=== PATIENT | female | born 1950 | race Caucasian/White ===

== ENCOUNTER 2016-05-26 14:02 | Inpatient (IN) | payer MEDICARE, OTHER ==
[~2016-05-26] VITALS: Ht 170.2 cm; Wt 67.4 kg
[2016-05-26] VITALS (15 sets, daily range): BP systolic 92–166; BP diastolic 58–99; PULSE 44–63; RESP 14–16; TEMP 97.9; O2SAT 99–100
[~2016-05-26 14:02] MED LIST: CALCCHW25 CHEW; DIAZ2TAB PO; HYDR1SOL3 PO; LATA0.002 EACH EYE; PARO30TA2 PO; TIZA4CAP3 PO; TYLETAB34 PO; ZOLE5INJ IV; ZOLE5P IV; ZOLP10TA3 PO
[2016-05-26] MEDS ORDERED: SUCCINYLCHOLINE CHLORIDE 200 MG/10 ML VIAL ONE (14:06)
[2016-05-26] MEDS ORDERED: ETOMIDATE 40 MG/20 ML VIAL ONE (14:06)
[2016-05-26] MEDS ORDERED: PROPOFOL 1000 MG/100 ML INJ 100 ML ONE (14:07)
[2016-05-26] MEDS ORDERED: SODIUM CHLOR 0.9% 1000 ML INJ 1,000 ML IV SCH ×2 (14:14→21:48)
[2016-05-26] MEDS ORDERED: SODIUM CHLORIDE 0.9% FLUSH 5 ML FLUSH IVF PRN (14:15)
[2016-05-26] MEDS ORDERED: SUCCINYLCHOLINE CHLORIDE 200 MG/10 ML VIAL IVP ONE (14:15)
[2016-05-26] MEDS ORDERED: ETOMIDATE 20 MG/10 ML VIAL IVP ONE (14:15)
[2016-05-26] MEDS ORDERED: DEXTROSE 50% IN WATER 50 ML SYRINGE ONE (14:15)
--- NOTE | 2016-05-26 14:34 | RADRPT ---
EXAM DATE/TIME: 05/26/2016 14:22 [facility] COMPARISON: CT BRAIN W/O CONTRAST, June 09, 2012, 11:50. INDICATIONS : Altered mental status. RADIATION DOSE: 34.39 CTDIvol (mGy) MEDICAL HISTORY : Non-responsive. SURGICAL HISTORY : Non-responsive. ENCOUNTER: Initial ACUITY: 1 day PAIN SCALE: 5/10 LOCATION: cranial TECHNIQUE: Multiple contiguous axial images were obtained of the head. Using automated exposure control and adj ustment of the mA and/or kV according to patient size, radiation dose was kept as low as reasonably a chievable to obtain optimal diagnostic quality images. FINDINGS: CEREBRUM: The ventricles are normal for age. No evidence of midline shift, mass lesion, hemorrhage or acute in farction. No extra-axial fluid collections are seen. POSTERIOR FOSSA: The cerebellum and brainstem are intact. The 4th ventricle is midline. The cerebellopontine angle i s unremarkable. EXTRACRANIAL: The visualized portion of the orbits is intact. SKULL: The calvaria is intact. No evidence of skull fracture. CONCLUSION: No acute intracranial disease. Amanuel Hill MD on May 26, 2016 at 14:31 Board Certified Radiologist. This report was verified electronically.
[2016-05-26 15:24] LABS: BLOOD GAS BASE EXCESS -1.9 mmol/L (-2-2); BLOOD GAS HCO3 23 mmol/L (22-26); BLOOD GAS METHEMOGLOBIN 1.8 % (0-2); BLOOD GAS O2 HGB SATURATION 91 % (90-100); BLOOD GAS OXYGEN CONTENT 15.1 Vol % (12.0-20.0); BLOOD GAS PCO2 47 mmHg (38-42); BLOOD GAS PO2 73 mmHG (61-120); BLOOD GAS TOTAL HGB 11.7 G/DL (12.0-16.0); CRITICAL VALUE NO; FIO2 100 %; OXYGEN DEVICE VENTILATOR; TEMP CORR TO 98.6; VENT SETTINGS PRVC/14/500/+5/IT1.0
[2016-05-26 15:25] LABS: DRAW SITE RT RADIAL; NUMBER OF ARTERIAL PUNCTURES 1; STAT YES; ULNAR PULSE PRESENT
--- NOTE | 2016-05-26 15:25 | RADRPT ---
EXAM DATE/TIME: 05/26/2016 15:07 [facility] COMPARISON: No previous studies available for comparison. INDICATIONS : Post intubation. MEDICAL HISTORY : None. SURGICAL HISTORY : None. ENCOUNTER: Initial ACUITY: 1 day PAIN SCORE: Non-responsive. LOCATION: Bilateral chest FINDINGS: A single view of the chest demonstrates endotracheal tube tip in satisfactory position at the level o f the aortic arch. There is patchy left basilar airspace disease. No pneumothorax. No significant eff usion. CONCLUSION: 1. Endotracheal tube in satisfactory position. Patchy left basilar airspace disease. Tomer Tan MD on May 26, 2016 at 15:22 Board Certified Radiologist. This report was verified electronically.
[2016-05-26] MEDS ORDERED: IOHEXOL 350 MG/ML 10 ML VIAL (for RAD DIAG) IV ONE (15:29)
[2016-05-26 15:34] LABS: AUTOMATED NEUTROPHIL # 2.5 TH/MM3 (1.8-7.7); BASOPHIL % 0.9 % (0.0-2.0); EOSINOPHIL # 0.1 TH/MM3 (0-0.4); EOSINOPHIL % 2.6 % (0.0-4.0); HEMATOCRIT 33.3 % (35.0-46.0); HEMO FLAGS DIFF FINAL; MEAN CORPUSCULAR HEMOGLOBIN 28.9 PG (27.0-34.0); MONO % 8.8 % (0.0-8.0); NEUT % 61.7 % (16.0-70.0); PLATELET COUNT 161 TH/MM3 (150-450); RED BLOOD COUNT 3.92 MIL/MM3 (4.00-5.30); RED CELL DISTRIBUTION WIDTH 13.4 % (11.6-17.2)
--- NOTE | 2016-05-26 15:35 | PD ---
HPI Chief Complaint: Altered Mental Status Time Seen by Provider: 14:14 Travel History International Travel<30 days: No Contact w/Intl Traveler<30days: No Traveled to known affect area: No History of Present Illness HPI Is a 65-year-old woman who presents to the emergency department brought in by EMS after she was found down. Her friend and neighbor went to check on her after she didn't show this morning to walk her friend's dog. She was found obtunded. She is not really responding at all. From review of records she has a history of chronic neck and back pain, as well as anxiety and esophageal strictures. No other recent illness or injury. History Past Medical History Narrative Medical History of esophageal stricture status post dilatation Chronic neck pain Chronic back pain Anxiety PNEUMOCCOCAL Vaccine (Year): 2 Menopausal: Yes Social History Alcohol Use: No Tobacco Use: No Allergies-Medications (Allergen,Severity, Reaction): Coded Allergies: Corticosteroids (Verified Allergy, Severe, Anaphylaxis, 05/26/16) Reported Meds & Prescriptions Reported Meds & Active Scripts Active Reclast Inj (Zoledronic Acid) 5 Mg/100 Ml Inj 5 Mg IV Q365D Paroxetine (Paroxetine HCl) 30 Mg Tab 30 Mg PO DAILY Take one in AM daily. Reported Omeprazole 20 Mg Tab 20 Mg PO DAILY Trazodone (Trazodone HCl) 100 Mg Tab 100 Mg PO HS PRN Sertraline (Sertraline HCl) 50 Mg Tab 50 Mg PO DAILY K2 Plus D3 100-1000 Mcg-Unit (Vitamin D & K) 1 Tab Tab 1 Tab PO HS [place] (Hydrocodone-Acetaminophen) 7.5-325 mg Tab 1 Tab PO Q6H PRN Calcium 500 Mg Tab 500 Mg PO DAILY Zolpidem (Zolpidem Tartrate) 10 Mg Tab 10 Mg PO HS PRN Tizanidine (Tizanidine HCl) 4 Mg Cap 2 Mg PO Q6HR Latanoprost Opth Drops (Latanoprost) 0.005% Drops 1 Drop EACH EYE HS Refrigerate until opened. Diazepam 2 Mg Tab 2 Mg PO HS PRN Tylenol-Codeine #3 (Acetaminophen-Codeine) 300-30 mg Tab 1 Tab PO Q4-6H PRN Review of Systems Except as stated in HPI: all other systems reviewed are Neg Physical Exam Narrative GENERAL: 65-year-old woman, obtunded, unresponsive SKIN: Warm and dry. HEAD: Atraumatic. Normocephalic. EYES: Pupils equal and round about 34 mm. Possibly some disconjugate gaze. Doll's eye appears intact. ENT: No nasal bleeding or discharge. Mucous membranes pink and moist. NECK: Trachea midline. No JVD. CARDIOVASCULAR: Regular rate and rhythm. No murmur appreciated. RESPIRATORY: No accessory muscle use. Clear to auscultation. Breath sounds equal bilaterally. GASTROINTESTINAL: Abdomen soft, non-tender, nondistended. Hepatic and splenic margins not palpable. MUSCULOSKELETAL: No obvious deformities. No edema. NEUROLOGICAL: Patient with no response to any stimuli. She will occasionally flicker the left hand. Movement of the lower extremities. Data Data Last Documented VS Vital Signs Date Time Temp Pulse Resp B/P Pulse Ox O2 Delivery O2 Flow Rate FiO2 05/26/16 16:34 100 05/26/16 16:00 45 15 131/73 100 Ventilator 05/26/16 14:15 97.9 Orders Etomidate Inj (Amidate Inj) (05/26/16 14:06) Succinylcholine Inj (Quelicin Inj) (05/26/16 14:06) Propofol 1000 Mg/100 Ml Inj (Diprivan 10 (05/26/16 14:07) Dextrose 50% In Tl (Syr) Inj (D50w (Syr (05/26/16 14:15) Electrocardiogram (05/26/16 14:14) Alcohol (Ethanol) (05/26/16 14:14) Complete Blood Count With Diff (05/26/16 14:14) Comprehensive Metabolic Panel (05/26/16 14:14) Drug Screen, Random Urine (05/26/16 14:14) Prothrombin Time / Inr (Pt) (05/26/16 14:14) Act Partial Throm Time (Ptt) (05/26/16 14:14) Salicylates (Aspirin) (05/26/16 14:14) Troponin I (05/26/16 14:14) Tylenol (Acetaminophen) (05/26/16 14:14) Lactic Acid Sepsis Protocol (05/26/16 14:14) Urinalysis - C+S If Indicated (05/26/16 14:14) Arterial Blood Gas (Abg) (05/26/16 14:14) Blood Culture (05/26/16 14:14) Chest, Single Ap (05/26/16 14:14) Ct Brain W/O Iv Contrast(Rout) (05/26/16 14:14) Blood Glucose (05/26/16 14:14) Ecg Monitoring (05/26/16 14:14) Iv Access Insert/Monitor (05/26/16 14:14) Oximetry (05/26/16 14:14) Urinary Catheter Insert/Apply (05/26/16 14:14) Sodium Chloride 0.9% Flush (Ns Flush) (05/26/16 14:15) Sodium Chlor 0.9% 1000 Ml Inj (Ns 1000 M (05/26/16 14:14) Ng Gastric Tube Insert/Monitor (05/26/16 14:14) Etomidate Inj (Amidate Inj) (05/26/16 14:15) Succinylcholine Inj (Quelicin Inj) (05/26/16 14:15) Restraints Non-Violent ANDRESSA.Q3H (05/26/16 14:14) Cta Neck W Iv Contrast W 3d (05/26/16 ) Cta Brain W Iv Contrast W 3d (05/26/16 ) Ct Cerebral Perf W Iv Cont W3d (05/26/16 ) Iohexol 350 Inj (Omnipaque 350 Inj) (05/26/16 15:29) Creatine Kinase (Cpk) (05/26/16 15:41) Eeg Study (05/26/16 ) Thyroid Stimulating Hormone (05/26/16 17:14) Piperacil-Tazo 4.5 Gm Premix (Zosyn 4.5 (05/26/16 17:15) Consult Neurology (05/26/16 ) Admit Order (Ed Use Only) (05/26/16 ) Labs Laboratory Tests Test 05/26/16 05/26/16 05/26/16 15:05 15:14 15:20 White Blood Count 4.0 TH/MM3 Red Blood Count 3.92 MIL/MM3 Hemoglobin 11.3 GM/DL Hematocrit 33.3 % Mean Corpuscular Volume 85.0 FL Mean Corpuscular Hemoglobin 28.9 PG Mean Corpuscular Hemoglobin 34.0 % Concent Red Cell Distribution Width 13.4 % Platelet Count 161 TH/MM3 Mean Platelet Volume 9.5 FL Neutrophils (%) (Auto) 61.7 % Lymphocytes (%) (Auto) 26.0 % Monocytes (%) (Auto) 8.8 % Eosinophils (%) (Auto) 2.6 % Basophils (%) (Auto) 0.9 % Neutrophils # (Auto) 2.5 TH/MM3 Lymphocytes # (Auto) 1.0 TH/MM3 Monocytes # (Auto) 0.3 TH/MM3 Eosinophils # (Auto) 0.1 TH/MM3 Basophils # (Auto) 0.0 TH/MM3 CBC Comment DIFF FINAL Differential Comment Prothrombin Time 10.8 SEC Prothromb Time International 1.0 RATIO Ratio Activated Partial 20.2 SEC Thromboplast Time Sodium Level 138 MEQ/L Potassium Level 3.4 MEQ/L Chloride Level 105 MEQ/L Carbon Dioxide Level 23.7 MEQ/L Anion Gap 9 MEQ/L Blood Urea Nitrogen 14 MG/DL Creatinine 0.80 MG/DL Estimat Glomerular Filtration 72 ML/MIN Rate Random Glucose 218 MG/DL Lactic Acid Level 2.8 mmol/L Calcium Level 7.8 MG/DL Total Bilirubin 0.4 MG/DL Aspartate Amino Transf 11 U/L (AST/SGOT) Alanine Aminotransferase 19 U/L (ALT/SGPT) Alkaline Phosphatase 56 U/L Troponin I LESS THAN 0.02 NG/ML Total Protein 5.6 GM/DL Albumin 2.8 GM/DL Salicylates Level LESS THAN 1.7 MG/DL Acetaminophen Level 14.9 MCG/ML Ethyl Alcohol Level LESS THAN 3 MG/DL Blood Gas Puncture Site RT RADIAL Blood Gas Patient Temperature 98.6 Blood Gas HCO3 23 mmol/L Blood Gas Base Excess -1.9 mmol/L Blood Gas Oxygen Saturation 91 % Arterial Blood pH 7.31 Arterial Blood Partial 47 mmHg Pressure CO2 Arterial Blood Partial 73 mmHG Pressure O2 Arterial Blood Oxygen Content 15.1 Vol % Arterial Blood 2.0 % Carboxyhemoglobin Arterial Blood Methemoglobin 1.8 % Blood Gas Hemoglobin 11.7 G/DL Oxygen Delivery Device VENTILATOR Blood Gas Ventilator Setting PRVC/14/500/+5/IT1.0 Blood Gas Inspired Oxygen 100 % Urine Color YELLOW Urine Turbidity CLEAR Urine pH 5.5 Urine Specific [place] GREATER THAN 1.050 Urine Protein TRACE mg/dL Urine Glucose (UA) 1000 mg/dL Urine Ketones NEG mg/dL Urine Occult Blood NEG Urine Nitrite NEG Urine Bilirubin NEG Urine Urobilinogen LESS THAN 2.0 MG/DL Urine Leukocyte Esterase NEG Urine RBC 1 /hpf Urine WBC 2 /hpf Urine Squamous Epithelial <1 /hpf Cells Urine Mucus FEW /lpf Microscopic Urinalysis Comment CATH-CULT NOT IND Urine Opiates Screen POS Urine Barbiturates Screen NEG Urine Amphetamines Screen NEG Urine Benzodiazepines Screen POS Urine Cocaine Screen NEG Urine Cannabinoids Screen NEG MDM Medical Decision Making Medical Screen Exam Complete: Yes Emergency Medical Condition: Yes Interpretation(s) My review of EKG: Sinus bradycardia rate of 44, normal axis, normal intervals, no acute ischemia. LABS: CBC unremarkable. CMP unremarkable, hypoproteinemia, glucose 218 Troponin negative Lactate 2.8 ABG 7.31/47/73/23 UA concentrated Urine drug screen positive for opiates and benzos Acetaminophen 14.9 Alcohol negative Salicylates negative Head CT, CTA, neck CTA, brain perfusion all negative Differential Diagnosis Massive CVA, basilar CVA, sepsis, AZ, arrhythmia, other Narrative Course INITIAL: 65-year-old woman presents to the emergency department obtunded. Etiology is unclear but suspect massive CVA. Other etiologies could include hypoxic encephalopathy from ischemia, AZ, arrhythmia, sepsis. Infection or drug toxicity possible as well electrolyte possible. Patient was intubated on arrival to the emergency department. Patient was initially taken for CT which was negative. Given concern for basilar artery stroke, CTA with perfusion was ordered. Labs are pending. Cultures were sent. Reassess. FINAL: Etiology of patient's symptoms is unclear. We'll add TSH. Possible benzodiazepines or opiates poisoning. Admission to ICU. Diagnosis Primary Impression: Altered mental status Qualified Code: R40.2432 - Corine coma scale total score 3-8, at arrival to emergency department Admitting Information Admitting Physician Requests: Admit Solitario Davidson MD May 26, 2016 15:35
[2016-05-26 15:40] LABS: ANION GAP 9 MEQ/L (5-15); AST (GOT) 11 U/L (15-37); BICARBONATE 23.7 MEQ/L (21.0-32.0); BLOOD UREA NITROGEN 14 MG/DL (7-18); CHLORIDE 105 MEQ/L (98-107); GLOMERULAR FILTRATION RATE 72 ML/MIN (>89); POTASSIUM 3.4 MEQ/L (3.5-5.1); SODIUM (NA) 138 MEQ/L (136-145)
[2016-05-26 15:45] LABS: ACETAMINOPHEN 14.9 MCG/ML (10.0-30.0); ALKALINE PHOSPHATASE 56 U/L (45-117); ALT (GPT) 19 U/L (10-53); TOTAL BILIRUBIN ADULT 0.4 MG/DL (0.2-1.0)
[2016-05-26 15:46] LABS: BLOOD, URINE NEG (NEG); GLUCOSE,URINE 1000 mg/dL (NEG); KETONE, URINE NEG (NEG); MUCUS URINE FEW /lpf (OCC); NITRITE,URINE NEG (NEG); PH, URINE 5.5 (5.0-8.5); SQUAMOUS EPITHELIAL CELL URINE <1 /hpf (0-5); URINE COLOR YELLOW (YELLW/STRAW)
[2016-05-26 15:47] LABS: APTT (PATIENT) 20.2 SEC (24.3-30.1); PROTHROMBIN TIME - PATIENT 10.8 SEC (9.8-11.6)
[2016-05-26 15:49] LABS: AMPHETAMINE, URINE NEG (NEG); BARBITURATES, URINE NEG (NEG); COCAINE, URINE NEG (NEG)
[2016-05-26] MEDS ORDERED: CALC500T42 PO (15:51)
[2016-05-26] MEDS ORDERED: SERT-132 PO (15:51)
[2016-05-26] MEDS ORDERED: HYDR-3288 PO (15:51)
[2016-05-26] MEDS ORDERED: OMEP20TA PO (15:51)
[2016-05-26] MEDS ORDERED: TRAZ100T4 PO (15:51)
[2016-05-26] MEDS ORDERED: VITA1TAB6 PO (15:51)
--- NOTE | 2016-05-26 16:04 | RADRPT ---
EXAM DATE/TIME: 05/26/2016 14:43 [facility] COMPARISON: CT THORAX W/O CONTRAST, March 17, 2012, 16:41. INDICATIONS : Altered mental status. IV CONTRAST: 120 cc Omnipaque 350 (iohexol) IV RADIATION DOSE: 20.36 CTDIvol (mGy) MEDICAL HISTORY : Non-responsive. SURGICAL HISTORY : Non-responsive. ENCOUNTER: Initial ACUITY: 1 day PAIN SCALE: 5/10 LOCATION: neck TECHNIQUE: Volumetric scanning was performed using a multirow detector CT scanner. The data was post processed with a variety of visualization algorithms including full-volume maximum intensity projection, multip lanar sliding thin-slab reformation, curved-planar reformation, and surface-rendering techniques. Us ing automated exposure control and adjustment of the mA and/or kV according to patient size, radiatio n dose was kept as low as reasonably achievable to obtain optimal diagnostic quality images. FINDINGS: AORTIC ARCH: There is a three-vessel origin of the great vessels from the aorta. No evidence of ostial narrowing. RIGHT CAROTID: The common carotid artery is intact. The carotid bulb has a normal configuration without ulceration o r narrowing. The internal carotid artery lumen is smooth without stenosis. The external carotid erica ry is intact. LEFT CAROTID: The common carotid artery is intact. The carotid bulb has a normal configuration without ulceration or narrowing. The internal carotid artery lumen is smooth without stenosis. The external carotid ar armando is intact. VERTEBRALS: Left vertebral artery is dominant. No stenotic lesions are seen. CONCLUSION: 1. CTA carotids within normal limits for age. Patient intubated. Multiple small thyroid nodules simil ar to prior chest CT from 2011. Tomer Tan MD on May 26, 2016 at 15:59 Board Certified Radiologist. This report was verified electronically.
--- NOTE | 2016-05-26 16:08 | RADRPT ---
EXAM DATE/TIME: 05/26/2016 14:43 [facility] COMPARISON: No previous studies available for comparison. INDICATIONS : Altered mental status, vented. IV CONTRAST: 120 cc Omnipaque 350 (iohexol) IV RADIATION DOSE: 20.36 CTDIvol (mGy) MEDICAL HISTORY : Non-responsive. SURGICAL HISTORY : Non-responsive. ENCOUNTER: Initial ACUITY: 1 day PAIN SCALE: 5/10 LOCATION: cranial TECHNIQUE: Volumetric scanning was performed using a multi-row detector CT scanner. The data was post processed with a variety of visualization algorithms including full volume maximum intensity projection, multi -planar sliding thin slab reformation, curved planar reformation, and surface rendering techniques. Using automated exposure control and adjustment of the mA and/or kV according to patient size, radiat ion dose was kept as low as reasonably achievable to obtain optimal diagnostic quality images. FINDINGS: There is excellent visualization of the major intracranial arteries out to the second-order branch ve ssels. There is no evidence for aneurysm, vessel truncation or stenosis, and no evidence for vascula r malformation. CONCLUSION: Normal examination for a patient of this age. Tomer Tan MD on May 26, 2016 at 16:02 Board Certified Radiologist. This report was verified electronically.
--- NOTE | 2016-05-26 16:08 | RADRPT ---
EXAM DATE/TIME: 05/26/2016 14:43 [facility] COMPARISON: No previous studies available for comparison. INDICATIONS : Altered mental status. IV CONTRAST: 120 cc Omnipaque 350 (iohexol) IV RADIATION DOSE: 40.36 CTDIvol (mGy) MEDICAL HISTORY : Non-responsive. SURGICAL HISTORY : Non-responsive. ENCOUNTER: Initial ACUITY: 1 day PAIN SCALE: 5/10 LOCATION: cranial TECHNIQUE: CT perfusion of the brain was performed with calculation of input and output functions and generation of color coded blood flow, blood volume and mean transit time maps. Using automated exposure control and adjustment of the mA and/or kV according to patient size, radiation dose was kept as low as reas onably achievable to obtain optimal diagnostic quality images. FINDINGS: There is symmetric perfusion to both cerebral hemispheres, cerebellar hemispheres and normal flow is identified to the brainstem. There are no findings of infarction or ischemic penumbra. CONCLUSION: Normal examination. Tomer Tan MD on May 26, 2016 at 16:07 Board Certified Radiologist. This report was verified electronically.
[2016-05-26 16:17] LABS: COMMENT (UR) CATH-CULT NOT IND; CULTURE IF INDICATED CATH CULTURE NOT IND
[2016-05-26] MEDS ORDERED: PIPERACIL-TAZO 4.5 GM PREMIX 100 ML IV ONE (17:15)
[2016-05-26 17:20] LABS: LACTIC ACID GHOST NOT REPORTABLE
--- NOTE | 2016-05-26 18:26 | MB ---
cc: ADRIANA VOGEL MD DATE OF CONSULTATION 05/26/2016 REASON FOR CONSULTATION Altered mental status. HISTORY OF PRESENT ILLNESS The patient is vented and sedated in the emergency room. I was called in to see a 65-year-old female Ms. Cortes, who presented to the emergency department by EMS after she was found down. According to her friend and neighbor, she said they call each other sisters. She went to check on her when she did not show up this morning and she found her obtunded, not responding at all. She called EMS. The friend states that she always had "weak neck and stiff neck" that is why she retired early. She has also esophageal strictures and has undergone dilatation. She denies any recent change of her medication or lifestyle. PAST MEDICAL HISTORY 1. History of esophageal stricture status post dilatation. 2. Chronic neck pain. 3. Chronic back pain. 4. Anxiety as per the friend. SOCIAL HISTORY Denies alcohol, tobacco and recreational drug use as per her friend. FAMILY HISTORY Noncontributory. ALLERGIES STEROIDS. REVIEW OF SYSTEMS Unable to obtain. PHYSICAL EXAMINATION GENERAL: Vented sedated. HEENT: Pupils are equal, reacting to light, 2-3 mm. Head atraumatic, normocephalic. Eyes no gazing. NECK: Trachea in the midline. CARDIOVASCULAR: Regular rate and rhythm. Bradycardia, 40s. LUNGS: Clear to auscultation. No wheezes. NEUROLOGICAL: Vented, sedated. Pupils 2-3 mm equally reacting to light. No gazing. Plantars bilateral upgoing. There is some fullness of the right side of the neck. LABORATORY DATA White blood cells 4, hemoglobin 11.3, platelet count was 161. MCV 85. IMAGING Diagnostic imaging: - Head CT scan without contrast with no acute intracranial disease. DIAGNOSTIC IMPRESSION 1. Encephalopathy? metabolic/infectious 2. Unresponsive patient. No history of seizures. Possible posterior circulation stroke, vertebrobasilar ischemic stroke. PLAN 1. Neurological checks q. one hourly. 2. CTA head and neck. 3. Metabolic workup. 4. EEG. 5. DVT prophylaxis SCDs. 6. GI prophylaxis. Thank you for the opportunity to participate in the care of your patient. MD GILLIAN Aviles/MICHAELA /4:08 PM /6:10 PM SHANNON
[2016-05-26] MEDS ORDERED: POTASSIUM CHLOR 40 MEQ PREMIX 100 ML IV PRN ×2 (18:45)
[2016-05-26] MEDS ORDERED: POTASSIUM PHOSPHATE MONOBASIC 500 MG TAB PO PRN (18:45)
[2016-05-26] MEDS ORDERED: MAGNESIUM SULFATE INJ 2 GM in SODIUM CHLORIDE 0.9% INJ 96 ML IV PRN (18:45)
[2016-05-26] MEDS ORDERED: DEXTROSE 50% IN WATER 50 ML VIAL(D50) IV PUSH PRN (18:45)
[2016-05-26] MEDS ORDERED: GLUCAGON 1 MG/ML VIAL OTHER PRN (18:45)
[2016-05-26] MEDS ORDERED: POTASSIUM CL 40 MEQ/30 ML LIQ UDC PO/TUBE PRN ×2 (18:45)
[2016-05-26] MEDS ORDERED: POTASSIUM PHOSPHATE MONOBASIC 500 MG TAB PO/TUBE PRN (18:45)
[2016-05-26] MEDS ORDERED: MAGNESIUM SULFATE INJ 4 GM in SODIUM CHLORIDE 0.9% INJ 92 ML IV PRN (18:45)
[2016-05-26] MEDS ORDERED: MAGNESIUM OXIDE 400 MG TAB PO PRN (18:45)
[2016-05-26] MEDS ORDERED: POTASSIUM CHLOR 20 MEQ PREMIX 100 ML IV PRN ×2 (18:45)
[2016-05-26] MEDS ORDERED: PROPOFOL 1000 MG/100 ML INJ 100 ML IV SCH (19:45)
--- NOTE | 2016-05-26 21:04 | HHI.HP ---
HPI Service Critical Care Medicine Primary Care Physician Velma Morales MD Admission Diagnosis ams, COMA Diagnosis: Travel History International Travel<30 Days: No Contact w/Intl Traveler <30 Da: No Traveled to Known Affected Are: No History of Present Illness 65-year-old female with past medical history of chronic neck pain secondary to cervical radiculopathy, GERD, esophageal stricture s/p dilations. Her friend states she was in her usual state of health yesterday and had been out shopping with another neighbor. Today, she was not answering her phone and her neighbor saw her laying on the floor, not responsive to knocks on the door. She called 911 and patient was obtunded upon EVAC arrival. Upon arrival to the ED she was noted to be unresponsive to noxious stimuli, occasional flicker of left hand, disconjugate gaze. She was intubated for airway protection. Glucose 53. CT brain was negative. Alcohol, Tylenol, salicylate levels are negative. Urine drug screen is positive for benzodiazepines and opiates. She is on multimodal pain therapy including benzos and opiates for her neck pain. There was no obvious witnessed seizure activity. She is afebrile with no leukocytosis. She has been seen by Dr. Perez with neurology. CTA brain and neck was obtained due to concern for posterior circulation stroke. These were negative. EEG is pending. Review of Systems ROS Limitations: Clinical Condition, Intubated Past Family Social History Allergies: Coded Allergies: Corticosteroids (Verified Allergy, Severe, Anaphylaxis, 05/26/16) Past Medical History Glaucoma Cataracts Retinal detachment Cervical radiculopathy Chronic pain GERD Esophageal stricture s/p dilitation. Diverticulosis Osteopenia Past Surgical History Left ankle tendon surgery Right knee surgery Esophageal stricture dilation Jaw surgery Cataract removal Reported Medications Paroxetine 30 monos by mouth daily Sertraline 50 mg by mouth daily Trazodone 100 mg by mouth daily at bedtime when necessary sleep Ambien 10 mg by mouth daily at bedtime Diazepam to mill grams by mouth daily at bedtime Reclast 5 mill grams IV annually Tizanidine 2 mg by mouth every 6 hours when necessary muscle spasm Tylenol with Codeine 1 tab by mouth every 4 hours when necessary pain [place] 7.5 mg 1 tab by mouth every 6 hours when necessary pain Latanoprost one drop each eye daily at bedtime Omeprazole 20 mg by mouth daily Calcium 500 mg by mouth daily Vitamin D and vitamin K 1 tab by mouth daily at bedtime Family History Her father has a history of coronary artery disease; Unknown at what age of onset. Mother with diabetes mellitus Social History No history of tobacco alcohol or illicit drug use. Not . No children. Her friend and neighbor, Jeimy Diaz, states she is her healthcare surrogate. Physical Exam Vital Signs Vital Signs Date Time Temp Pulse Resp B/P Pulse Ox O2 Delivery O2 Flow Rate FiO2 05/26/16 20:30 61 14 150/82 100 Ventilator 05/26/16 20:22 62 14 166/99 100 Ventilator 05/26/16 20:05 100 40 05/26/16 17:57 100 50 05/26/16 17:43 45 14 92/58 100 Ventilator 100 05/26/16 16:34 100 05/26/16 16:00 45 15 131/73 100 Ventilator 100 05/26/16 15:00 100 100 05/26/16 15:00 44 15 153/76 100 Ventilator 100 05/26/16 14:30 44 14 142/78 100 Ventilator 100 05/26/16 14:15 97.9 45 16 128/71 100 Ventilator 100 05/26/16 14:15 45 16 100 Ventilator 100 05/26/16 14:15 45 14 128/71 100 Ventilator 100 05/26/16 14:15 100 100 05/26/16 14:04 48 124/69 99 Physical Exam Temp 97.9 blood pressure 144 of 81 pulse 60 respirations 14 on mechanical ventilation with PEEP of 5 and FiO2 40% with sats 100% GENERAL: Very thin female with temporal wasting, orotracheally intubated on sedation. SKIN: Warm and dry. There is an ecchymosis overlying her left upper arm without deformity. HEAD: Normocephalic. Atraumatic EYES: Pupils equal and round, 6 mm reactive to 4 mm bilaterally, sluggish. No scleral icterus. No injection or drainage. ENT: No nasal bleeding or discharge. Mucous membranes pink and moist. NECK: Trachea midline. No JVD. No meningismus CARDIOVASCULAR: Regular rate and rhythm, sinus rhythm on the monitor.. No murmurs rubs or gallops. RESPIRATORY: On mechanical ventilation, breathing comfortably without accessory muscle use. Lungs clear to auscultation bilaterally GASTROINTESTINAL: Abdomen soft, non-tender, nondistended. Bowel sounds active. MUSCULOSKELETAL: Extremities without clubbing, cyanosis, or edema. No obvious deformities. NEUROLOGICAL: Sedation held. Resists attempts at eye opening initially, later opened eyes spontaneously, made eye contact and tracked bilaterally. Follows commands by squeezing hands bilaterally and moving feet bilaterally. No response to Babinski. Laboratory Laboratory Tests Test 05/26/16 05/26/16 05/26/16 05/26/16 15:05 15:14 15:20 20:15 White Blood Count 4.0 Red Blood Count 3.92 Hemoglobin 11.3 Hematocrit 33.3 Mean Corpuscular Volume 85.0 Mean Corpuscular Hemoglobin 28.9 Mean Corpuscular Hemoglobin 34.0 Concent Red Cell Distribution Width 13.4 Platelet Count 161 Mean Platelet Volume 9.5 Neutrophils (%) (Auto) 61.7 Lymphocytes (%) (Auto) 26.0 Monocytes (%) (Auto) 8.8 Eosinophils (%) (Auto) 2.6 Basophils (%) (Auto) 0.9 Neutrophils # (Auto) 2.5 Lymphocytes # (Auto) 1.0 Monocytes # (Auto) 0.3 Eosinophils # (Auto) 0.1 Basophils # (Auto) 0.0 CBC Comment DIFF FINAL Differential Comment Prothrombin Time 10.8 Prothromb Time International 1.0 Ratio Activated Partial 20.2 Thromboplast Time Sodium Level 138 Potassium Level 3.4 Chloride Level 105 Carbon Dioxide Level 23.7 Anion Gap 9 Blood Urea Nitrogen 14 Creatinine 0.80 Estimat Glomerular Filtration 72 Rate Random Glucose 218 Lactic Acid Level 2.8 Calcium Level 7.8 Total Bilirubin 0.4 Aspartate Amino Transf 11 (AST/SGOT) Alanine Aminotransferase 19 (ALT/SGPT) Alkaline Phosphatase 56 Troponin I LESS THAN 0.02 Total Protein 5.6 Albumin 2.8 Salicylates Level LESS THAN 1.7 Acetaminophen Level 14.9 Ethyl Alcohol Level LESS THAN 3 Blood Gas Puncture Site RT RADIAL Blood Gas Patient Temperature 98.6 Blood Gas HCO3 23 Blood Gas Base Excess -1.9 Blood Gas Oxygen Saturation 91 Arterial Blood pH 7.31 Arterial Blood Partial 47 Pressure CO2 Arterial Blood Partial 73 Pressure O2 Arterial Blood Oxygen Content 15.1 Arterial Blood 2.0 Carboxyhemoglobin Arterial Blood Methemoglobin 1.8 Blood Gas Hemoglobin 11.7 Oxygen Delivery Device VENTILATOR Blood Gas Ventilator Setting PRVC/14/500/+5/IT1.0 Blood Gas Inspired Oxygen 100 Urine Color YELLOW Urine Turbidity CLEAR Urine pH 5.5 Urine Specific [place] GREATER THAN 1.050 Urine Protein TRACE Urine Glucose (UA) 1000 Urine Ketones NEG Urine Occult Blood NEG Urine Nitrite NEG Urine Bilirubin NEG Urine Urobilinogen LESS THAN 2.0 Urine Leukocyte Esterase NEG Urine RBC 1 Urine WBC 2 Urine Squamous Epithelial <1 Cells Urine Mucus FEW Microscopic Urinalysis Comment CATH-CULT NOT IND Urine Opiates Screen POS Urine Barbiturates Screen NEG Urine Amphetamines Screen NEG Urine Benzodiazepines Screen POS Urine Cocaine Screen NEG Urine Cannabinoids Screen NEG Ammonia 17 Date/Time Procedure Status Source Growth 05/26/16 15:05 Aerobic Blood Culture Received Blood Peripheral Pending 05/26/16 15:05 Anaerobic Blood Culture Received Blood Peripheral Pending Result Diagram: 05/26/16 1505 05/26/16 1505 Assessment and Plan Problem List: (1) GERD (gastroesophageal reflux disease) ICD Code: K21.9 Status: Chronic (2) Esophagitis ICD Code: K20.9 Status: Chronic (3) Esophageal stricture ICD Code: K22.2 Status: Chronic (4) Lactic acidemia ICD Code: E87.2 Status: Acute (5) Acute encephalopathy ICD Code: G93.40 Status: Acute (6) Chronic pain ICD Code: G89.29 Status: Chronic (7) Glaucoma ICD Code: H40.9 Status: Chronic (8) Hypokalemia ICD Code: E87.6 Status: Acute (9) Acute respiratory failure ICD Code: J96.00 Status: Acute (10) Altered mental status ICD Code: R41.82 Status: Acute (11) Hypoglycemia ICD Code: E16.2 Status: Acute Assessment and Plan NEURO: Acute encephalopathy ? Seizure CT brain 05/26/16no acute abnormality CTA brain and neck with perfusion 05/26/16normal Follow-up MRI Follow-up EEG Suspicious for seizure - Lactic acid is elevated but otherwise does not have signs of sepsis or poor perfusion. Patient with hypoglycemia. Other possibility is due sedative effect of medications, possible overdose. Mild hypercapnea on post intubation ABG. No e/o COPD Follow-up ammonia level, B-12, TSH Platelets normal Propofol for sedation. Target RASS -2. Seen by Dr. Perez with neurology RESP: Acute respiratory failure Nonsmoker PRVC tidal volume 500/rate 14/P5/inspiratory time 1/FiO2 40% Ventilator bundle. Albuterol every 2 hours when necessary Spontaneous breathing trial soon, as she is following commands now. CV: Monitor hemodynamics Troponin negative EKG NSR rate 61, normal intervals, no st/twave changes. She had a negative cardiac stress test in 2007 GI: GERD History of esophageal stricture status post dilatation Diverticulosis Nothing by mouth. OGT tube to low intermittent wall suction. We'll not initiate enteral tube feeds because anticipate extubation soon. Colace 100 bid for bowel regimen. FEN/RENAL: Lactic acidemia Hypokalemia Hypophosphatemia Torres in place. Monitor intake and output. Received 1 L NS bolus in ED. Give additional 1 L NS bolus. D5 1/2 NACl with 20 MEQ KCL/L @ 125/hr. Replace electrolytes per ICU electrolyte replacement per protocol CPK is normal Monitor creatinine ID: Acute aspiration. No leukocytosis. Chest x-ray with left lower lobe opacity. UA without evidence for infection. Received zosyn in the ED. Continue Zosyn 3.375 IV every 6 hours (probable aspiration pneumonia, community acquired) Follow-up blood cultures which are pending, HEME: Monitor CBC. Coags normal. ENDO: Hypoglycemia Glucose 53 and then given amp D50 PROPH: SCDs, Lovenox 40 mg subcutaneous daily for DVT prophylaxis. Protonix 40 mg IV daily for stress ulcer prophylaxis and history of GERD ACCESS: Peripheral IV providing adequate access at this time I updated patient's friend and reported healthcare surrogate, Jeimy Diaz, by telephone. Discussed with ED care worker time 60 minutes exclusive separately billable procedures. Problem Qualifiers (1) Altered mental status: Qualified Code: R40.2432 - [place] coma scale total score 3-8, at arrival to emergency department Leanna Amezquita MD May 26, 2016 21:04 Leanna Amezquita MD May 26, 2016 21:04
[2016-05-26] MEDS ORDERED: RESP: ALBUTEROL 2.5 MG/3 ML NEB (PRN) INH (22:00)
[2016-05-26] MEDS ORDERED: CHLORHEXIDINE GLUCONATE 2 % 1 PACK (2 CLOTHS) TOP PRN (22:00)
[2016-05-26] MEDS ORDERED: MISCELLANEOUS NURSING INFORMATION XX SCH (22:00)
[2016-05-26] MEDS ORDERED: SODIUM CHLORIDE 0.9% FLUSH 5 ML FLUSH IV FLUSH PRN (22:00)
[2016-05-26] MEDS: ENOXAPARIN SODIUM 40 MG/0.4 ML SYRINGE SQ SCH (23:32)
[2016-05-26] MEDS: PIPERACIL-TAZO 3.375 GM PREMIX 50 ML IV SCH (23:51)
[2016-05-27] VITALS (24 sets, daily range): BP systolic 124–151; BP diastolic 56–67; PULSE 70–86; RESP 14–20; TEMP 98.5–100.2; O2SAT 91–100
[2016-05-27] MEDS ORDERED: POTASSIUM PHOSPHATE INJ 30 MMOL in SODIUM CHLOR 0.9% 250 ML INJ 250 ML IV ONE (01:15)
[2016-05-27] MEDS ORDERED: SODIUM CHLOR 0.9% 1000 ML INJ 1,000 ML IV ONE (01:15)
[2016-05-27] MEDS ORDERED: PANTOPRAZOLE SODIUM 40 MG VIAL IV SCH ×2 (01:30→09:00)
[2016-05-27] MEDS: D5-1/2 NS + KCL 20 MEQ INJ 1,000 ML IV SCH ×2 (02:16→08:25)
[2016-05-27 02:44] LABS: HEMATOCRIT 39.2 % (35.0-46.0); MEAN CELL VOLUME 86.5 FL (80.0-100.0); MEAN CORPUSCULAR HEMOGLOBIN 29.1 PG (27.0-34.0); MEAN CORPUSCULAR HGB CONC 33.6 % (32.0-36.0); PLATELET COUNT 169 TH/MM3 (150-450); RED BLOOD COUNT 4.54 MIL/MM3 (4.00-5.30); RED CELL DISTRIBUTION WIDTH 13.5 % (11.6-17.2); REVIEW FLAG FINAL; WHITE BLOOD COUNT 9.4 TH/MM3 (4.0-11.0)
[2016-05-27] MEDS: CHLORHEXIDINE GLUCONATE 2 % 1 PACK (2 CLOTHS) TOP SCH (04:00)
[2016-05-27] MEDS ORDERED: INSULIN ASPART SUPPLEMENTAL SCALE SQ SCH ×2 (04:00)
[2016-05-27] MEDS: PIPERACIL-TAZO 3.375 GM PREMIX 50 ML IV SCH ×3 (05:58→17:16)
[2016-05-27] MEDS: PROPOFOL 1000 MG/100 ML INJ 100 ML IV SCH ×4 (05:59→20:51)
[2016-05-27 06:13] LABS: AUTOMATED NEUTROPHIL # 7.1 TH/MM3 (1.8-7.7); BASOPHIL % 0.4 % (0.0-2.0); EOSINOPHIL # 0.1 TH/MM3 (0-0.4); EOSINOPHIL % 1.4 % (0.0-4.0); HEMATOCRIT 38.9 % (35.0-46.0); HEMO FLAGS DIFF FINAL; LYMPH % 10.5 % (9.0-44.0); MEAN CELL VOLUME 86.9 FL (80.0-100.0); MEAN CORPUSCULAR HEMOGLOBIN 28.5 PG (27.0-34.0); MEAN CORPUSCULAR HGB CONC 32.9 % (32.0-36.0); MONO % 11.8 % (0.0-8.0); NEUT % 75.9 % (16.0-70.0); PLATELET COUNT 151 TH/MM3 (150-450); RED BLOOD COUNT 4.48 MIL/MM3 (4.00-5.30); RED CELL DISTRIBUTION WIDTH 13.4 % (11.6-17.2); WHITE BLOOD COUNT 9.4 TH/MM3 (4.0-11.0)
[2016-05-27 06:35] LABS: ANION GAP 10 MEQ/L (5-15); BICARBONATE 28.2 MEQ/L (21.0-32.0); CHLORIDE 107 MEQ/L (98-107); GLOMERULAR FILTRATION RATE 91 ML/MIN (>89); POTASSIUM 3.5 MEQ/L (3.5-5.1); SODIUM (NA) 145 MEQ/L (136-145)
[2016-05-27 06:39] LABS: BLOOD UREA NITROGEN 10 MG/DL (7-18)
[2016-05-27] MEDS ORDERED: PANTOPRAZOLE INJ 80 MG in SODIUM CHLORIDE 0.9% INJ 35 ML IV ONE (07:15)
[2016-05-27] MEDS ORDERED: PANTOPRAZOLE INJ 80 MG in SODIUM CHLORIDE 0.9% INJ 100 ML IV SCH (07:15)
[2016-05-27] MEDS: SODIUM CHLORIDE 0.9% FLUSH 5 ML FLUSH IV FLUSH SCH ×2 (08:22→23:02)
[2016-05-27] MEDS: CHLORHEXIDINE 0.12% (ORAL KIT) 15 ML CUP MT SCH ×2 (08:24→20:00)
[2016-05-27] MEDS ORDERED: DEXTROSE 50% IN WATER 50 ML VIAL(D50) IV PUSH PRN (08:45)
[2016-05-27] MEDS ORDERED: GLUCAGON 1 MG/ML VIAL OTHER PRN (08:45)
--- NOTE | 2016-05-27 08:46 | HHI.CCPN ---
Subjective Remarks/Hospital Course 65-year-old female with past medical history of chronic neck pain secondary to cervical radiculopathy, GERD, esophageal stricture s/p dilations. Her friend states she was in her usual state of health yesterday and had been out shopping with another neighbor. Today, she was not answering her phone and her neighbor saw her laying on the floor, not responsive to knocks on the door. She called 911 and patient was obtunded upon EVAC arrival. Upon arrival to the ED she was noted to be unresponsive to noxious stimuli, occasional flicker of left hand, disconjugate gaze. She was intubated for airway protection. Glucose 53. CT brain was negative. Alcohol, Tylenol, salicylate levels are negative. Urine drug screen is positive for benzodiazepines and opiates. She is on multimodal pain therapy including benzos and opiates for her neck pain. There was no obvious witnessed seizure activity. She is afebrile with no leukocytosis. She has been seen by Dr. Perez with neurology. CTA brain and neck was obtained due to concern for posterior circulation stroke. These were negative. EEG is pending. 05/27 Patient is sedated with Diprivan and intubated. For MRI brain today. Patient had approx 300ml coffee ground/bloody fluid from OGT overnight placed on Protonix drip. H/H stable. Objective Vital Signs Date Time Temp Pulse Resp B/P Pulse Ox O2 Delivery O2 Flow Rate FiO2 05/27/16 07:41 100 35 05/27/16 06:00 82 05/27/16 04:00 98.5 15 131/63 05/26/16 23:31 Ventilator Result Diagram: 05/27/16 0540 05/27/16 0540 Other Results Laboratory Tests Test 05/26/16 05/26/16 05/26/16 05/26/16 15:05 15:14 15:20 20:15 White Blood Count 4.0 TH/MM3 Red Blood Count 3.92 MIL/MM3 Hemoglobin 11.3 GM/DL Hematocrit 33.3 % Mean Corpuscular Volume 85.0 FL Mean Corpuscular Hemoglobin 28.9 PG Mean Corpuscular Hemoglobin 34.0 % Concent Red Cell Distribution Width 13.4 % Platelet Count 161 TH/MM3 Mean Platelet Volume 9.5 FL Neutrophils (%) (Auto) 61.7 % Lymphocytes (%) (Auto) 26.0 % Monocytes (%) (Auto) 8.8 % Eosinophils (%) (Auto) 2.6 % Basophils (%) (Auto) 0.9 % Neutrophils # (Auto) 2.5 TH/MM3 Lymphocytes # (Auto) 1.0 TH/MM3 Monocytes # (Auto) 0.3 TH/MM3 Eosinophils # (Auto) 0.1 TH/MM3 Basophils # (Auto) 0.0 TH/MM3 CBC Comment DIFF FINAL Differential Comment Prothrombin Time 10.8 SEC Prothromb Time International 1.0 RATIO Ratio Activated Partial 20.2 SEC Thromboplast Time Sodium Level 138 MEQ/L Potassium Level 3.4 MEQ/L Chloride Level 105 MEQ/L Carbon Dioxide Level 23.7 MEQ/L Anion Gap 9 MEQ/L Blood Urea Nitrogen 14 MG/DL Creatinine 0.80 MG/DL Estimat Glomerular Filtration 72 ML/MIN Rate Random Glucose 218 MG/DL Lactic Acid Level 2.8 mmol/L Calcium Level 7.8 MG/DL Total Bilirubin 0.4 MG/DL Aspartate Amino Transf 11 U/L (AST/SGOT) Alanine Aminotransferase 19 U/L (ALT/SGPT) Alkaline Phosphatase 56 U/L Troponin I LESS THAN 0.02 NG/ML Total Protein 5.6 GM/DL Albumin 2.8 GM/DL Salicylates Level LESS THAN 1.7 MG/DL Acetaminophen Level 14.9 MCG/ML Ethyl Alcohol Level LESS THAN 3 MG/DL Blood Gas Puncture Site RT RADIAL Blood Gas Patient Temperature 98.6 Blood Gas HCO3 23 mmol/L Blood Gas Base Excess -1.9 mmol/L Blood Gas Oxygen Saturation 91 % Arterial Blood pH 7.31 Arterial Blood Partial 47 mmHg Pressure CO2 Arterial Blood Partial 73 mmHG Pressure O2 Arterial Blood Oxygen Content 15.1 Vol % Arterial Blood 2.0 % Carboxyhemoglobin Arterial Blood Methemoglobin 1.8 % Blood Gas Hemoglobin 11.7 G/DL Oxygen Delivery Device VENTILATOR Blood Gas Ventilator Setting [facility]/14/500/+5/IT1.0 Blood Gas Inspired Oxygen 100 % Urine Color YELLOW Urine Turbidity CLEAR Urine pH 5.5 Urine Specific [place] GREATER THAN 1.050 Urine Protein TRACE mg/dL Urine Glucose (UA) 1000 mg/dL Urine Ketones NEG mg/dL Urine Occult Blood NEG Urine Nitrite NEG Urine Bilirubin NEG Urine Urobilinogen LESS THAN 2.0 MG/DL Urine Leukocyte Esterase NEG Urine RBC 1 /hpf Urine WBC 2 /hpf Urine Squamous Epithelial <1 /hpf Cells Urine Mucus FEW /lpf Microscopic Urinalysis Comment CATH-CULT NOT IND Urine Opiates Screen POS Urine Barbiturates Screen NEG Urine Amphetamines Screen NEG Urine Benzodiazepines Screen POS Urine Cocaine Screen NEG Urine Cannabinoids Screen NEG Phosphorus Level 1.8 MG/DL Ammonia 17 MCMOL/L Total Creatine Kinase 113 U/L Vitamin B12 Level 561 PG/ML Thyroid Stimulating Hormone 1.290 uIU/ML 3rd Gen Test 05/26/16 05/26/16 05/27/16 05/27/16 20:30 21:34 01:00 02:15 Lactic Acid Level 3.5 mmol/L 4.1 mmol/L Troponin I LESS THAN 0.02 NG/ML Nasal Screen MRSA (PCR) NEGATIVE White Blood Count 9.4 TH/MM3 Red Blood Count 4.54 MIL/MM3 Hemoglobin 13.2 GM/DL Hematocrit 39.2 % Mean Corpuscular Volume 86.5 FL Mean Corpuscular Hemoglobin 29.1 PG Mean Corpuscular Hemoglobin 33.6 % Concent Red Cell Distribution Width 13.5 % Platelet Count 169 TH/MM3 Mean Platelet Volume 9.2 FL Test 05/27/16 05:40 White Blood Count 9.4 TH/MM3 Red Blood Count 4.48 MIL/MM3 Hemoglobin 12.8 GM/DL Hematocrit 38.9 % Mean Corpuscular Volume 86.9 FL Mean Corpuscular Hemoglobin 28.5 PG Mean Corpuscular Hemoglobin 32.9 % Concent Red Cell Distribution Width 13.4 % Platelet Count 151 TH/MM3 Mean Platelet Volume 9.5 FL Neutrophils (%) (Auto) 75.9 % Lymphocytes (%) (Auto) 10.5 % Monocytes (%) (Auto) 11.8 % Eosinophils (%) (Auto) 1.4 % Basophils (%) (Auto) 0.4 % Neutrophils # (Auto) 7.1 TH/MM3 Lymphocytes # (Auto) 1.0 TH/MM3 Monocytes # (Auto) 1.1 TH/MM3 Eosinophils # (Auto) 0.1 TH/MM3 Basophils # (Auto) 0.0 TH/MM3 CBC Comment DIFF FINAL Differential Comment Sodium Level 145 MEQ/L Potassium Level 3.5 MEQ/L Chloride Level 107 MEQ/L Carbon Dioxide Level 28.2 MEQ/L Anion Gap 10 MEQ/L Blood Urea Nitrogen 10 MG/DL Creatinine 0.65 MG/DL Estimat Glomerular Filtration 91 ML/MIN Rate Random Glucose 91 MG/DL Calcium Level 8.1 MG/DL Phosphorus Level 3.2 MG/DL Troponin I LESS THAN 0.02 NG/ML Imaging Last Impressions Head CT 05/26/161413 Signed Impressions: Service Date/Time: Thursday, May 26, 2016 14:22 - CONCLUSION: No acute intracranial disease. Amanuel Hill MD Chest X-Ray 05/26/16 1414 Signed Impressions: Service Date/Time: Thursday, May 26, 2016 15:07 - CONCLUSION: 1. Endotracheal tube in satisfactory position. Patchy left basilar airspace disease. Tomer Tan MD Neck CTA 05/26/16 0000 Signed Impressions: Service Date/Time: Thursday, May 26, 2016 14:43 - CONCLUSION: 1. CTA carotids within normal limits for age. Patient intubated. Multiple small thyroid nodules similar to prior chest CT from 2011. Tomer Tan MD Head/Neck CTA with Brain Perfusion 05/26/16 0000 Signed Impressions: Service Date/Time: Thursday, May 26, 2016 14:43 - CONCLUSION: Normal examination. Tomer Tan MD Head CTA 05/26/16 0000 Signed Impressions: Service Date/Time: Thursday, May 26, 2016 14:43 - CONCLUSION: Normal examination for a patient of this age. Tomer Tan MD Objective Remarks GENERAL: Very thin female with temporal wasting, orotracheally intubated on sedation. SKIN: Warm and dry. There is an ecchymosis overlying her left upper arm without deformity. HEAD: Normocephalic. Atraumatic EYES: Pupils equal and round, 6 mm reactive to 4 mm bilaterally, sluggish. No scleral icterus. No injection or drainage. ENT: No nasal bleeding or discharge. Mucous membranes pink and moist. NECK: Trachea midline. No JVD. No meningismus CARDIOVASCULAR: Regular rate and rhythm, sinus rhythm on the monitor.. No murmurs rubs or gallops. RESPIRATORY: On mechanical ventilation, breathing comfortably without accessory muscle use. Lungs clear to auscultation bilaterally GASTROINTESTINAL: Abdomen soft, non-tender, nondistended. Bowel sounds active. MUSCULOSKELETAL: Extremities without clubbing, cyanosis, . RUE edematous and warm to touch. NEUROLOGICAL: Sedation held. Resists attempts at eye opening initially, later opened eyes spontaneously, made eye contact and tracked bilaterally. Follows commands by squeezing hands bilaterally and moving feet bilaterally. No response to Babinski. A/P Problem List: (1) GERD (gastroesophageal reflux disease) ICD Code: K21.9 Status: Chronic (2) Esophagitis ICD Code: K20.9 Status: Chronic (3) Esophageal stricture ICD Code: K22.2 Status: Chronic (4) Lactic acidemia ICD Code: E87.2 Status: Acute (5) Acute encephalopathy ICD Code: G93.40 Status: Acute (6) Chronic pain ICD Code: G89.29 Status: Chronic (7) Glaucoma ICD Code: H40.9 Status: Chronic (8) Hypokalemia ICD Code: E87.6 Status: Acute (9) Acute respiratory failure ICD Code: J96.00 Status: Acute (10) Altered mental status ICD Code: R41.82 Status: Acute (11) Hypoglycemia ICD Code: E16.2 Status: Acute Assessment and Plan NEURO: Acute encephalopathy ? Seizure CT brain 05/26/16no acute abnormality CTA brain and neck with perfusion 05/26/16normal For MRI brain today Follow-up EEG results Ammonia level: 17 On Propofol for sedation. Target RASS -2. Daily sedation vacation Neuro: Dr. Perez RESP: Acute respiratory failure Nonsmoker PRVC tidal volume 500/rate 14/P5/inspiratory time 1/FiO2 40% Continue with vent support keep sat >92% Ventilator bundle. Bronchodilators. Start SBT daily as kacie. CV: Monitor HR and BP keep MAP>65mmHg. Serial Lactic acid monitoring She had a negative cardiac stress test in 2007 GI: GERD ? GI beled History of esophageal stricture status post dilatation Diverticulosis Nothing by mouth. OGT tube to low intermittent wall suction. GI eval. Monitor H/H, continue with Protonix drip for now. Colace 100 bid for bowel regimen. FEN/RENAL: Lactic acidemia Monitor renal function, I/O's, electrolytes replacement per protocol D5 1/2 NACl with 20 MEQ KCL/L @ 125/hr. CPK is normal ID: Acute aspiration. No leukocytosis. Chest x-ray with left lower lobe opacity. UA without evidence for infection. Received Zosyn in the ED. Continue Zosyn 3.375 IV every 6 hours (probable aspiration pneumonia, community acquired) Follow-up blood cultures HEME: Monitor CBC. Coags normal. ENDO: SSI with accuchecks PROPH: SCDs, Lovenox 40 mg subcutaneous daily for DVT prophylaxis. GI prophylaxis- on Protonix drip Check Doppler US RUE ACCESS: Peripheral IV providing adequate access at this time CCT 30 mins Problem Qualifiers (1) Altered mental status: Qualified Code: R40.2432 - [place] coma scale total score 3-8, at arrival to emergency department Ivan Marti MD May 27, 2016 08:46
[2016-05-27] MEDS ORDERED: DOCUSATE SODIUM 100 MG CAP TUBE SCH (09:00)
[2016-05-27] MEDS ORDERED: GADODIAMIDE PF 287 MG/ML 5 ML VIAL (for RAD MRI) IV ONE (10:37)
--- NOTE | 2016-05-27 11:30 | RADRPT ---
EXAM DATE/TIME: 05/27/2016 10:18 [facility] COMPARISON: No previous studies available for comparison. INDICATIONS: Altered mental status. Found down. CONTRAST: 14 cc Omniscan (gadodiamide) IV MEDICAL HISTORY: None. SURGICAL HISTORY: Knee surgery, cataract, esophageal dilatation ENCOUNTER: Subsequent ACUITY: 2 day PAIN SCORE: Nonresponsive. LOCATION: Cranial TECHNIQUE: Multiplanar, multisequence MRI of the brain was performed both prior to and following the administrat ion of paramagnetic contrast. FINDINGS: There is no restricted diffusion evident. There is scattered areas of high signal intensity in the p eriventricular white matter in a nonspecific fashion. There is no parenchymal hemorrhage, acute infa rction or mass lesion. Lacunar infarct is seen in basal ganglia on the left. There is no abnormal contrast enhancement. Portion of orbits and paranasal sinuses visualized unremarkable. CONCLUSION: 1. There is no evidence for acute infarction or ischemic changes. 2. Lacunar infarct on the right with some periventricular white matter changes. 3. There is no parenchymal hemorrhage. Julio Calvo MD FACR on May 27, 2016 at 11:07 Board Certified Radiologist. This report was verified electronically.
--- NOTE | 2016-05-27 11:38 | EKG ---
Date Performed: 05/27/2016 Time Performed: 05:53:38 PTAGE: 65 years EKG: Sinus rhythm . Normal ECG PREVIOUS TRACING : 05/26/2016 22.19 DOCTOR: John Dias Interpretating Date/Time 05/27/2016 11:36:13
--- NOTE | 2016-05-27 11:44 | EKG ---
Date Performed: 05/26/2016 Time Performed: 22:19:22 PTAGE: 65 years EKG: Sinus rhythm NORMAL ECG PREVIOUS TRACING : 05/26/2016 15.27 DOCTOR: John Dias Interpretating Date/Time 05/27/2016 11:42:28
--- NOTE | 2016-05-27 11:50 | EKG ---
Date Performed: 05/26/2016 Time Performed: 15:27:56 PTAGE: 65 years EKG: SINUS BRADYCARDIA BORDERLINE ECG NO PREVIOUS TRACING DOCTOR: John Dias Interpretating Date/Time 05/27/2016 11:46:14
[2016-05-27 12:46] LABS: HEMATOCRIT 37.4 % (35.0-46.0); REVIEW FLAG FINAL
[2016-05-27] MEDS: INSULIN NovoLIN REGULAR SUPPLEMENTAL SCALE SQ SCH ×3 (12:56→21:00)
--- NOTE | 2016-05-27 15:11 | RADRPT ---
EXAM DATE/TIME: 05/27/2016 14:26 [facility] COMPARISON: No previous studies available for comparison. INDICATIONS : Edema. MEDICAL HISTORY : Diverticulitis. Gastroesophageal reflux disease. Arthritis. Seizures. Migraines. Asthma. Hx of pleuri sy. Esophageal strictures. Right knee arthoscopy. Left shoulder surgery. Left foot surgery. SURGICAL HISTORY : Bilateral lens implants. Laser repair of right retina. Lower jaw osteotomy. ENCOUNTER: Initial ACUITY: 1 day PAIN SCORE: Non-responsive LOCATION: Right arm. FINDINGS: There is spontaneous flow documented in the brachial, basilic, cephalic, axillary, and subclavian vei ns. The vessels are compressible and augmentation response is documented. No filling defects are se en. The flow is phasic with respiration. Direction of flow in the jugular vein is caudal. CONCLUSION: Negative for deep venous thrombosis. Julio Calvo MD FACR on May 27, 2016 at 15:09 Board Certified Radiologist. This report was verified electronically.
[2016-05-27] MEDS: RESP: ALBUTEROL 2.5 MG/IPRATROPIUM 0.5 MG NEB (SCH) NEB ×2 (15:26→20:00)
[2016-05-27] MEDS: PANTOPRAZOLE SODIUM 40 MG VIAL IV PUSH SCH (17:13)
[2016-05-27 18:53] LABS: REVIEW FLAG FINAL
--- NOTE | 2016-05-27 20:16 | MB ---
cc: ELI JACKSON DATE OF CONSULTATION 05/27/2016 DATE OF 1950 REASON FOR CONSULTATION Possible GI bleed. HISTORY OF PRESENT ILLNESS Ms. Cortes is a 65-year-old lady with a past medical history significant for gastroesophageal reflux disease, benign esophageal stricture status post multiple dilations the last one being on December [address] Oconnor, cataracts, diverticulosis, osteopenia who was brought in to the hospital after she was found down at her house, unresponsive, by a friend. She reports the last time she saw her before this was on FridayMay 25 and she was in her usual state of health. On arrival she was found to be unresponsive to noxious stimuli and was intubated for airway protection. CT brain done on arrival was negative as well as MRI repeated today. Drug screen was negative as well only positive for benzodiazepines and opiates. She is pending neurological workup and EEG. It was noted some dark colored material, from the NG tube on suction concerning for possible GI bleed. There is no report about any melena or lower GI bleed noted. Her hemoglobin has remained stable throughout her short hospitalization and she is currently hemodynamically stable. GI was consulted for possible GI bleed. PAST MEDICAL HISTORY Significant for: 1. Gastroesophageal reflux disease. 2. Esophageal stricture. 3. Cervical radiculopathy. 4. Diverticulosis. 5. Osteopenia. PAST SURGICAL HISTORY 1. Left ankle tendon surgery. 2. Right knee surgery. 3. Multiple esophageal stricture dilations. 4. Jaw surgery. 5. Cataract removal. MEDICATIONS At home she takes: 1. Paroxetine 30 milligrams daily. 2. Sertraline 05 milligrams p.o. daily. 3. Trazodone 100 milligrams p.o. at bedtime. 4. Ambien 10 milligrams p.o. bedtime. 5. Diazepam 10 milligrams p.o. daily. 6. Tizanidine 2 milligrams p.o. q.6h. 7. Tylenol with codeine q.4h as needed. 8. [place] 7.5 milligrams q.6h as needed. 9. Calcium 500 milligrams daily. 10. Omeprazole 20 milligrams p.o. daily. 11. Vitamin D and vitamin K one tablet p.o. at bedtime. FAMILY HISTORY Father has history of coronary artery disease. Mother has diabetes. SOCIAL HISTORY Denies any history of tobacco, alcohol or illicit drug use. REVIEW OF SYSTEMS Unable to perform due to clinical condition. PHYSICAL EXAMINATION VITAL SIGNS: Temperature is 99.7, heart rate is 83. Blood pressure 126/65. GENERAL: She is currently intubated, she has some spontaneous movement and looks comfortable. HEENT: Normocephalic, atraumatic. Extraocular muscles intact. Pupils equal, round, reactive to light and accommodation. Nonicteric sclerae. Nasogastric tube with some dark yellow / brown material, no gross bleeding detected. NECK: Supple. No JVD. No lymphadenopathy. CARDIOVASCULAR: Regular rhythm and rate. S1-S2. No murmurs, rubs, or gallops. LUNGS: Clear to auscultation bilaterally. No wheezes or rhonchi. ABDOMEN: Soft and nontender. Nondistended. No hepatosplenomegaly appreciated. EXTREMITIES: No cyanosis or edema. Pulses 2+ bilaterally. NEUROLOGICAL: She is currently intubated, having some spontaneous movement, does not follow commands. LABORATORY DATA White blood cell count is 9.4, hemoglobin is 13, hematocrit 37.4, platelet count 151. INR is 1.0. Sodium was 145, potassium 3.5, chloride 107, bicarbonate 28.2, creatinine 0.65, BUN of 10. IMAGING Brain MRI done on May 27, 2016 showed no areas for acute infarct or ischemic changes. A lacunar infarct on the right with some periventricular white matter changes. No parenchymal hemorrhage. Head CTA showed normal examination. ASSESSMENT/PLAN Ms. Cortes is a 65-year-old lady with a history of gastroesophageal reflux, benign esophageal stricture requiring multiple esophageal dilations, cataracts, osteoporosis, diverticulosis brought into the hospital after found unresponsive by a friend at home. Concerns for possible stroke, however, CT and MRI have been negative for any acute cerebrovascular accident. Pending neurological workup and EEG. Noted some dark colored aspirate from the NG tube concerning for possible GI bleed. Hemodynamically stable, hemoglobin has remained stable in the past 24 hours. There has been no melena or lower GI bleed reported. PLAN 1. Possible GI bleed. Concerns due to dark color aspirate from nasogastric tube. At time of examination there was some dark brown / yellow material possible bilious. There might be some oozing from the nasogastric coming out? We will continue to monitor, continue trending H&H daily. We can switch PPI drip to Protonix 40 mg IV q.12h. Keep n.p.o. for now. Please let us know if the patient's status changes and she becomes hemodynamically stable or there is gross bleeding reported. We will continue to follow along with you. At this point we do not recommend any endoscopic intervention to be done unless the patient becomes hemodynamically unstable. In that case, it will need to be done emergently. 2. All other medical problems to be addressed by primary team. We would like to thank Dr. Marti for this consultation and letting us participate in the care of Ms. Cortes. We will follow along with you. Please call us with any concerns or questions. MD JOHN Alba/KK /4:20 PM /7:35 PM
--- NOTE | 2016-05-27 20:26 | MG ---
cc: ARNEL ABEL Lab No: [id number] Date: 05/27/16 Age: 65 Sex: F Race: A 65-year-old woman, hyperventilation not performed. On Diprivan. Headaches, migraines, anxiety. Insulin, Lovenox. 9 Hz 60 microvolt symmetric posterior rhythm is seen. Diffuse beta rhythms are also noted. Photic stimulation was performed without significant posterior driving. No hemisphere asymmetries are noted. No epileptiform or seizure activity is seen. IMPRESSION A normal awake EEG. No evidence for a focal or diffuse abnormality. MD MAXIMILIANO Ferguson/NOEL /6:54 PM /8:21 PM
--- NOTE | 2016-05-27 22:43 | HHI.PR ---
Review/Management Diagnosis Encephalopathy No clear etiology ? metabolic/infectious No history of seizures. Possible posterior circulation stroke? vertebrobasilar ischemia Plan - Neurological checks q. one hourly. -DVT prophylaxis SCDs. - GI prophylaxis. - Supportive treatment Diagnosis/Plan: Subjective Subjective Comments Patient still intubated, as per nurse, a trial of CPAP and extubation, she was non purposefully moving but with " head nodding" to certain verbal commands, but had to be reintubated since she could not tolerate extubation Imaging of the brain and neck was reported as unremarkable EEG with no evidence of an ictal activity MRI brain revealed a remote right lacune with periventricular white matter changes Reported coffee ground fluid through NGT Active Medications Current Medications Medications (Trade) Dose Ordered Sig/Fran Route Start Time Stop Time Status Last Admin Potassium Chloride 100 ml @ 50 mls/hr Q2H PRN IV 05/26/16 18:45 (KCl 20 Meq Premix Inj) 100 ml @ 50 mls/hr Q2H PRN IV 05/26/16 18:45 Potassium Chloride 40 meq 40 meq UNSCH PRN PO/TUBE 05/26/16 18:45 Potassium Chloride 100 ml @ 25 mls/hr UNSCH PRN IV 05/26/16 18:45 Potassium Chloride 100 ml @ 50 mls/hr Q2H PRN IV 05/26/16 18:45 (Magnesium Sulfate Inj/NS Inj) 100 ml @ 50 mls/hr UNSCH PRN IV 05/26/16 18:45 Magnesium Oxide 800 mg 800 mg UNSCH PRN PO 05/26/16 18:45 (Magnesium Sulfate Inj/NS Inj) 100 ml @ 50 mls/hr UNSCH PRN IV 05/26/16 18:45 Potassium Phosphate 2000 mg 2,000 mg Q4H PRN PO 05/26/16 18:45 (Sodium Phosphate Inj/NS 250 ml Inj) 250 ml @ 42 mls/hr UNSCH PRN IV 05/26/16 18:45 (KCl 40 Meq/30 ml Liq) 40 meq UNSCH PRN PO/TUBE 05/26/16 18:45 Potassium Phosphate 2000 mg 2,000 mg UNSCH PRN PO/TUBE 05/26/16 18:45 (Potassium Phosphate Inj/NS 250 ml Inj) 260 ml @ 42 mls/hr UNSCH PRN IV 05/26/16 18:45 (Ativan Inj) 1 mg Q5M PRN IV PUSH 05/26/16 21:30 (NS Flush) 2 ml UNSCH PRN IV FLUSH 05/26/16 22:00 (NS Flush) 2 ml BID IV FLUSH 05/27/16 09:00 05/27/16 08:22 (Tylenol) 650 mg Q6H PRN PO 05/26/16 22:00 (Zofran Inj) 4 mg Q6H PRN IV 05/26/16 22:00 (Lovenox Inj) 40 mg Q24H SQ 05/26/16 22:00 Hold 05/26/16 23:32 Miscellaneous Information 1 Q361D XX 05/26/16 22:00 (Chlorhexidine 2% Cloth) 3 pack Taper DAILY@04 TOP 05/27/16 04:00 05/23/17 03:59 05/27/16 04:00 Chlorhexidine Gluconate 3 pack 3 pack UNSCH PRN TOP 05/26/16 22:00 (Diprivan 1000 Mg/100ml Inj) 100 ml @ 0 mls/hr TITRATE IV 05/26/16 22:00 05/27/16 20:51 Chlorhexidine Gluconate 15 ml 15 ml BID@08,20 MT 05/27/16 08:00 05/27/16 20:00 Piperacillin Sod/ Tazobactam Sod 50 ml @ 100 mls/hr Q6H IV 05/27/16 00:01 05/27/16 17:16 (D5-1/2 NS + KCl 20 Meq Inj) 1,000 ml @ 125 mls/hr Q8H IV 05/27/16 01:30 05/27/16 08:25 (D50w (Vial) Inj) 25 ml UNSCH PRN IV PUSH 05/27/16 08:45 (Glucagon Inj) 1 mg UNSCH PRN OTHER 05/27/16 08:45 (NovoLIN R SUPPLEMENTAL SCALE) 1 Q4H SQ 05/27/16 09:00 (Protonix Inj) 40 mg Q12H IV PUSH 05/27/16 17:00 05/27/16 17:13 (Colace Liq) 100 mg BID TUBE 05/27/16 21:00 Allergies Allergies Coded Allergies Corticosteroids (Verified Allergy, Severe, Anaphylaxis, 05/26/16) Exam I&O / VS 05/26/16 05/26/1605/27/17 15:00 23:00 07:00 Intake Total 2070 ml Output Total 1125 ml Balance 945 ml IV Total 2070 ml Output Urine Total 675 ml Gastric Drainage Total 450 ml Vital Signs Date Time Temp Pulse Resp B/P Pulse Ox O2 Delivery O2 Flow Rate FiO2 05/27/16 22:08 100 35 05/27/16 21:00 100.0 81 20 124/62 100 05/27/16 20:01 100 35 05/27/16 20:00 100.2 81 15 124/65 100 05/27/16 20:00 81 05/27/16 18:00 81 05/27/16 16:07 100 35 05/27/16 16:00 78 05/27/16 16:00 99.6 78 14 151/56 100 05/27/16 14:00 83 05/27/16 13:32 35 05/27/16 13:32 100 35 05/27/16 12:00 70 05/27/16 12:00 99.7 70 14 126/65 100 05/27/16 10:00 84 05/27/16 10:00 99 100 05/27/16 08:00 99.3 74 20 127/61 100 05/27/16 08:00 74 05/27/16 07:41 100 35 05/27/16 06:00 82 05/27/16 04:09 100 35 05/27/16 04:00 78 05/27/16 04:00 98.5 78 15 131/63 100 05/27/16 02:00 84 05/27/16 01:03 98.6 75 16 127/67 91 05/27/16 01:00 75 05/27/16 00:57 98 35 05/27/16 00:50 99 35 05/27/16 00:45 100 100 05/26/16 23:31 63 14 149/78 100 Ventilator 05/26/16 22:58 100 35 Exam Comments GENERAL: Vented sedated. HEENT: Pupils are equal, reacting to light, 2-3 mm. Head atraumatic, normocephalic. No gazing. NECK: Trachea in the midline. CARDIOVASCULAR: Regular rate and rhythm. Bradycardia, 40s. LUNGS: Clear to auscultation. No wheezes. NEUROLOGICAL: Vented, sedated. Pupils 2-3 mm equally reacting to light. No gazing. Plantars bilateral upgoing. There is some fullness of the right side of the neck. Objective Radiology Results Last 72 hours Impressions Upper Extremity Ultrasound 05/27/16 Signed Impressions: Service Date/Time: Friday, May 27, 2016 14:26 - CONCLUSION: Negative for deep venous thrombosis. Julio Calvo MD FACR Brain MRI 05/27/16 Signed Impressions: Service Date/Time: Friday, May 27, 2016 10:18 - CONCLUSION: 1. There is no evidence for acute infarction or ischemic changes. 2. Lacunar infarct on the right with some periventricular white matter changes. 3. There is no parenchymal hemorrhage. Julio Calvo MD FACR Head CT 05/26/161413 Signed Impressions: Service Date/Time: Thursday, May 26, 2016 14:22 - CONCLUSION: No acute intracranial disease. Amanuel Hill MD Chest X-Ray 05/26/161413 Signed Impressions: Service Date/Time: Thursday, May 26, 2016 15:07 - CONCLUSION: 1. Endotracheal tube in satisfactory position. Patchy left basilar airspace disease. Tomer Tan MD Neck CTA 05/26/16 Signed Impressions: Service Date/Time: Thursday, May 26, 2016 14:43 - CONCLUSION: 1. CTA carotids within normal limits for age. Patient intubated. Multiple small thyroid nodules similar to prior chest CT from 2011. Tomer Tan MD Head/Neck CTA with Brain Perfusion 05/26/16 Signed Impressions: Service Date/Time: Thursday, May 26, 2016 14:43 - CONCLUSION: Normal examination. Tomer Tan MD Head CTA 05/26/16 Signed Impressions: Service Date/Time: Thursday, May 26, 2016 14:43 - CONCLUSION: Normal examination for a patient of this age. Tomer Tan MD Micro and Labs Laboratory Tests Test 05/27/16 05/27/16 05/27/16 05/27/16 01:00 02:15 05:40 12:34 Nasal Screen MRSA (PCR) NEGATIVE White Blood Count 9.4 9.4 Red Blood Count 4.54 4.48 Hemoglobin 13.2 12.8 13.0 Hematocrit 39.2 38.9 37.4 Mean Corpuscular Volume 86.5 86.9 Mean Corpuscular Hemoglobin 29.1 28.5 Mean Corpuscular Hemoglobin 33.6 32.9 Concent Red Cell Distribution Width 13.5 13.4 Platelet Count 169 151 Mean Platelet Volume 9.2 9.5 Neutrophils (%) (Auto) 75.9 Lymphocytes (%) (Auto) 10.5 Monocytes (%) (Auto) 11.8 Eosinophils (%) (Auto) 1.4 Basophils (%) (Auto) 0.4 Neutrophils # (Auto) 7.1 Lymphocytes # (Auto) 1.0 Monocytes # (Auto) 1.1 Eosinophils # (Auto) 0.1 Basophils # (Auto) 0.0 CBC Comment DIFF FINAL Differential Comment Sodium Level 145 Potassium Level 3.5 Chloride Level 107 Carbon Dioxide Level 28.2 Anion Gap 10 Blood Urea Nitrogen 10 Creatinine 0.65 Estimat Glomerular Filtration 91 Rate Random Glucose 91 Calcium Level 8.1 Phosphorus Level 3.2 Troponin I LESS THAN 0.02 Lactic Acid Level 3.7 Test 05/27/16 18:25 Hemoglobin 12.4 Hematocrit 37.0 Date/Time Procedure Status Source Growth 05/26/16 15:05 Aerobic Blood Culture - Preliminary Resulted Blood Peripheral NO GROWTH IN 1 DAY 05/26/16 15:05 Anaerobic Blood Culture - Preliminary Resulted Blood Peripheral NO GROWTH IN 1 DAY Eric Perez MD May 27, 2016 22:43
[2016-05-27] MEDS: DOCUSATE SODIUM 100 MG/10 ML UDC TUBE SCH (23:01)
[2016-05-28] VITALS (19 sets, daily range): BP systolic 126–162; BP diastolic 61–84; PULSE 77–124; RESP 14–28; TEMP 98.4–99.3; O2SAT 94–100
[2016-05-28 00:29] LABS: HEMATOCRIT 37.2 % (35.0-46.0); REVIEW FLAG FINAL
[2016-05-28] MEDS: D5-1/2 NS + KCL 20 MEQ INJ 1,000 ML IV SCH ×3 (00:40→09:55)
[2016-05-28] MEDS: PIPERACIL-TAZO 3.375 GM PREMIX 50 ML IV SCH ×3 (00:41→15:48)
[2016-05-28] MEDS: INSULIN NovoLIN REGULAR SUPPLEMENTAL SCALE SQ SCH ×5 (01:00→21:00)
[2016-05-28] MEDS: PROPOFOL 1000 MG/100 ML INJ 100 ML IV SCH ×2 (02:25→06:13)
[2016-05-28] MEDS: RESP: ALBUTEROL 2.5 MG/IPRATROPIUM 0.5 MG NEB (SCH) NEB ×4 (03:33→21:18)
[2016-05-28] MEDS: CHLORHEXIDINE GLUCONATE 2 % 1 PACK (2 CLOTHS) TOP SCH (04:00)
[2016-05-28] MEDS: PANTOPRAZOLE SODIUM 40 MG VIAL IV PUSH SCH ×2 (06:13→15:49)
[2016-05-28 07:25] LABS: AUTOMATED NEUTROPHIL # 5.5 TH/MM3 (1.8-7.7); BASOPHIL % 0.6 % (0.0-2.0); EOSINOPHIL % 0.7 % (0.0-4.0); HEMATOCRIT 34.7 % (35.0-46.0); HEMO FLAGS DIFF FINAL; LYMPH % 11.7 % (9.0-44.0); LYMPHOCYTE # 0.8 TH/MM3 (1.0-4.8); MEAN CELL VOLUME 85.8 FL (80.0-100.0); MEAN CORPUSCULAR HGB CONC 33.8 % (32.0-36.0); MONO % 9.2 % (0.0-8.0); NEUT % 77.8 % (16.0-70.0); PLATELET COUNT 165 TH/MM3 (150-450); RED BLOOD COUNT 4.05 MIL/MM3 (4.00-5.30); RED CELL DISTRIBUTION WIDTH 13.4 % (11.6-17.2); WHITE BLOOD COUNT 7.1 TH/MM3 (4.0-11.0)
[2016-05-28 07:42] LABS: BICARBONATE 26.6 MEQ/L (21.0-32.0)
--- NOTE | 2016-05-28 08:04 | HHI.CCPN ---
Subjective Remarks/Hospital Course 65-year-old female with past medical history of chronic neck pain secondary to cervical radiculopathy, GERD, esophageal stricture s/p dilations. Her friend states she was in her usual state of health yesterday and had been out shopping with another neighbor. Today, she was not answering her phone and her neighbor saw her laying on the floor, not responsive to knocks on the door. She called 911 and patient was obtunded upon [facility] arrival. Upon arrival to the ED she was noted to be unresponsive to noxious stimuli, occasional flicker of left hand, disconjugate gaze. She was intubated for airway protection. Glucose 53. CT brain was negative. Alcohol, Tylenol, salicylate levels are negative. Urine drug screen is positive for benzodiazepines and opiates. She is on multimodal pain therapy including benzos and opiates for her neck pain. There was no obvious witnessed seizure activity. She is afebrile with no leukocytosis. She has been seen by Dr. Perez with neurology. CTA brain and neck was obtained due to concern for posterior circulation stroke. These were negative. EEG is pending. 05/27 Patient is sedated with Diprivan and intubated. For MRI brain today. Patient had approx 300ml coffee ground/bloody fluid from OGT overnight placed on Protonix drip. H/H stable. 05/28 No acute events overnight. Sedated with Diprivan and intubated. Afebrile. H/ H stable. Objective Vital Signs Date Time Temp Pulse Resp B/P Pulse Ox O2 Delivery O2 Flow Rate FiO2 05/28/16 06:00 81 05/28/16 04:08 100 35 05/28/16 04:01 98.4 19 140/68 05/26/16 23:31 Ventilator Intake and Output 05/27/16 05/27/16 05/28/16 08:00 16:00 00:00 Intake Total 2070 ml 627 ml Output Total 1125 ml 1100 ml Balance 945 ml -473 ml Result Diagram: 05/28/16 0453 05/28/16 0453 Other Results Laboratory Tests Test 05/27/16 05/27/16 05/27/16 05/28/16 12:34 18:25 23:53 04:53 Hemoglobin 13.0 GM/DL 12.4 GM/DL 12.5 GM/DL 11.7 GM/DL Hematocrit 37.4 % 37.0 % 37.2 % 34.7 % Lactic Acid Level 3.7 mmol/L White Blood Count 7.1 TH/MM3 Red Blood Count 4.05 MIL/MM3 Mean Corpuscular Volume 85.8 FL Mean Corpuscular Hemoglobin 29.0 PG Mean Corpuscular Hemoglobin 33.8 % Concent Red Cell Distribution Width 13.4 % Platelet Count 165 TH/MM3 Mean Platelet Volume 9.5 FL Neutrophils (%) (Auto) 77.8 % Lymphocytes (%) (Auto) 11.7 % Monocytes (%) (Auto) 9.2 % Eosinophils (%) (Auto) 0.7 % Basophils (%) (Auto) 0.6 % Neutrophils # (Auto) 5.5 TH/MM3 Lymphocytes # (Auto) 0.8 TH/MM3 Monocytes # (Auto) 0.7 TH/MM3 Eosinophils # (Auto) 0.0 TH/MM3 Basophils # (Auto) 0.0 TH/MM3 CBC Comment DIFF FINAL Differential Comment Sodium Level 144 MEQ/L Potassium Level 3.0 MEQ/L Chloride Level 109 MEQ/L Carbon Dioxide Level 26.6 MEQ/L Anion Gap 8 MEQ/L Blood Urea Nitrogen 5 MG/DL Creatinine 0.63 MG/DL Estimat Glomerular Filtration 94 ML/MIN Rate Random Glucose 126 MG/DL Calcium Level 7.6 MG/DL Phosphorus Level 1.5 MG/DL Magnesium Level 2.0 MG/DL Imaging Last Impressions Upper Extremity Ultrasound 05/27/16 0000 Signed Impressions: Service Date/Time: Friday, May 27, 2016 14:26 - CONCLUSION: Negative for deep venous thrombosis. Julio Calvo MD FACR Brain MRI 05/27/16 0000 Signed Impressions: Service Date/Time: Friday, May 27, 2016 10:18 - CONCLUSION: 1. There is no evidence for acute infarction or ischemic changes. 2. Lacunar infarct on the right with some periventricular white matter changes. 3. There is no parenchymal hemorrhage. Julio Calvo MD FACR Head CT 05/26/16 1414 Signed Impressions: Service Date/Time: Thursday, May 26, 2016 14:22 - CONCLUSION: No acute intracranial disease. Amanuel Hill MD Chest X-Ray 05/26/161413 Signed Impressions: Service Date/Time: Thursday, May 26, 2016 15:07 - CONCLUSION: 1. Endotracheal tube in satisfactory position. Patchy left basilar airspace disease. Tomer Tan MD Neck CTA 05/26/16 Signed Impressions: Service Date/Time: Thursday, May 26, 2016 14:43 - CONCLUSION: 1. CTA carotids within normal limits for age. Patient intubated. Multiple small thyroid nodules similar to prior chest CT from 2011. Tomer Tan MD Head/Neck CTA with Brain Perfusion 05/26/16 Signed Impressions: Service Date/Time: Thursday, May 26, 2016 14:43 - CONCLUSION: Normal examination. Tomer Tan MD Head CTA 05/26/16 Signed Impressions: Service Date/Time: Thursday, May 26, 2016 14:43 - CONCLUSION: Normal examination for a patient of this age. Tomer Tan MD Objective Remarks GENERAL: Very thin female with temporal wasting, orotracheally intubated on sedation. SKIN: Warm and dry. There is an ecchymosis overlying her left upper arm without deformity. HEAD: Normocephalic. Atraumatic EYES: Pupils equal and round, 6 mm reactive to 4 mm bilaterally, sluggish. No scleral icterus. No injection or drainage. ENT: No nasal bleeding or discharge. Mucous membranes pink and moist. NECK: Trachea midline. No JVD. No meningismus CARDIOVASCULAR: Regular rate and rhythm, sinus rhythm on the monitor.. No murmurs rubs or gallops. RESPIRATORY: On mechanical ventilation, breathing comfortably without accessory muscle use. Lungs clear to auscultation bilaterally GASTROINTESTINAL: Abdomen soft, non-tender, nondistended. Bowel sounds active. MUSCULOSKELETAL: Extremities without clubbing, cyanosis, . RUE edematous and warm to touch. NEUROLOGICAL: Sedation held. Resists attempts at eye opening initially, later opened eyes spontaneously, made eye contact and tracked bilaterally. Follows commands by squeezing hands bilaterally and moving feet bilaterally. No response to Babinski. A/P Problem List: (1) GERD (gastroesophageal reflux disease) ICD Code: K21.9 Status: Chronic (2) Esophagitis ICD Code: K20.9 Status: Chronic (3) Esophageal stricture ICD Code: K22.2 Status: Chronic (4) Lactic acidemia ICD Code: E87.2 Status: Acute (5) Acute encephalopathy ICD Code: G93.40 Status: Acute (6) Chronic pain ICD Code: G89.29 Status: Chronic (7) Glaucoma ICD Code: H40.9 Status: Chronic (8) Hypokalemia ICD Code: E87.6 Status: Acute (9) Acute respiratory failure ICD Code: J96.00 Status: Acute (10) Altered mental status ICD Code: R41.82 Status: Acute (11) Hypoglycemia ICD Code: E16.2 Status: Acute Assessment and Plan NEURO: Acute encephalopathy ? Seizure CT brain 05/26/16no acute abnormality CTA brain and neck with perfusion 05/26/16normal MRI brain: There is no evidence for acute infarction or ischemic changes. Lacunar infarct on the right with some periventricular white matter changes. No parenchymal hemorrhage. EEG within normal. Ammonia level: 17 on 05/26 On Propofol for sedation. Target RASS -2. Daily sedation vacation Neuro: Dr. Perez RESP: Acute respiratory failure Nonsmoker PRVC tidal volume 500/rate 14/P5/inspiratory time 1/FiO2 40% Continue with vent support keep sat >92% Ventilator bundle. Bronchodilators. SBT daily as kacie. CV: Monitor HR and BP keep MAP>65mmHg. Serial Lactic acid monitoring ( trending down) She had a negative cardiac stress test in 2007 GI: GERD ? GI beled History of esophageal stricture status post dilatation Diverticulosis OGT tube to low intermittent wall suction. Continue Protonix 40mg Q12. GI is following- no plan for endoscopy per GI. Start trickle feeds if ok with GI Colace 100 bid for bowel regimen. FEN/RENAL: Lactic acidemia- trending down Monitor renal function, I/O's, electrolytes replacement per protocol. Will need K, Mg replacement today Decrease IVF-D5 1/2 NACl with 20 MEQ KCL/L @ 75/hr. CPK is normal ID: Acute aspiration. No leukocytosis. Chest x-ray with left lower lobe opacity. UA without evidence for infection. Received Zosyn in the ED. Continue Zosyn 3.375 IV every 6 hours (probable aspiration pneumonia, community acquired) Follow-up blood cultures 05/26: NGTD HEME: Monitor CBC. Coags normal. ENDO: SSI with accuchecks PROPH: SCDs, Lovenox 40 mg sq daily for DVT prophylaxis. GI prophylaxis- on Protonix drip Doppler US RUE negative for DVT ACCESS: Peripheral IV providing adequate access at this time CCT 30 mins Problem Qualifiers (1) Altered mental status: Qualified Code: R40.2432 - Corine coma scale total score 3-8, at arrival to emergency department Ivan Marti MD May 28, 2016 08:04
[2016-05-28] MEDS: DOCUSATE SODIUM 100 MG/10 ML UDC TUBE SCH ×2 (09:53→21:00)
[2016-05-28] MEDS: LORazepam 2 MG/ML VIAL IV PUSH PRN (09:54)
[2016-05-28] MEDS: ONDANSETRON HCL 4 MG/2 ML VIAL IV PRN (09:54)
[2016-05-28] MEDS: POTASSIUM PHOSPHATE INJ 30 MMOL in SODIUM CHLOR 0.9% 250 ML INJ 250 ML IV PRN (10:49)
[2016-05-28] MEDS: SODIUM CHLORIDE 0.9% FLUSH 5 ML FLUSH IV FLUSH SCH ×2 (10:50→21:00)
[2016-05-28] MEDS: CHLORHEXIDINE 0.12% (ORAL KIT) 15 ML CUP MT SCH ×2 (10:50→20:00)
[2016-05-28 13:28] LABS: BLOOD GAS BASE EXCESS -0.4 mmol/L (-2-2); BLOOD GAS CARBOXYHEMOGLOBIN 1.1 % (0-4); BLOOD GAS HCO3 22 mmol/L (22-26); BLOOD GAS METHEMOGLOBIN 1.1 % (0-2); BLOOD GAS O2 HGB SATURATION 98 % (90-100); BLOOD GAS OXYGEN CONTENT 16.7 Vol % (12.0-20.0); BLOOD GAS PCO2 24 mmHg (38-42); BLOOD GAS PO2 174 mmHg (61-120); TEMP CORR TO 98.6
[2016-05-28 13:29] LABS: CRITICAL VALUE YES; DRAW SITE RT RADIAL; FIO2 35 %; NUMBER OF ARTERIAL PUNCTURES 1; OXYGEN DEVICE VENTILATOR; ULNAR PULSE PRESENT; VENT SETTINGS CPAP+5/PS10
[2016-05-28 13:30] LABS: STAT NO
--- NOTE | 2016-05-28 13:46 | HHI.GIFU ---
Subjective Remarks Pt more alert today. No gross GI bleeding noted. NG on intermittent suction with dark/bile return. Had one BM as per nursing staff, ryan. Objective Vitals I&O Vital Signs Date Time Temp Pulse Resp B/P Pulse Ox O2 Delivery O2 Flow Rate FiO2 05/28/16 10:00 85 05/28/16 09:09 100 35 05/28/16 09:09 BiPAP/CPAP 35 05/28/16 08:00 35 05/28/16 08:00 88 05/28/16 08:00 98.8 77 19 160/84 94 05/28/16 06:00 81 05/28/16 04:08 100 35 05/28/16 04:01 98.4 80 19 140/68 99 05/28/16 04:00 35 05/28/16 04:00 80 05/28/16 02:00 78 05/28/16 01:07 100 35 05/28/16 00:00 79 05/28/16 00:00 98.8 79 14 128/61 100 05/28/16 00:00 35 05/27/16 23:00 99.0 05/27/16 22:08 100 35 05/27/16 22:00 99.4 05/27/16 22:00 86 05/27/16 21:00 100.0 81 20 124/62 100 05/27/16 20:01 100 35 05/27/16 20:00 100.2 81 15 124/65 100 05/27/16 20:00 35 05/27/16 20:00 81 05/27/16 19:00 35 05/27/16 19:00 35 05/27/16 18:00 81 05/27/16 17:15 35 05/27/16 16:07 100 35 05/27/16 16:00 78 05/27/16 16:00 99.6 78 14 151/56 100 05/27/16 14:00 83 I/O 05/27/16 05/27/16 05/27/16 05/28/16 05/28/16 05/28/16 07:00 15:00 23:00 07:00 15:00 23:00 Intake Total 2070 ml 627 ml 1996 ml Output Total 1125 ml 1100 ml 1875 ml Balance 945 ml -473 ml 121 ml Intake Oral 0 ml IV Total 2070 ml 627 ml 1996 ml Output Urine Total 675 ml 500 ml 1475 ml Gastric Drainage Total 450 ml 600 ml 400 ml # Bowel Movements 0 Laboratory Laboratory Tests Test 05/27/16 05/27/16 05/28/16 05/28/16 18:25 23:53 04:53 08:30 Hemoglobin 12.4 12.5 11.7 Hematocrit 37.0 37.2 34.7 White Blood Count 7.1 Red Blood Count 4.05 Mean Corpuscular Volume 85.8 Mean Corpuscular Hemoglobin 29.0 Mean Corpuscular Hemoglobin 33.8 Concent Red Cell Distribution Width 13.4 Platelet Count 165 Mean Platelet Volume 9.5 Neutrophils (%) (Auto) 77.8 Lymphocytes (%) (Auto) 11.7 Monocytes (%) (Auto) 9.2 Eosinophils (%) (Auto) 0.7 Basophils (%) (Auto) 0.6 Neutrophils # (Auto) 5.5 Lymphocytes # (Auto) 0.8 Monocytes # (Auto) 0.7 Eosinophils # (Auto) 0.0 Basophils # (Auto) 0.0 CBC Comment DIFF FINAL Differential Comment Sodium Level 144 Potassium Level 3.0 Chloride Level 109 Carbon Dioxide Level 26.6 Anion Gap 8 Blood Urea Nitrogen 5 Creatinine 0.63 Estimat Glomerular Filtration 94 Rate Random Glucose 126 Calcium Level 7.6 Phosphorus Level 1.5 Magnesium Level 2.0 Lactic Acid Level 2.6 Test 05/28/16 13:22 Blood Gas Puncture Site RT RADIAL Blood Gas Patient Temperature 98.6 Blood Gas HCO3 22 Blood Gas Base Excess -0.4 Blood Gas Oxygen Saturation 98 Arterial Blood pH 7.56 Arterial Blood Partial 24 Pressure CO2 Arterial Blood Partial 174 Pressure O2 Arterial Blood Oxygen Content 16.7 Arterial Blood 1.1 Carboxyhemoglobin Arterial Blood Methemoglobin 1.1 Blood Gas Hemoglobin 12.0 Oxygen Delivery Device VENTILATOR Blood Gas Ventilator Setting CPAP+5/PS10 Blood Gas Inspired Oxygen 35 Date/Time Procedure Status Source Growth 05/26/16 15:05 Aerobic Blood Culture - Preliminary Resulted Blood Peripheral NO GROWTH IN 2 DAYS 05/26/16 15:05 Anaerobic Blood Culture - Preliminary Resulted Blood Peripheral NO GROWTH IN 2 DAYS Physical Exam HEENT: normocephalic; atraumatic; no jaundice. Pt intubated. ABDOMEN: Soft, nondistended, nontender; no hepatosplenomegaly; bowel sounds are present in all four quadrants. EXTREMITIES: No clubbing, cyanosis, or edema. SKIN: Normal; no rash; no jaundice. . Assessment and Plan Assessment: (1) GERD (gastroesophageal reflux disease) (2) Esophagitis (3) Esophageal stricture Plan 1. ?GI bleeding, GERD, hx of esophageal structures - no evidence of gross GI bleeding at this time, hb remains stable. - no indication for emergent endoscopic intervention - can continue PPI 40mg Po daily - can start tube feeds if needed or diet if extubated 2. All other medical problems to be addressed by primary team GI will sign off. Please call us with any questions. Thank you for this consult. Andrea Hammonds MD May 28, 2016 13:45
--- NOTE | 2016-05-28 17:35 | EKG ---
Date Performed: 05/27/2016 Time Performed: 21:39:50 PTAGE: 65 years EKG: Sinus rhythm NONSPECIFIC ST & T-WAVE ABNORMALITY Since previous tracing, no significant change noted BORDERLINE E CG PREVIOUS TRACING : 05/27/2016 15.52 DOCTOR: Dread Morales Interpretating Date/Time 05/28/2016 17:33:50
--- NOTE | 2016-05-28 17:35 | EKG ---
Date Performed: 05/27/2016 Time Performed: 11:23:47 PTAGE: 65 years EKG: Sinus rhythm MINIMAL ST DEPRESSION Since previous tracing, no significant change noted BORDERLINE ECG PREVIOUS TRACING : 05/27/2016 05.53 DOCTOR: Dread Morales Interpretating Date/Time 05/28/2016 17:33:20
--- NOTE | 2016-05-28 17:35 | EKG ---
Date Performed: 05/27/2016 Time Performed: 15:52:15 PTAGE: 65 years EKG: Sinus rhythm NONSPECIFIC ST & T-WAVE ABNORMALITY Since previous tracing, no significant change noted BORDERLINE E CG PREVIOUS TRACING : 05/27/2016 11.23 DOCTOR: Dread Morales Interpretating Date/Time 05/28/2016 17:33:34
[2016-05-28 21:44] LABS: POTASSIUM 3.1 MEQ/L (3.5-5.1)
[2016-05-28] MEDS: ENOXAPARIN SODIUM 40 MG/0.4 ML SYRINGE SQ SCH (22:07)
[2016-05-29] VITALS (14 sets, daily range): BP systolic 114–140; BP diastolic 64–81; PULSE 77–104; RESP 14–29; TEMP 98.4–99.1; O2SAT 95–98
[2016-05-29] MEDS: PIPERACIL-TAZO 3.375 GM PREMIX 50 ML IV SCH ×4 (00:54→17:01)
[2016-05-29] MEDS: INSULIN NovoLIN REGULAR SUPPLEMENTAL SCALE SQ SCH ×6 (00:54→20:14)
[2016-05-29] MEDS: RESP: ALBUTEROL 2.5 MG/IPRATROPIUM 0.5 MG NEB (SCH) NEB ×4 (02:57→21:23)
[2016-05-29] MEDS: CHLORHEXIDINE GLUCONATE 2 % 1 PACK (2 CLOTHS) TOP SCH (04:00)
[2016-05-29] MEDS: PANTOPRAZOLE SODIUM 40 MG VIAL IV PUSH SCH ×2 (05:18→17:00)
[2016-05-29] MEDS: D5-1/2 NS + KCL 20 MEQ INJ 1,000 ML IV SCH ×3 (05:20→19:28)
[2016-05-29 06:14] LABS: AUTOMATED NEUTROPHIL # 4.7 TH/MM3 (1.8-7.7); BASOPHIL % 0.8 % (0.0-2.0); EOSINOPHIL # 0.1 TH/MM3 (0-0.4); EOSINOPHIL % 2.1 % (0.0-4.0); HEMATOCRIT 30.8 % (35.0-46.0); HEMO FLAGS DIFF FINAL; LYMPHOCYTE # 0.9 TH/MM3 (1.0-4.8); MEAN CELL VOLUME 84.3 FL (80.0-100.0); MEAN CORPUSCULAR HEMOGLOBIN 29.1 PG (27.0-34.0); MEAN CORPUSCULAR HGB CONC 34.6 % (32.0-36.0); MONO % 8.4 % (0.0-8.0); NEUT % 74.7 % (16.0-70.0); PLATELET COUNT 162 TH/MM3 (150-450); RED BLOOD COUNT 3.65 MIL/MM3 (4.00-5.30); RED CELL DISTRIBUTION WIDTH 13.5 % (11.6-17.2); WHITE BLOOD COUNT 6.4 TH/MM3 (4.0-11.0)
[2016-05-29 06:53] LABS: BICARBONATE 26.5 MEQ/L (21.0-32.0); MAGNESIUM 2.1 MG/DL (1.5-2.5)
[2016-05-29 07:07] LABS: CALCIUM-PROTEIN CORRECTED 7.7 MG/DL (8.5-10.1)
[2016-05-29] MEDS: POTASSIUM PHOSPHATE INJ 30 MMOL in SODIUM CHLOR 0.9% 250 ML INJ 250 ML IV PRN ×2 (07:48→22:22)
[2016-05-29] MEDS: CHLORHEXIDINE 0.12% (ORAL KIT) 15 ML CUP MT SCH ×2 (07:48→19:44)
[2016-05-29] MEDS: SODIUM CHLORIDE 0.9% FLUSH 5 ML FLUSH IV FLUSH SCH ×2 (07:49→20:15)
[2016-05-29] MEDS: DOCUSATE SODIUM 100 MG/10 ML UDC TUBE SCH ×2 (07:49→20:15)
--- NOTE | 2016-05-29 10:15 | HHI.CCPN ---
Subjective Remarks/Hospital Course 65-year-old female with past medical history of chronic neck pain secondary to cervical radiculopathy, GERD, esophageal stricture s/p dilations. Her friend states she was in her usual state of health yesterday and had been out shopping with another neighbor. Today, she was not answering her phone and her neighbor saw her laying on the floor, not responsive to knocks on the door. She called 911 and patient was obtunded upon EVAC arrival. Upon arrival to the ED she was noted to be unresponsive to noxious stimuli, occasional flicker of left hand, disconjugate gaze. She was intubated for airway protection. Glucose 53. CT brain was negative. Alcohol, Tylenol, salicylate levels are negative. Urine drug screen is positive for benzodiazepines and opiates. She is on multimodal pain therapy including benzos and opiates for her neck pain. There was no obvious witnessed seizure activity. She is afebrile with no leukocytosis. She has been seen by Dr. Perez with neurology. CTA brain and neck was obtained due to concern for posterior circulation stroke. These were negative. EEG is pending. 05/27 Patient is sedated with Diprivan and intubated. For MRI brain today. Patient had approx 300ml coffee ground/bloody fluid from OGT overnight placed on Protonix drip. H/H stable. 05/28 No acute events overnight. Sedated with Diprivan and intubated. Afebrile. H/ H stable. 05/29 Extubated yesterday, doing well Objective Vital Signs Date Time Temp Pulse Resp B/P Pulse Ox O2 Delivery O2 Flow Rate FiO2 05/29/16 08:33 97 21 05/29/16 08:00 81 05/29/16 08:00 98.6 23 136/73 05/29/16 07:00 Room Air 05/28/16 23:41 3.00 Intake and Output 05/28/16 05/28/16 05/29/16 08:00 16:00 00:00 Intake Total 1996 ml 703 ml 617 ml Output Total 1875 ml 400 ml 500 ml Balance 121 ml 303 ml 117 ml Result Diagram: 05/29/16 0458 05/29/16 0430 Other Results Laboratory Tests Test 05/28/16 13:22 Blood Gas Puncture Site RT RADIAL Blood Gas Patient Temperature 98.6 Blood Gas HCO3 22 mmol/L (22-26) Blood Gas Base Excess -0.4 mmol/L (-2-2) Blood Gas Oxygen Saturation 98 % (90-100) Arterial Blood pH 7.56 (7.380-7.420) Arterial Blood Partial 24 mmHg (38-42) Pressure CO2 Arterial Blood Partial 174 mmHg Pressure O2 (61-120) Arterial Blood Oxygen Content 16.7 Vol % (12.0-20.0) Arterial Blood 1.1 % (0-4) Carboxyhemoglobin Arterial Blood Methemoglobin 1.1 % (0-2) Blood Gas Hemoglobin 12.0 G/DL (12.0-16.0) Oxygen Delivery Device VENTILATOR Blood Gas Ventilator Setting CPAP+5/PS10 Blood Gas Inspired Oxygen 35 % Imaging Last Impressions Upper Extremity Ultrasound 05/27/16 Signed Impressions: Service Date/Time: Friday, May 27, 2016 14:26 - CONCLUSION: Negative for deep venous thrombosis. Julio Calvo MD FACR Brain MRI 05/27/16 Signed Impressions: Service Date/Time: Friday, May 27, 2016 10:18 - CONCLUSION: 1. There is no evidence for acute infarction or ischemic changes. 2. Lacunar infarct on the right with some periventricular white matter changes. 3. There is no parenchymal hemorrhage. Julio Calvo MD FACR Head CT 05/26/161413 Signed Impressions: Service Date/Time: Thursday, May 26, 2016 14:22 - CONCLUSION: No acute intracranial disease. Amanuel Hill MD Chest X-Ray 05/26/161413 Signed Impressions: Service Date/Time: Thursday, May 26, 2016 15:07 - CONCLUSION: 1. Endotracheal tube in satisfactory position. Patchy left basilar airspace disease. Tomer Tan MD Neck CTA 05/26/16 Signed Impressions: Service Date/Time: Thursday, May 26, 2016 14:43 - CONCLUSION: 1. CTA carotids within normal limits for age. Patient intubated. Multiple small thyroid nodules similar to prior chest CT from 2011. Tomer Tan MD Head/Neck CTA with Brain Perfusion 05/26/16 Signed Impressions: Service Date/Time: Thursday, May 26, 2016 14:43 - CONCLUSION: Normal examination. Tomer Tan MD Head CTA 05/26/16 0000 Signed Impressions: Service Date/Time: Thursday, May 26, 2016 14:43 - CONCLUSION: Normal examination for a patient of this age. Tomer Tan MD Objective Remarks GENERAL: Very thin female with temporal wasting, orotracheally intubated on sedation. SKIN: Warm and dry. There is an ecchymosis overlying her left upper arm without deformity. HEAD: Normocephalic. Atraumatic EYES: Pupils equal and round, 6 mm reactive to 4 mm bilaterally, sluggish. No scleral icterus. No injection or drainage. ENT: No nasal bleeding or discharge. Mucous membranes pink and moist. NECK: Trachea midline. No JVD. No meningismus CARDIOVASCULAR: Regular rate and rhythm, sinus rhythm on the monitor.. No murmurs rubs or gallops. RESPIRATORY: On mechanical ventilation, breathing comfortably without accessory muscle use. Lungs clear to auscultation bilaterally GASTROINTESTINAL: Abdomen soft, non-tender, nondistended. Bowel sounds active. MUSCULOSKELETAL: Extremities without clubbing, cyanosis, . RUE edematous and warm to touch. NEUROLOGICAL: Sedation held. Resists attempts at eye opening initially, later opened eyes spontaneously, made eye contact and tracked bilaterally. Follows commands by squeezing hands bilaterally and moving feet bilaterally. No response to Babinski. A/P Problem List: (1) GERD (gastroesophageal reflux disease) ICD Code: K21.9 Status: Chronic (2) Esophagitis ICD Code: K20.9 Status: Chronic (3) Esophageal stricture ICD Code: K22.2 Status: Chronic (4) Lactic acidemia ICD Code: E87.2 Status: Acute (5) Acute encephalopathy ICD Code: G93.40 Status: Acute (6) Chronic pain ICD Code: G89.29 Status: Chronic (7) Glaucoma ICD Code: H40.9 Status: Chronic (8) Hypokalemia ICD Code: E87.6 Status: Acute (9) Acute respiratory failure ICD Code: J96.00 Status: Acute (10) Altered mental status ICD Code: R41.82 Status: Acute (11) Hypoglycemia ICD Code: E16.2 Status: Acute Assessment and Plan NEURO: Acute encephalopathy ? Seizure CT brain 05/26/16no acute abnormality CTA brain and neck with perfusion 05/26/16normal MRI brain: There is no evidence for acute infarction or ischemic changes. Lacunar infarct on the right with some periventricular white matter changes. No parenchymal hemorrhage. EEG within normal. Ammonia level: 17 on 05/26 off Propofol sedation Neuro: Dr. Perez RESP: Acute respiratory failure Nonsmoker Extubated 05/29 - doing well CV: Monitor HR and BP keep MAP>65mmHg. Serial Lactic acid monitoring ( trending down) She had a negative cardiac stress test in 2007 GI: GERD ? GI beled History of esophageal stricture status post dilatation Diverticulosis D/C OGT Continue Protonix 40mg Q12. GI is following- no plan for endoscopy per GI. Colace 100 bid for bowel regimen. Regular diet FEN/RENAL: Lactic acidemia- resolved Monitor renal function, I/O's, electrolytes replacement per protocol. D/C IVF CPK is normal ID: Acute aspiration. No leukocytosis. Chest x-ray with left lower lobe opacity. UA without evidence for infection. Received Zosyn in the ED. Continue Zosyn 3.375 IV every 6 hours (probable aspiration pneumonia, community acquired) Follow-up blood cultures 05/26: NGTD HEME: Monitor CBC. Coags normal. ENDO: SSI with accuchecks PROPH: SCDs, Lovenox 40 mg sq daily for DVT prophylaxis. GI prophylaxis- on Protonix drip Doppler US RUE negative for DVT ACCESS: Peripheral IV providing adequate access at this time Patient has been comfortable on NC. Hemodynamically stable. [facility] will sign off. Please re-consult us if needed. Problem Qualifiers (1) Altered mental status: Qualified Code: R40.2432 - Corine coma scale total score 3-8, at arrival to emergency department Kevan Lo MD May 29, 2016 10:15
[2016-05-29] MEDS: ACETAMINOPHEN 325 MG TAB PO PRN ×2 (11:24→22:21)
--- NOTE | 2016-05-29 13:09 | PD.CONS ---
History of Present Illness Service Ophthalmology Consult Requested By Dr. Bay Reason for Consult possible retinal detachment left eye Primary Care Physician Velma Morales MD Diagnoses: History of Present Illness 65 yo F presenting to ED with altered mental status. Was intubated and admitted to ICU. Extubated yesterday - pt noticed when she was finally alert that the vision in her left eye was different. She noticed her inferior visual field in her left eye was missing with a curtain that was wavy. She has a history of a retinal detachment in her right eye that was repaired twice by . Cataract surgery was done in both eyes by . Past Family Social History Allergies: Coded Allergies: Corticosteroids (Verified Allergy, Severe, Anaphylaxis, 05/26/16) Physical Exam Vital Signs Vital Signs Date Time Temp Pulse Resp B/P Pulse Ox O2 Delivery O2 Flow Rate FiO2 05/29/16 10:00 87 05/29/16 08:33 97 21 05/29/16 08:00 81 05/29/16 08:00 98.6 81 23 136/73 95 05/29/16 07:00 98 Room Air 05/29/16 06:00 88 05/29/16 04:00 98.4 85 16 114/64 95 05/29/16 04:00 85 05/29/16 02:00 96 05/29/16 00:00 104 05/29/16 00:00 98.9 104 16 119/67 96 05/28/16 23:41 98 Nasal Cannula 3.00 05/28/16 22:00 122 05/28/16 20:00 99.3 113 20 126/79 98 05/28/16 20:00 113 05/28/16 19:00 96 Nasal Cannula 4.00 05/28/16 18:00 118 05/28/16 16:00 124 05/28/16 16:00 98.9 124 21 138/61 97 05/28/16 14:00 105 05/28/16 14:00 98 Nasal Cannula 4.00 05/28/16 13:58 97 Nasal Cannula 4.00 05/28/16 13:57 97 Nasal Cannula 4 Physical Exam Va cc at near OD 20/40, OS 20/30 EOM full OU, no diplopia CVF OD general constriction, OS inferior hemidefect Pupils 4-2 no APD OU IOP 11, 10 Anterior exam OD - normal eyelid, C/S W&Q, K clear, AC deep, pupil round, PCIOL OS - normal eyelid, C/S W&Q, K clear, AC deep, pupil round, PCIOL Dilated exam OD - ON s/p/f, ves normal, vit clear, laser in periphery, flat retina OS - ON s/p/f, ves normal, vit clear, superior retinal detachment - mac on Laboratory Laboratory Tests Test 05/28/16 05/28/16 05/29/16 05/29/16 13:22 20:51 04:30 04:58 Blood Gas Puncture Site RT RADIAL Blood Gas Patient Temperature 98.6 Blood Gas HCO3 22 Blood Gas Base Excess -0.4 Blood Gas Oxygen Saturation 98 Arterial Blood pH 7.56 Arterial Blood Partial 24 Pressure CO2 Arterial Blood Partial 174 Pressure O2 Arterial Blood Oxygen Content 16.7 Arterial Blood 1.1 Carboxyhemoglobin Arterial Blood Methemoglobin 1.1 Blood Gas Hemoglobin 12.0 Oxygen Delivery Device VENTILATOR Blood Gas Ventilator Setting CPAP+5/PS10 Blood Gas Inspired Oxygen 35 Potassium Level 3.1 3.0 Phosphorus Level 1.5 1.6 Sodium Level 143 Chloride Level 110 Carbon Dioxide Level 26.5 Anion Gap 7 Blood Urea Nitrogen 6 Creatinine 0.49 Estimat Glomerular Filtration 126 Rate Random Glucose 109 Calcium Level 7.0 Protein Corrected Calcium 7.7 Magnesium Level 2.1 Total Protein 5.7 White Blood Count 6.4 Red Blood Count 3.65 Hemoglobin 10.6 Hematocrit 30.8 Mean Corpuscular Volume 84.3 Mean Corpuscular Hemoglobin 29.1 Mean Corpuscular Hemoglobin 34.6 Concent Red Cell Distribution Width 13.5 Platelet Count 162 Mean Platelet Volume 9.4 Neutrophils (%) (Auto) 74.7 Lymphocytes (%) (Auto) 14.0 Monocytes (%) (Auto) 8.4 Eosinophils (%) (Auto) 2.1 Basophils (%) (Auto) 0.8 Neutrophils # (Auto) 4.7 Lymphocytes # (Auto) 0.9 Monocytes # (Auto) 0.5 Eosinophils # (Auto) 0.1 Basophils # (Auto) 0.0 CBC Comment DIFF FINAL Differential Comment Date/Time Procedure Status Source Growth 05/26/16 15:05 Aerobic Blood Culture - Preliminary Resulted Blood Peripheral NO GROWTH IN 3 DAYS 05/26/16 15:05 Anaerobic Blood Culture - Preliminary Resulted Blood Peripheral NO GROWTH IN 3 DAYS Result Diagram: 2/8/17 0458 05/29/16 0430 Assessment and Plan Problem List: (1) Retinal detachment of left eye with retinal break Status: Acute Plan: New retinal detachment left eye - macula attached. Will notify her retina specialist Dr. Pete. She may do surgical correction while the patient is in the hospital vs waiting until she is an outpatient to schedule. Skye Esteban MD May 29, 2016 13:09
[2016-05-29 18:25] LABS: POTASSIUM 3.4 MEQ/L (3.5-5.1)
[2016-05-29] MEDS: ENOXAPARIN SODIUM 40 MG/0.4 ML SYRINGE SQ SCH (20:14)
[2016-05-29 20:50] LABS: POTASSIUM 3.3 MEQ/L (3.5-5.1)
[2016-05-30] VITALS (12 sets, daily range): BP systolic 121–137; BP diastolic 69–84; PULSE 71–96; RESP 17–26; TEMP 98.2–98.8; O2SAT 95–99
[2016-05-30] MEDS: INSULIN NovoLIN REGULAR SUPPLEMENTAL SCALE SQ SCH ×5 (00:06→21:00)
[2016-05-30] MEDS: PIPERACIL-TAZO 3.375 GM PREMIX 50 ML IV SCH ×4 (00:14→17:42)
[2016-05-30] MEDS: CHLORHEXIDINE GLUCONATE 2 % 1 PACK (2 CLOTHS) TOP SCH (00:14)
[2016-05-30] MEDS: ONDANSETRON HCL 4 MG/2 ML VIAL IV PRN (02:48)
[2016-05-30] MEDS: RESP: ALBUTEROL 2.5 MG/IPRATROPIUM 0.5 MG NEB (SCH) NEB ×3 (03:59→19:19)
[2016-05-30] MEDS: ACETAMINOPHEN 325 MG TAB PO PRN (04:41)
[2016-05-30] MEDS: PANTOPRAZOLE SODIUM 40 MG VIAL IV PUSH SCH ×2 (04:41→17:41)
[2016-05-30] MEDS ORDERED: STERILE WATER FOR INJ 20 ML VIAL ONE (07:43)
[2016-05-30] MEDS ORDERED: DEXAMETHASONE SOD PHOS 4 MG/ML VIAL ONE ×2 (07:44→13:35)
[2016-05-30] MEDS ORDERED: ceFAZolin INJ 1,000 MG VIAL ONE (07:44)
[2016-05-30] MEDS ORDERED: TOBRAMYCIN 0.3%/DEXAMETHASONE 0.1% OPHT SUSP 5 ML BTL ONE (07:44)
[2016-05-30] MEDS ORDERED: TRIAMCINOLONE ACETONIDE/PF 40 MG/ML OPTH VIAL ONE (07:44)
[2016-05-30] MEDS ORDERED: BALANCED SALT SOLN OPHT IRRIG 15 ML BTL ONE (07:44)
[2016-05-30] MEDS ORDERED: TOBRAMYCIN/DEXAMETHASONE OPTH OINT 3.5 GM TUBE ONE (07:44)
[2016-05-30] MEDS ORDERED: BUPIVACAINE HCL PF 0.75% 10 ML VIAL ONE (07:44)
[2016-05-30] MEDS ORDERED: EPINEPHrine HCL (1:1000) 1 MG/ML VIAL ONE (07:44)
[2016-05-30] MEDS: CHLORHEXIDINE 0.12% (ORAL KIT) 15 ML CUP MT SCH ×2 (08:00→20:00)
[2016-05-30] MEDS: SODIUM CHLORIDE 0.9% FLUSH 5 ML FLUSH IV FLUSH SCH ×2 (08:13→21:26)
[2016-05-30] MEDS: DOCUSATE SODIUM 100 MG/10 ML UDC TUBE SCH ×2 (08:13→21:00)
[2016-05-30 10:55] LABS: AUTOMATED NEUTROPHIL # 3.6 TH/MM3 (1.8-7.7); BASOPHIL # 0.1 TH/MM3 (0-0.2); BASOPHIL % 1.1 % (0.0-2.0); EOSINOPHIL # 0.2 TH/MM3 (0-0.4); EOSINOPHIL % 3.5 % (0.0-4.0); HEMATOCRIT 34.3 % (35.0-46.0); HEMO FLAGS DIFF FINAL; LYMPH % 12.9 % (9.0-44.0); LYMPHOCYTE # 0.6 TH/MM3 (1.0-4.8); MEAN CELL VOLUME 85.5 FL (80.0-100.0); MEAN CORPUSCULAR HEMOGLOBIN 28.4 PG (27.0-34.0); MEAN CORPUSCULAR HGB CONC 33.2 % (32.0-36.0); MONO % 6.9 % (0.0-8.0); NEUT % 75.6 % (16.0-70.0); PLATELET COUNT 181 TH/MM3 (150-450); RED BLOOD COUNT 4.01 MIL/MM3 (4.00-5.30); RED CELL DISTRIBUTION WIDTH 13.8 % (11.6-17.2); WHITE BLOOD COUNT 4.7 TH/MM3 (4.0-11.0)
[2016-05-30 11:15] LABS: ALT (GPT) 22 U/L (10-53); ANION GAP 7 MEQ/L (5-15); AST (GOT) 24 U/L (15-37); BICARBONATE 24.1 MEQ/L (21.0-32.0); BLOOD UREA NITROGEN 3 MG/DL (7-18); CHLORIDE 112 MEQ/L (98-107); GLOMERULAR FILTRATION RATE 123 ML/MIN (>89); MAGNESIUM 2.2 MG/DL (1.5-2.5); SODIUM (NA) 143 MEQ/L (136-145)
[2016-05-30 11:17] LABS: ALKALINE PHOSPHATASE 57 U/L (45-117); TOTAL BILIRUBIN ADULT 0.5 MG/DL (0.2-1.0)
[2016-05-30] MEDS ORDERED: LACTATED RINGER'S 1000 ML INJ 1,000 ML IV ONE (12:00)
[2016-05-30] MEDS ORDERED: PHENYLEPH/NS 1000 MCG/10 ML SYR IV ONE (12:00)
[2016-05-30] MEDS ORDERED: PROPOFOL 200 MG/20 ML AMP IV ONE (12:00)
[2016-05-30] MEDS ORDERED: ONDANSETRON HCL 4 MG/2 ML VIAL IV PUSH ONE (12:00)
--- NOTE | 2016-05-30 12:33 | HHI.FPPN ---
Subjective Remarks Ms Cortes is a 65-year-old female with past medical history of chronic neck pain secondary to cervical radiculopathy, GERD, esophageal stricture s/p dilations. Her neighbor states she was in her usual state of health the day before admission and had been out shopping with another neighbor. On the day of admission, she was not answering her phone and her neighbor saw her laying on the floor, not responsive to knocks on the door. The neighbor, called 911 and patient was obtunded upon EVAC arrival. Upon arrival to the ED she was noted to be unresponsive to noxious stimuli, occasional flicker of left hand, disconjugate gaze. She was intubated for airway protection. Glucose 53. CT brain was negative. Alcohol, Tylenol, salicylate levels are negative. Urine drug screen is positive for benzodiazepines and opiates. She is on pain therapy including benzos and opiates for her chronic neck pain. There was no obvious witnessed seizure activity. She was afebrile with no leukocytosis. She has been seen by Dr. Perez with neurology. CTA brain and neck was obtained due to concern for posterior circulation stroke. These were negative. EEG was done. Initially, patient was sedated with Diprivan and intubated. Patient had approx 300ml coffee ground/bloody fluid from OGT and was placed on Protonix drip. H/H stable. She was extubated 2 days ago and has done well. Her care is transferred to family medicine as she is doing well and can be transferred out of the ICU. Ms Cortes reports this am that she has been seeing pain management for quite some time and takes liquid meds as "I can't swallow pills". She was taking her 2 different narcotics and had "a very bad headache" on the day she was admitted. She believes she took "too much medicine" and ended up in the hospital. She said the last thing she remembered was going to bed and the "waking up in the hospital". She feels back to normal today as far as her respiratory state and her functioning except for her retina which is detached. She had her right eye treated a year ago and now her left eye has a partially detached retina and she is scheduled to have this treated today. She was questioning her Reclast as both times her retina detached were within a month of having a Reclast infusion. I explained it is not a well known complication but anything is possible with meds especially new meds can have unrecognized side effects. She can ask her Product Support Specialist who knows best. Objective Vitals Vital Signs Date Time Temp Pulse Resp B/P Pulse Ox O2 Delivery O2 Flow Rate FiO2 05/30/16 10:00 74 05/30/16 08:00 Room Air 05/30/16 08:00 96 05/30/16 08:00 98.2 83 18 132/71 97 05/30/16 06:00 83 05/30/16 05:58 20 05/30/16 04:00 86 05/30/16 04:00 98.8 86 20 137/84 99 05/30/16 02:00 84 05/30/16 00:00 95 05/30/16 00:00 98.6 95 20 137/69 95 05/29/16 22:00 103 05/29/16 21:23 95 21 05/29/16 20:00 90 05/29/16 20:00 98.4 90 20 139/68 97 05/29/16 20:00 Room Air 05/29/16 18:00 84 05/29/16 16:00 77 05/29/16 16:00 99.1 77 14 140/74 98 05/29/16 14:00 87 05/29/16 12:00 98.6 89 29 128/81 98 05/29/16 12:00 89 I/O 05/29/16 05/29/16 05/29/16 05/30/16 05/30/16 05/30/16 07:00 15:00 23:00 07:00 15:00 23:00 Intake Total 557 ml 936 ml 664 ml 700 ml Output Total 750 ml 1000 ml 1000 ml 1000 ml Balance -193 ml -64 ml -336 ml -300 ml IV Total 557 ml 936 ml 664 ml 700 ml Output Urine Total 750 ml 1000 ml 1000 ml 1000 ml # Bowel Movements 1 6 Result Diagram: 05/30/16 1020 05/30/16 1020 Objective Remarks GENERAL: Very thin female with temporal wasting, alert and talking well today SKIN: Warm and dry. There is an ecchymosis overlying her left upper arm without deformity. HEAD: Normocephalic. Atraumatic EYES: Pupils equal and round. No scleral icterus. No injection or drainage. "Extra sparkly" left eye when the light hits it just right her eye reflects more light. ENT: No nasal bleeding or discharge. Mucous membranes pink and moist. NECK: Trachea midline. No JVD. No meningismus CARDIOVASCULAR: Regular rate and rhythm, sinus rhythm on the monitor.. No murmurs rubs or gallops. RESPIRATORY: On mechanical ventilation, breathing comfortably without accessory muscle use. Lungs clear to auscultation bilaterally GASTROINTESTINAL: Abdomen soft, non-tender, nondistended. Bowel sounds active. MUSCULOSKELETAL: Extremities without clubbing, cyanosis, . RUE edematous and warm to touch. NEUROLOGICAL: moves all extremities and wants to get up and go home when possible Urinary Catheter: No Vascular Central Line Catheter: No A/P Assessment and Plan PROPH: SCDs, Lovenox 40 mg sq daily for DVT prophylaxis. GI prophylaxis- on Protonix drip Doppler US RUE negative for DVT Discharge Planning She is greatly improved and should be transferred out of [facility] today. Anticipate D /C home within next few days. Problem List: (1) Acute encephalopathy Status: Resolved Plan: CT brain 05/26/16no acute abnormality CTA brain and neck with perfusion 05/26/16normal MRI brain: There is no evidence for acute infarction or ischemic changes. Lacunar infarct on the right with some periventricular white matter changes. No parenchymal hemorrhage. EEG within normal. Ammonia level: 17 on 05/26 Neuro: Dr. Perez she is talkative and alert and back to normal today (2) Retinal detachment Status: Acute Plan: acute on left. having procedure today (3) Postmenopausal osteoporosis Status: Chronic Plan: she has had Reclast which lasts for a year and can decide what she wants to do next year (4) Cervical spondylitis with radiculitis Status: Chronic Plan: she has taken pain meds for quite some time. it has been made clear that she needs to be very careful mixing her narcotics, benzos and muscle relaxers. It was inadvertent on her part. Will recommend decreased doses or stopping some meds at D/C. (5) Anxiety Status: Acute (6) Lactic acidemia Status: Resolved Plan: Serial Lactic acid trended down, back to normal now She had a negative cardiac stress test in 2007 (7) Acute respiratory failure Status: Resolved Plan: Nonsmoker Extubated 05/29 - doing well resulted from oversedation and decreased respiration Acute aspiration. No leukocytosis. Chest x-ray with left lower lobe opacity. UA without evidence for infection. Received Zosyn in the ED. Continue Zosyn 3.375 IV every 6 hours (probable aspiration pneumonia, community acquired) Follow-up blood cultures 05/26: NGTD (8) GERD (gastroesophageal reflux disease) Status: Chronic Plan: possible GI bleed History of esophageal stricture status post dilatation Diverticulosis Continue Protonix 40mg Q12, can give liquid po. GI is following- no plan for endoscopy per GI. Colace 100 bid for bowel regimen. Regular diet (9) Electrolyte abnormality Status: Acute Plan: her calcium is low and her phos. she has been getting replacement. unclear why these are so low. she is taking calcium and Vit D as an outpt. Problem Qualifiers (1) Retinal detachment: Qualified Code: H33.22 - Retinal detachment, left (2) Acute respiratory failure: Qualified Code: J96.01 - Acute respiratory failure with hypoxia and hypercapnia (3) GERD (gastroesophageal reflux disease): Qualified Code: K21.9 - Gastroesophageal reflux disease, esophagitis presence not specified Linda Acosta MD May 30, 2016 12:33
[2016-05-30] MEDS ORDERED: FAMOTIDINE 20 MG/2 ML VIAL ONE (13:35)
[2016-05-30] MEDS ORDERED: ONDANSETRON HCL 4 MG/2 ML VIAL ONE (13:35)
[2016-05-30] MEDS ORDERED: fentaNYL CITRATE 250 MCG/5 ML AMP ONE ×2 (13:35→16:11)
[2016-05-30] MEDS: D5-1/2 NS + KCL 20 MEQ INJ 1,000 ML IV SCH (15:47)
[2016-05-30] MEDS ORDERED: POTASSIUM PHOSPHATE INJ 30 MMOL in SODIUM CHLOR 0.9% 250 ML INJ 250 ML IV ONE (16:00)
[2016-05-30] MEDS ORDERED: ONDANSETRON HCL 4 MG/2 ML VIAL IV PRN (16:58)
[2016-05-30] MEDS ORDERED: ACETAMINOPHEN 500 MG CPLT PO PRN (16:59)
[2016-05-30] MEDS ORDERED: DO NOT ADM ANY ANTICOAGULANT DRUGS XX PRN (17:00)
[2016-05-30] MEDS: oxyCODONE/ACETAMINOPHEN 5 MG/325 MG TAB PO PRN ×2 (17:41→21:27)
[2016-05-30] MEDS: LORazepam 2 MG/ML VIAL IV PUSH PRN ×2 (17:41→21:55)
[2016-05-30] MEDS: ENOXAPARIN SODIUM 40 MG/0.4 ML SYRINGE SQ SCH (21:26)
[2016-05-30] MEDS: MORPHINE SULFATE 4 MG/ML INJ IV PUSH PRN (23:07)
[2016-05-31] VITALS (12 sets, daily range): BP systolic 115–126; BP diastolic 56–70; PULSE 74–87; RESP 16–27; TEMP 98.3–98.8; O2SAT 97–100
[2016-05-31] MEDS: INSULIN NovoLIN REGULAR SUPPLEMENTAL SCALE SQ SCH ×6 (00:19→20:42)
[2016-05-31] MEDS: PIPERACIL-TAZO 3.375 GM PREMIX 50 ML IV SCH ×5 (00:38→23:26)
[2016-05-31] MEDS ORDERED: ONDANSETRON HCL 4 MG/2 ML VIAL IV PRN (02:29)
[2016-05-31] MEDS: CHLORHEXIDINE GLUCONATE 2 % 1 PACK (2 CLOTHS) TOP SCH (04:00)
[2016-05-31] MEDS: RESP: ALBUTEROL 2.5 MG/IPRATROPIUM 0.5 MG NEB (SCH) NEB ×4 (04:00→20:03)
[2016-05-31 04:34] LABS: AUTOMATED NEUTROPHIL # 5.5 TH/MM3 (1.8-7.7); BASOPHIL % 0.6 % (0.0-2.0); EOSINOPHIL # 0.2 TH/MM3 (0-0.4); EOSINOPHIL % 3.3 % (0.0-4.0); HEMATOCRIT 35.1 % (35.0-46.0); HEMO FLAGS DIFF FINAL; LYMPH % 13.8 % (9.0-44.0); MEAN CELL VOLUME 86.3 FL (80.0-100.0); MEAN CORPUSCULAR HEMOGLOBIN 28.9 PG (27.0-34.0); MEAN CORPUSCULAR HGB CONC 33.5 % (32.0-36.0); MONO % 5.8 % (0.0-8.0); NEUT % 76.5 % (16.0-70.0); PLATELET COUNT 205 TH/MM3 (150-450); RED BLOOD COUNT 4.07 MIL/MM3 (4.00-5.30); RED CELL DISTRIBUTION WIDTH 13.6 % (11.6-17.2); WHITE BLOOD COUNT 7.2 TH/MM3 (4.0-11.0)
[2016-05-31] MEDS: PANTOPRAZOLE SODIUM 40 MG VIAL IV PUSH SCH ×2 (04:39→18:03)
[2016-05-31] MEDS: D5-1/2 NS + KCL 20 MEQ INJ 1,000 ML IV SCH ×3 (04:40→23:26)
[2016-05-31] MEDS: oxyCODONE/ACETAMINOPHEN 5 MG/325 MG TAB PO PRN (04:51)
[2016-05-31 05:36] LABS: BICARBONATE 20.6 MEQ/L (21.0-32.0); MAGNESIUM 1.9 MG/DL (1.5-2.5)
[2016-05-31 05:53] LABS: CALCIUM-PROTEIN CORRECTED 7.8 MG/DL (8.5-10.1)
[2016-05-31] MEDS: MORPHINE SULFATE 4 MG/ML INJ IV PUSH PRN ×2 (06:51→20:44)
[2016-05-31] MEDS: DOCUSATE SODIUM 100 MG/10 ML UDC TUBE SCH ×2 (07:54→20:43)
[2016-05-31] MEDS: SODIUM CHLORIDE 0.9% FLUSH 5 ML FLUSH IV FLUSH SCH ×2 (07:54→20:42)
[2016-05-31] MEDS: LORazepam 2 MG/ML VIAL IV PUSH PRN (07:54)
[2016-05-31] MEDS: CHLORHEXIDINE 0.12% (ORAL KIT) 15 ML CUP MT SCH ×2 (08:00→20:00)
[2016-05-31] MEDS: SODIUM PHOSPHATE INJ 30 MMOL in SODIUM CHLOR 0.9% 250 ML INJ 240 ML IV PRN ×2 (08:52→23:26)
--- NOTE | 2016-05-31 10:40 | HHI.FPPN ---
Subjective Remarks Patient seen and examined. No acute events overnight. Vital sign stable, afebrile. She is s/p pars plana vitrectomy of left eye. Pain is controlled however she complains of nausea this morning. Still has a Torres in and has not been able to ambulate yet. (Kira Dickens MD R3) Objective Vitals Vital Signs Date Time Temp Pulse Resp B/P Pulse Ox O2 Delivery O2 Flow Rate FiO2 05/31/16 08:00 86 05/31/16 08:00 95 Room Air 05/31/16 06:00 82 05/31/16 04:00 81 05/31/16 04:00 98.4 81 27 118/56 99 05/31/16 02:00 87 05/31/16 00:00 98.4 79 26 121/70 98 05/31/16 00:00 79 05/30/16 22:00 84 05/30/16 20:00 90 05/30/16 20:00 98.2 90 26 121/70 98 05/30/16 19:00 98 Room Air 05/30/16 18:00 74 05/30/16 16:40 98.0 89 15 152/83 98 Room Air 05/30/16 16:15 86 15 141/83 99 Room Air 05/30/16 16:03 98.1 99 15 133/81 99 Room Air 05/30/16 16:00 98.5 85 17 136/78 97 05/30/16 16:00 78 05/30/16 14:00 71 05/30/16 12:00 88 05/30/16 12:00 98.3 80 18 136/73 97 I/O 05/30/16 05/30/16 05/30/16 05/31/16 05/31/16 05/31/16 07:00 15:00 23:00 07:00 15:00 23:00 Intake Total 700 ml 660 ml 1950 ml 735 ml Output Total 1000 ml 1250 ml 1026 ml 425 ml Balance -300 ml -590 ml 924 ml 310 ml Intake Oral 120 ml 120 ml IV Total 700 ml 660 ml 1180 ml 615 ml Other 650 ml Output Urine Total 1000 ml 1250 ml 1025 ml 425 ml Estimated Blood Loss 1 ml # Bowel Movements 0 0 (Kira Dickens MD R3) Result Diagram: 05/31/16 0345 05/31/16 0345 Imaging Upper Extremity Ultrasound 05/27/16 Signed Impressions: Service Date/Time: Friday, May 27, 2016 14:26 - CONCLUSION: Negative for deep venous thrombosis. Julio Calvo MD FACR Brain MRI 05/27/16 Signed Impressions: Service Date/Time: Friday, May 27, 2016 10:18 - CONCLUSION: 1. There is no evidence for acute infarction or ischemic changes. 2. Lacunar infarct on the right with some periventricular white matter changes. 3. There is no parenchymal hemorrhage. Julio Calvo MD FACR Head CT 05/26/16 1414 Signed Impressions: Service Date/Time: Thursday, May 26, 2016 14:22 - CONCLUSION: No acute intracranial disease. Amanuel Hill MD Chest X-Ray 05/26/16 141 Signed Impressions: Service Date/Time: Thursday, May 26, 2016 15:07 - CONCLUSION: 1. Endotracheal tube in satisfactory position. Patchy left basilar airspace disease. Tomer Tan MD Neck CTA 05/26/16 Signed Impressions: Service Date/Time: Thursday, May 26, 2016 14:43 - CONCLUSION: 1. CTA carotids within normal limits for age. Patient intubated. Multiple small thyroid nodules similar to prior chest CT from 2012. Tomer Tan MD Head/Neck CTA with Brain Perfusion 05/26/16 Signed Impressions: Service Date/Time: Thursday, May 26, 2016 14:43 - CONCLUSION: Normal examination. Tomer Tan MD Head CTA 05/26/16 Signed Impressions: Service Date/Time: Thursday, May 26, 2016 14:43 - CONCLUSION: Normal examination for a patient of this age. Tomer Tan MD Objective Remarks GENERAL: Very thin female sleeping but arousable SKIN: Warm and dry. There is an ecchymosis overlying her left upper arm without deformity. HEAD: Normocephalic. Atraumatic EYES: Pupils equal and round. No scleral icterus. No injection or drainage. Shield intact on left eye. ENT: No nasal bleeding or discharge. Mucous membranes pink and moist. NECK: Trachea midline. CARDIOVASCULAR: Regular rate and rhythm, sinus rhythm on the monitor.. No murmurs rubs or gallops. RESPIRATORY: On mechanical ventilation, breathing comfortably without accessory muscle use. Lungs clear to auscultation bilaterally GASTROINTESTINAL: Abdomen soft, non-tender, nondistended. Bowel sounds active. MUSCULOSKELETAL: Extremities without clubbing, cyanosis NEUROLOGICAL: No focal deficits. Moves all extremities. Normal speech. (Kira Dickens MD R3) Urinary Catheter: Yes Assessment to: Remove (Kira Dickens MD R3) A/P Assessment and Plan Patient is a 65 year old female who was admitted for AMS and respiratory failure. She is s/p extubation on 05/28. Mental status is back to baseline and patient appears to be doing well. Also found to have retinal detachment of left eye s/p repair on 05/30/16. Discharge Planning She is greatly improved and [place] [facility] [place] Anticipate D /C home in 1-2 days. (Kira Dickens MD R3) Attending Attestation Patient seen and examined. Case reviewed and discussed with the resident team. Agree with plan of care as discussed with me and documented in the resident note. gave her a regular diet as she was NPO for surgery. Discussed with her friend and pt that the same meds she tolerated before are too much now. Discussed benzos with her and she has panic attacks and reports trying probably celexa or other meds and only wanting benzos for her acute attacks. She does not believe anything else has worked. I explained that people's liver and kidneys, etc age and the same doses can become too much and especially mixing opiates, benzos and muscle relaxers is a bad combination. We discussed a pill box so she cannot take too much if she forgets she took a dose. Also considering [facility] so that a nurse can check her home to help with careful use of meds. (Linda Acosta MD) Problem List: (1) Acute encephalopathy Status: Resolved Plan: Mental status is back to baseline. She is AAOx 3. Etiology of encephalopathy unclear but could be related to drug overdose. Patient stated that she was unsure if she took too much of her pain medications. Ammonia level : 17 on 05/26. UDS positive for BDZ and opiates. -Neurology consulted. Appreciated recs * Supportive care * Neuro checks -Continue to monitor Imaging: * CT brain 05/26/16no acute abnormality * CTA brain and neck with perfusion 05/26/16normal * MRI brain: There is no evidence for acute infarction or ischemic changes. Lacunar infarct on the right with some periventricular white matter changes. No parenchymal hemorrhage. * EEG within normal. (2) Acute respiratory failure Status: Resolved Plan: Nonsmoker Extubated 05/29 - doing well resulted from oversedation and decreased respiration Acute aspiration. No leukocytosis. Chest x-ray with left lower lobe opacity. UA without evidence for infection. Received Zosyn in the ED. Continue Zosyn 3.375 IV every 6 hours (probable aspiration pneumonia, community acquired) Follow-up bloo 05/26: NGTD d cultures (3) Retinal detachment Status: Acute Plan: s/p repair on 05/30. Clinically stable (4) Postmenopausal osteoporosis Status: Chronic Plan: She has had Reclast which lasts for a year and can decide what she wants to do next year because she is concerned that it may be related to her retinal detachments (5) Cervical spondylitis with radiculitis Status: Chronic Plan: She has taken pain meds for quite some time. it has been made clear that she needs to be very careful mixing her narcotics, benzos and muscle relaxers. It was inadvertent on her part. Will recommend decreased doses or stopping some meds at D/C. (6) Anxiety Status: Acute Plan: Continue benzos (7) Lactic acidemia Status: Resolved Plan: Resolved. She had a negative cardiac stress test in 2007 (8) GERD (gastroesophageal reflux disease) Status: Chronic Plan: History of esophageal stricture status post dilatation and Diverticulosis. Had dark color aspirate from nasogastric tube several days ago; however no further episodes of GIB noted. H/H stable. -Continue Protonix 40mg Q12, can give liquid po. -GI consulted: * no plan for endoscopy per GI. Could follow up as outpatient -Colace 100 bid for bowel regimen. -Regular diet -Zofran prn nausea (9) Electrolyte abnormality Status: Acute Plan: Calcium and phosphorus are low. Unsure why electrolytes continue to be low. -Continue replacement. (Kira Dickens MD R3) Problem Qualifiers (1) Acute respiratory failure: Qualified Code: J96.01 - Acute respiratory failure with hypoxia and hypercapnia (2) Retinal detachment: Qualified Code: H33.22 - Retinal detachment, left (3) GERD (gastroesophageal reflux disease): Qualified Code: K21.9 - Gastroesophageal reflux disease, esophagitis presence not specified Kira Dickens MD R3 May 31, 2016 10:40 Linda Acsota MD May 31, 2016 14:05
[2016-05-31] MEDS: ENOXAPARIN SODIUM 40 MG/0.4 ML SYRINGE SQ SCH (20:43)
--- NOTE | 2016-05-31 20:51 | MP ---
cc: GUADALUPE PETE M.D. DATE OF SURGERY: 05/30/2016. PREOPERATIVE DIAGNOSIS: Rhegmatogenous retinal detachment left eye. POSTOPERATIVE DIAGNOSIS: Rhegmatogenous retinal detachment left eye. OPERATIVE PROCEDURE PERFORMED: A trans pars plana vitrectomy, internal drainage of subretinal fluid using Perfluoron liquid, indirect laser and endolaser retinopexy and gas fluid exchange, left eye. SURGEON: Guadalupe Pete MD. ANESTHESIA: General laryngeal mask anesthesia. INDICATIONS FOR THE PROCEDURE: Ms. Cortes is a 65-year-old female who was admitted to [facility] on May 26 after being found unresponsive. She was admitted to the intensive care unit and intubated and found to have suffered an accidental drug overdose. She turned around quickly and was doing well but on Friday, noticed half of her vision in the left eye was gone. Dr. Esteban did a consult and saw a retinal detachment and because she was stable, it was arranged that we could do her surgery as her inpatient status. Informed consent was obtained. She had already had a similar procedure in her right eye a year and a half ago for a retinal detachment. She understood the risks and benefits and wished to proceed. She was consented for a vitrectomy and possible scleral buckle and any other necessary procedures. DESCRIPTION OF THE PROCEDURE IN DETAIL: She was brought to [facility] operating room #1 and placed on the operating table. Appropriate anesthesia monitoring devices were applied. She was placed under general anesthesia using a laryngeal mask. The left eye was identified as the operative site and prepped and draped in the usual sterile fashion. A lid speculum was placed. At this point, an appropriate time-out was called with the surgical team agreeing to the procedure and the surgical site. Using the Damien 23-gauge vitrectomy system, the trocar cannulas were placed first at 3 o'clock 3.5 mm posterior to the limbus and verified to be in the posterior chamber. An infusion cannula was attached and it was turned on. Two additional trocar cannulas were placed at 10 and 2 o'clock. Using the biome wide angle viewing system, the eye was entered with the Endo general medical practitioner light pipe and vitrectomy cutter and a core vitrectomy was carried out and it was also carried out into the periphery where there was a very bullous retinal detachment superiorly from about 11 o'clock around to approximately 4 o'clock. There appeared to be a retinal break just at approximately 12:30. Perfluoron was used to stabilize the mobile retina and flatten the bullous detachment after which the more peripheral and anterior vitreous could be removed safely. Next using both the laser indirect delivery system and the endolaser probe, a laser retinopexy was done 360 degrees around the periphery with a power that varied from 250 milliwatts and 0.1-second exposure for the endolaser to 450 milliwatts and 0.1-second for the indirect laser delivery for a total of 1914 spots. The Perfluoron was then removed and exchanged for air. The air was exchanged for a 24% mixture of SF6 gas after which the cannulas were removed one by one with tamponade of the site with a cotton swab and diathermy to the overlying conjunctiva leaving the eye with good pressure and no visible air leaks. Atropine drops were placed on the cornea followed by injection of Ancef 125 mg in 0.5 cc and Decadron 1 mg in 0.25 cc. The lid speculum was removed and the patient was undraped. TobraDex ointment was placed on the cornea and then the left eye was patched and shielded. The patient had the laryngeal mask removed in the room and was returned recovery in good condition laying on her right side. When awake and alert, she will be asked to begin face-down positioning. MD DALTON Fiore/ALBERT /4:16 PM /8:44 PM
[2016-06-01] VITALS (12 sets, daily range): BP systolic 116–152; BP diastolic 59–106; PULSE 73–122; RESP 19–34; TEMP 98.5–99.1; O2SAT 95–99
[2016-06-01] MEDS: INSULIN NovoLIN REGULAR SUPPLEMENTAL SCALE SQ SCH ×6 (01:00→20:05)
[2016-06-01] MEDS: CHLORHEXIDINE GLUCONATE 2 % 1 PACK (2 CLOTHS) TOP SCH (02:18)
[2016-06-01] MEDS: RESP: ALBUTEROL 2.5 MG/IPRATROPIUM 0.5 MG NEB (SCH) NEB ×4 (03:44→20:44)
[2016-06-01] MEDS: PIPERACIL-TAZO 3.375 GM PREMIX 50 ML IV SCH ×3 (05:15→17:38)
[2016-06-01] MEDS: PANTOPRAZOLE SODIUM 40 MG VIAL IV PUSH SCH ×2 (05:15→15:33)
[2016-06-01] MEDS: MORPHINE SULFATE 4 MG/ML INJ IV PUSH PRN ×2 (05:15→19:56)
[2016-06-01 06:25] LABS: POTASSIUM 3.1 MEQ/L (3.5-5.1)
[2016-06-01 06:36] LABS: CALCIUM-PROTEIN CORRECTED 7.8 MG/DL (8.5-10.1)
[2016-06-01] MEDS: CHLORHEXIDINE 0.12% (ORAL KIT) 15 ML CUP MT SCH ×2 (07:48→19:56)
[2016-06-01] MEDS: SODIUM CHLORIDE 0.9% FLUSH 5 ML FLUSH IV FLUSH SCH ×2 (07:48→19:55)
[2016-06-01] MEDS: DOCUSATE SODIUM 100 MG/10 ML UDC TUBE SCH ×2 (07:49→19:56)
--- NOTE | 2016-06-01 08:52 | HHI.FPPN ---
Subjective Remarks POD #2 s/p retinal detachment repair. Patient seen and examined. No acute events overnight. Vision in left eye is still blurry but no other complaints. Pain is controlled. (Kira Dickens MD R3) Objective Vitals Vital Signs Date Time Temp Pulse Resp B/P Pulse Ox O2 Delivery O2 Flow Rate FiO2 06/01/16 06:00 73 06/01/16 04:00 73 06/01/16 04:00 98.5 73 19 118/62 97 06/01/16 02:00 78 06/01/16 00:00 99.1 81 21 116/59 95 06/01/16 00:00 81 05/31/16 22:00 85 05/31/16 20:00 84 05/31/16 20:00 98.7 84 16 126/64 97 05/31/16 19:00 97 Room Air 05/31/16 18:00 74 05/31/16 16:00 80 05/31/16 16:00 98.4 81 18 115/58 98 05/31/16 14:00 77 05/31/16 12:00 98.8 87 20 124/63 100 05/31/16 12:00 85 05/31/16 10:00 82 I/O 05/31/16 05/31/16 05/31/16 06/01/16 06/01/16 06/01/16 07:00 15:00 23:00 07:00 15:00 23:00 Intake Total 735 ml 565 ml 653 ml 847 ml Output Total 425 ml 880 ml 750 ml 600 ml Balance 310 ml -315 ml -97 ml 247 ml Intake Oral 120 ml 120 ml 120 ml IV Total 615 ml 565 ml 533 ml 727 ml Output Urine Total 425 ml 880 ml 750 ml 600 ml # Bowel Movements 0 1 0 (Kira Dickens MD R3) Result Diagram: 05/31/16 0345 06/01/16 0429 Imaging Upper Extremity Ultrasound 05/27/16 0000 Signed Impressions: Service Date/Time: Friday, May 27, 2016 14:26 - CONCLUSION: Negative for deep venous thrombosis. Julio Calvo MD FACR Brain MRI 05/27/16 0000 Signed Impressions: Service Date/Time: Friday, May 27, 2016 10:18 - CONCLUSION: 1. There is no evidence for acute infarction or ischemic changes. 2. Lacunar infarct on the right with some periventricular white matter changes. 3. There is no parenchymal hemorrhage. Julio Calvo MD FACR Head CT 05/26/161413 Signed Impressions: Service Date/Time: Thursday, May 26, 2016 14:22 - CONCLUSION: No acute intracranial disease. Amanuel Hill MD Chest X-Ray 05/26/161413 Signed Impressions: Service Date/Time: Thursday, May 26, 2016 15:07 - CONCLUSION: 1. Endotracheal tube in satisfactory position. Patchy left basilar airspace disease. Tomer Tan MD Neck CTA 05/26/16 0000 Signed Impressions: Service Date/Time: Thursday, May 26, 2016 14:43 - CONCLUSION: 1. CTA carotids within normal limits for age. Patient intubated. Multiple small thyroid nodules similar to prior chest CT from 2011. Tomer Tan MD Head/Neck CTA with Brain Perfusion 05/26/16 0000 Signed Impressions: Service Date/Time: Thursday, May 26, 2016 14:43 - CONCLUSION: Normal examination. Tomer Tan MD Head CTA 05/26/16 0000 Signed Impressions: Service Date/Time: Thursday, May 26, 2016 14:43 - CONCLUSION: Normal examination for a patient of this age. Tomer Tan MD Objective Remarks GENERAL: Very thin female in NAD SKIN: Warm and dry. HEAD: Normocephalic. Atraumatic EYES: Pupils equal and round. Left with conjunctival/subconjunctival injection secondary to recent surgery. Appears to be healing well. ENT: No nasal bleeding or discharge. Mucous membranes pink and moist. NECK: Trachea midline. CARDIOVASCULAR: Regular rate and rhythm, sinus rhythm on the monitor.. No murmurs rubs or gallops. RESPIRATORY: Breathing comfortably without accessory muscle use. Lungs clear to auscultation bilaterally GASTROINTESTINAL: Abdomen soft, non-tender, nondistended. Bowel sounds active. MUSCULOSKELETAL: Extremities without clubbing, cyanosis NEUROLOGICAL: No focal deficits. Moves all extremities. Normal speech. (Kira Dickens MD R3) A/P Assessment and Plan Patient is a 65 year old female who was admitted for AMS and respiratory failure. She is s/p extubation on 05/28. Mental status is back to baseline and patient appears to be doing well. Also found to have retinal detachment of left eye s/p repair on 05/30/16. Her only barrier to discharge is electrolyte abnormalities. She continues to need IV replacement of her potassium and phosphorus. Etiology of abnormalities is unclear. Discharge Planning She is greatly improved and should be transferred out of [facility] [place]. Anticipate D/C home in 1-2 days once electrolytes are stable. (Kira Dickens MD R3) Attending Attestation Patient seen and examined. Case reviewed and discussed with the resident team. Agree with plan of care as discussed with me and documented in the resident note. she possibly has her coma caused by a low phos. Reclast can cause low K and phos in more than 10%. If her level was low acutely, people can get muscle weakness, stupor, coma and then . On further questioning, she has no excess consumption of her opiates. She did not mix her meds but only reports taking half of a lortab which she evidently has taken for years. Will check a Vitamin D level as that can give the current picture of low electrolytes. Will start po Kphos as she may need supplementation for weeks or months. (Linda Acosta MD) Problem List: (1) Acute encephalopathy Status: Resolved Plan: Mental status is back to baseline. She is AAOx 3. Etiology of encephalopathy unclear but could be related to drug overdose. Patient stated that she was unsure if she took too much of her pain medications. Ammonia level : 17 on 05/26. UDS positive for BDZ and opiates. -Neurology consulted. Appreciated recs * Supportive care * Neuro checks -CM to see if we can get home health care nursing to health with her medications -Continue to monitor Imaging: * CT brain 05/26/16no acute abnormality * CTA brain and neck with perfusion 05/26/16normal * MRI brain: There is no evidence for acute infarction or ischemic changes. Lacunar infarct on the right with some periventricular white matter changes. No parenchymal hemorrhage. * EEG within normal. (2) Acute respiratory failure Status: Resolved Plan: Patient was intubated on admission and had suspect aspiration pneumonia as chest x-ray with left lower lobe opacity. Extubated on 05/29. Respiratory status improved and patient doing well. Suspect respiratory failure resulting form oversedation. -Continue Zosyn 3.375mg IV Q6h (05/26-). Will consider transitioning to oral Clindamycin in anticipation for discharge in 1-2 days -Bcx 05/26: NGTD (3) Retinal detachment Status: Acute Plan: s/p repair on 05/30. Clinically stable (4) Electrolyte abnormality Status: Acute Plan: Potassium, calcium, and phosphorus are low. Etiology is unclear. -Continue replacement per ICU protocol -Repeat labs pending -Continue cardiac telemetry (5) Postmenopausal osteoporosis Status: Chronic Plan: She has had Reclast which lasts for a year and can decide what she wants to do next year because she is concerned that it may be related to her retinal detachments (6) Cervical spondylitis with radiculitis Status: Chronic Plan: She has taken pain meds for quite some time. it has been made clear that she needs to be very careful mixing her narcotics, benzos and muscle relaxers. It was inadvertent on her part. Will recommend decreased doses or stopping some meds at D/C. (7) Anxiety Status: Acute Plan: Continue benzos (8) GERD (gastroesophageal reflux disease) Status: Chronic Plan: History of esophageal stricture status post dilatation and diverticulosis. Had dark color aspirate from nasogastric tube several days ago; however no further episodes of GIB noted. H/H stable. -Continue Protonix 40mg Q12, can give liquid po. -GI consulted: * no plan for endoscopy per GI. Could follow up as outpatient * GI has signed off -Colace 100 bid for bowel regimen. -Regular diet -Zofran prn nausea (9) Nutrition, metabolism, and development symptoms Status: Acute Plan: Diet: Regular as tolerated Fluids: HLIV Electrolytes: See plan above (Kira Dickens MD R3) Problem Qualifiers (1) Acute respiratory failure: Qualified Code: J96.01 - Acute respiratory failure with hypoxia and hypercapnia (2) Retinal detachment: Qualified Code: H33.22 - Retinal detachment, left (3) GERD (gastroesophageal reflux disease): Qualified Code: K21.9 - Gastroesophageal reflux disease, esophagitis presence not specified Kira Dickens MD R3 Jun 01, 2016 08:52 Linda Acosta MD Jun 01, 2016 11:59
[2016-06-01] MEDS ORDERED: SERTRALINE HCL 50 MG TAB PO SCH (09:30)
[2016-06-01] MEDS ORDERED: PARoxetine HCL 20 MG TAB PO SCH (09:30)
[2016-06-01] MEDS: CALCIUM CARBONATE 1.25 GM (CA 500 MG) TAB PO SCH (10:15)
[2016-06-01] MEDS: POTASSIUM PHOSPHATE MONOBASIC 500 MG TAB PO SCH ×2 (11:42→19:55)
[2016-06-01] MEDS: D5-1/2 NS + KCL 20 MEQ INJ 1,000 ML IV SCH (15:33)
[2016-06-01] MEDS ORDERED: traZODone HCL 100 MG TAB PO PRN (21:00)
[2016-06-01] MEDS: ENOXAPARIN SODIUM 40 MG/0.4 ML SYRINGE SQ SCH (22:58)
[2016-06-01] MEDS: LORazepam 2 MG/ML VIAL IV PUSH PRN (22:58)
[2016-06-02] VITALS: BP 132/70; PULSE 80; RESP 18; TEMP 98.9; O2SAT 96
[2016-06-02] MEDS: PIPERACIL-TAZO 3.375 GM PREMIX 50 ML IV SCH ×2 (01:55→05:41)
[2016-06-02 02:00] VITALS: PULSE 83
[2016-06-02] MEDS: D5-1/2 NS + KCL 20 MEQ INJ 1,000 ML IV SCH (03:31)
[2016-06-02] MEDS: MORPHINE SULFATE 4 MG/ML INJ IV PUSH PRN (03:32)
[2016-06-02 04:00] VITALS: BP 120/69; PULSE 82; RESP 18; TEMP 98.7; O2SAT 95
[2016-06-02] MEDS: RESP: ALBUTEROL 2.5 MG/IPRATROPIUM 0.5 MG NEB (SCH) NEB ×2 (04:00→09:30)
[2016-06-02] MEDS: CHLORHEXIDINE GLUCONATE 2 % 1 PACK (2 CLOTHS) TOP SCH (04:00)
[2016-06-02] MEDS: INSULIN NovoLIN REGULAR SUPPLEMENTAL SCALE SQ SCH ×2 (05:00→08:14)
[2016-06-02 05:06] LABS: BICARBONATE 24.3 MEQ/L (21.0-32.0); MAGNESIUM 2.1 MG/DL (1.5-2.5); POTASSIUM 3.6 MEQ/L (3.5-5.1)
[2016-06-02] MEDS: PANTOPRAZOLE SODIUM 40 MG VIAL IV PUSH SCH (05:41)
[2016-06-02 06:00] VITALS: PULSE 75
--- NOTE | 2016-06-02 07:32 | HHI.FF ---
Face to Face Verification Diagnosis: (1) Chronic pain (2) Altered mental status (3) Acute encephalopathy (4) Anxiety Home Health Nursing Order: Medical education I have seen patient Nidia Cortes on 06/02/16. My clinical findings support the need for the requested home health care services because: Med compliance is questionable I certify that my clinical findings support that this patient is homebound because: Impaired cognitive ability/safety Kira Dickens MD R3 Jun 02, 2016 07:32
[2016-06-02] MEDS ORDERED: K-PHTAB PO (07:53)
[2016-06-02 08:00] VITALS: BP 127/98; PULSE 90; RESP 26; TEMP 98.3; O2SAT 97
[2016-06-02] MEDS: CHLORHEXIDINE 0.12% (ORAL KIT) 15 ML CUP MT SCH (08:00)
[2016-06-02] MEDS ORDERED: HYDR-3288 PO (08:01)
[2016-06-02] MEDS ORDERED: DIAZ2TAB PO (08:01)
--- NOTE | 2016-06-02 08:07 | HHI.FPPN ---
Subjective Remarks Patient seen and examined. No acute events overnight. VSSAF. She states that she feels much better. Has been able to ambulate around the room and to the bedside commode. Denies any complaints this morning. Would like to go home if she can. (Kira Dickens MD R3) Objective Vitals Vital Signs Date Time Temp Pulse Resp B/P Pulse Ox O2 Delivery O2 Flow Rate FiO2 06/02/16 06:00 75 06/02/16 04:00 82 06/02/16 04:00 98.7 82 18 120/69 95 06/02/16 02:00 83 06/02/16 00:00 98.9 80 18 132/70 96 06/02/16 00:00 80 06/01/16 22:00 74 06/01/16 20:00 85 06/01/16 20:00 98.8 85 34 147/78 99 06/01/16 19:00 99 Room Air 06/01/16 18:00 84 06/01/16 16:00 76 06/01/16 16:00 98.8 76 20 131/63 97 06/01/16 14:00 79 06/01/16 12:00 98.8 75 19 145/67 97 06/01/16 12:00 75 06/01/16 10:00 86 06/01/16 08:00 80 06/01/16 08:00 99.0 80 27 137/66 98 I/O 06/01/16 06/01/16 06/01/16 06/02/16 06/02/16 06/02/16 07:00 15:00 23:00 07:00 15:00 23:00 Intake Total 847 ml 1275 ml 623 ml 591 ml Output Total 600 ml Balance 247 ml 1275 ml 623 ml 591 ml Intake Oral 120 ml 200 ml 50 ml 50 ml IV Total 727 ml 1075 ml 573 ml 541 ml Output Urine Total 600 ml # Voids 4 2 2 # Bowel Movements 0 4 2 0 (Kira Dickens MD R3) Result Diagram: 05/31/16 0345 06/02/16 0333 Imaging Last Impressions Upper Extremity Ultrasound 05/27/16 0000 Signed Impressions: Service Date/Time: Friday, May 27, 2016 14:26 - CONCLUSION: Negative for deep venous thrombosis. Julio Calvo MD FACR Brain MRI 05/27/16 0000 Signed Impressions: Service Date/Time: Friday, May 27, 2016 10:18 - CONCLUSION: 1. There is no evidence for acute infarction or ischemic changes. 2. Lacunar infarct on the right with some periventricular white matter changes. 3. There is no parenchymal hemorrhage. Julio Calvo MD FACR Head CT 05/26/16 1414 Signed Impressions: Service Date/Time: Thursday, May 26, 2016 14:22 - CONCLUSION: No acute intracranial disease. Amanuel Hill MD Chest X-Ray 05/26/161413 Signed Impressions: Service Date/Time: Thursday, May 26, 2016 15:07 - CONCLUSION: 1. Endotracheal tube in satisfactory position. Patchy left basilar airspace disease. Tomer Tan MD Neck CTA 05/26/16 0000 Signed Impressions: Service Date/Time: Thursday, May 26, 2016 14:43 - CONCLUSION: 1. CTA carotids within normal limits for age. Patient intubated. Multiple small thyroid nodules similar to prior chest CT from 2011. Tomer Tan MD Head/Neck CTA with Brain Perfusion 05/26/16 0000 Signed Impressions: Service Date/Time: Thursday, May 26, 2016 14:43 - CONCLUSION: Normal examination. Tomer Tan MD Head CTA 05/26/16 0000 Signed Impressions: Service Date/Time: Thursday, May 26, 2016 14:43 - CONCLUSION: Normal examination for a patient of this age. Tomer Tan MD Objective Remarks GENERAL: Very thin female in NAD SKIN: Warm and dry. HEAD: Normocephalic. Atraumatic EYES: Left eye covered. ENT: No nasal bleeding or discharge. Mucous membranes pink and moist. NECK: Trachea midline. CARDIOVASCULAR: Regular rate and rhythm, sinus rhythm on the monitor.. No murmurs rubs or gallops. RESPIRATORY: Breathing comfortably without accessory muscle use. Lungs clear to auscultation bilaterally GASTROINTESTINAL: Abdomen soft, non-tender, nondistended. Bowel sounds active. MUSCULOSKELETAL: Extremities without clubbing, cyanosis NEUROLOGICAL: No focal deficits. Moves all extremities. Normal speech. (Kira Dickens MD R3) A/P Assessment and Plan Patient is a 65 year old female who was admitted for AMS and respiratory failure. She is s/p extubation on 05/28. Mental status is back to baseline and patient appears to be doing well. Also found to have retinal detachment of left eye s/p repair on 05/30/16. Electrolytes have normalized s/p repletion. Patient is ready for discharge home. Discharge Planning Discharge home today given clinical improvement. Will need close follow up with PCP and repeat outpatient labs in 3-5 days. (Kira Dickens MD R3) Attending Attestation Patient seen and examined. Case reviewed and discussed with the resident team. Agree with plan of care as discussed with me and documented in the resident note. she is eager to go home and is improved with her electrolytes as she is eating better and taking her po meds. she may have had a low phos contributing to her confusion and even coma as she does not report overdosing on meds at home. ( Linda Acosta MD) Problem List: (1) Acute encephalopathy Status: Resolved Plan: Mental status is back to baseline. She is AAOx 3. Etiology of encephalopathy unclear but could be related to drug overdose. Patient stated that she was unsure if she took too much of her pain medications. Ammonia level : 17 on 05/26. UDS positive for BDZ and opiates. -Neurology consulted. Appreciated recs * Supportive care * Neuro checks - consulted to see if we can get home health care nursing to health with her medications. -Advised patient to only take 1/2 of Hydrocodone/Acetaminophen and 1mg of Diazepam prn. -Continue to monitor Imaging: * CT brain 05/26/16no acute abnormality * CTA brain and neck with perfusion 05/26/16normal * MRI brain: There is no evidence for acute infarction or ischemic changes. Lacunar infarct on the right with some periventricular white matter changes. No parenchymal hemorrhage. * EEG within normal. (2) Acute respiratory failure Status: Resolved Plan: Patient was intubated on admission and had suspect aspiration pneumonia as chest x-ray with left lower lobe opacity. Extubated on 05/29. Respiratory status improved and patient doing well. Suspect respiratory failure resulting form oversedation. -Completion of Zosyn 3.375mg IV Q6h x 7 days (05/26-06/02) (3) Retinal detachment Status: Acute Plan: s/p repair on 2/9. Clinically stable. Follow up with retina specialist as an outpatient. (4) Electrolyte abnormality Status: Resolved Plan: Potassium, calcium, and phosphorus WNL. -Continue Potassium Phosphorus 1000mg po BID and Calcium 500mg daily -Repeat labs in 3-5 days as outpatient (5) Postmenopausal osteoporosis Status: Chronic Plan: She has had Reclast which lasts for a year and can decide what she wants to do next year because she is concerned that it may be related to her retinal detachments (6) Cervical spondylitis with radiculitis Status: Chronic Plan: She has taken pain meds for quite some time. It has been made clear that she needs to be very careful mixing her narcotics, benzos and muscle relaxers. It was inadvertent on her part. Recommend decreasing narcotics from 7.5mg po Q6h prn to 1/2 of tablet Q6h prn. (7) Anxiety Status: Acute Plan: Decrease Diazepam from 2mg to 1mg QHS prn anxiety (8) GERD (gastroesophageal reflux disease) Status: Chronic Plan: History of esophageal stricture status post dilatation and diverticulosis. Had dark color aspirate from nasogastric tube several days ago; however no further episodes of GIB noted. H/H stable. -Continue home dose of Omeprazole -GI consulted: * no plan for endoscopy per GI. Could follow up as outpatient * GI has signed off -Colace 100 bid for bowel regimen. -Regular diet -Zofran prn nausea (9) Nutrition, metabolism, and development symptoms Status: Acute Plan: Diet: Regular as tolerated Fluids: HLIV Electrolytes: See plan above (Kira Dickens MD R3) Problem Qualifiers (1) Acute respiratory failure: Qualified Code: J96.01 - Acute respiratory failure with hypoxia and hypercapnia (2) GERD (gastroesophageal reflux disease): Qualified Code: K21.9 - Gastroesophageal reflux disease, esophagitis presence not specified Kira Dickens MD R3 Jun 02, 2016 08:07 Linda Acosta MD Jun 03, 2016 12:24
[2016-06-02] MEDS: CALCIUM CARBONATE 1.25 GM (CA 500 MG) TAB PO SCH (08:13)
[2016-06-02] MEDS: DOCUSATE SODIUM 100 MG/10 ML UDC TUBE SCH (08:14)
[2016-06-02] MEDS: POTASSIUM PHOSPHATE MONOBASIC 500 MG TAB PO SCH (08:14)
[2016-06-02] MEDS: SODIUM CHLORIDE 0.9% FLUSH 5 ML FLUSH IV FLUSH SCH (08:14)
[2016-06-02] MEDS: SODIUM PHOSPHATE INJ 30 MMOL in SODIUM CHLOR 0.9% 250 ML INJ 240 ML IV PRN (08:15)
--- NOTE | 2016-06-02 09:18 | HHI.DS ---
Kira Dickens MD R3 06/02/16 0918: Discharge Summary Admission Date May 26, 2016 at 17:17 Discharge Date: Jun 02, 2016 Admitting Diagnosis ams, COMA (1) Acute encephalopathy Diagnosis: Principal Plan: Mental status is back to baseline. She is AAOx 3. Etiology of encephalopathy unclear but could be related to drug overdose. Patient stated that she was unsure if she took too much of her pain medications. Ammonia level : 17 on 05/26. UDS positive for BDZ and opiates. -Neurology consulted. Appreciated recs * Supportive care * Neuro checks -CM consulted to see if we can get home health care nursing to health with her medications. -Advised patient to only take 1/2 of Hydrocodone/Acetaminophen and 1mg of Diazepam prn. -Continue to monitor Imaging: * CT brain 05/26/16no acute abnormality * CTA brain and neck with perfusion 05/26/16normal * MRI brain: There is no evidence for acute infarction or ischemic changes. Lacunar infarct on the right with some periventricular white matter changes. No parenchymal hemorrhage. * EEG within normal. (2) Acute respiratory failure Diagnosis: Principal Plan: Patient was intubated on admission and had suspect aspiration pneumonia as chest x-ray with left lower lobe opacity. Extubated on 05/29. Respiratory status improved and patient doing well. Suspect respiratory failure resulting form oversedation. -Completion of Zosyn 3.375mg IV Q6h x 7 days (05/26-06/02) (3) Retinal detachment Diagnosis: Principal Plan: s/p repair on 05/30. Clinically stable. Follow up with retina specialist as an outpatient. (4) Electrolyte abnormality Diagnosis: Principal Plan: Potassium, calcium, and phosphorus WNL. -Continue Potassium Phosphorus 1000mg po BID and Calcium 500mg daily -Repeat labs in 3-5 days as outpatient (5) Postmenopausal osteoporosis Plan: She has had Reclast which lasts for a year and can decide what she wants to do next year because she is concerned that it may be related to her retinal detachments (6) Cervical spondylitis with radiculitis Plan: She has taken pain meds for quite some time. It has been made clear that she needs to be very careful mixing her narcotics, benzos and muscle relaxers. It was inadvertent on her part. Recommend decreasing narcotics from 7.5mg po Q6h prn to 1/2 of tablet Q6h prn. (7) Anxiety Plan: Decrease Diazepam from 2mg to 1mg QHS prn anxiety (8) GERD (gastroesophageal reflux disease) Plan: History of esophageal stricture status post dilatation and diverticulosis. Had dark color aspirate from nasogastric tube several days ago; however no further episodes of GIB noted. H/H stable. -Continue home dose of Omeprazole -GI consulted: * no plan for endoscopy per GI. Could follow up as outpatient * GI has signed off -Colace 100 bid for bowel regimen. -Regular diet -Zofran prn nausea (9) Nutrition, metabolism, and development symptoms Plan: Diet: Regular as tolerated Fluids: HLIV Electrolytes: See plan above Consultants CC: Dr. Amezquita GI: Dr. Banegas Neurology: Dr. Perez CBC/BMP: 05/31/16 0345 06/02/16 0333 Significant Findings Laboratory Tests Test 05/30/16 05/31/16 05/31/16 06/01/16 10:20 03:45 19:36 04:29 Hemoglobin 11.4 GM/DL (11.6-15.3) Hematocrit 34.3 % (35.0-46.0) Neutrophils (%) (Auto) 75.6 % 76.5 % (16.0-70.0) (16.0-70.0) Lymphocytes # (Auto) 0.6 TH/MM3 (1.0-4.8) Chloride Level 112 MEQ/L 110 MEQ/L 109 MEQ/L (98-107) (98-107) (98-107) Blood Urea Nitrogen 3 MG/DL (7-18) 4 MG/DL (7-18) 3 MG/DL (7-18) Random Glucose 126 MG/DL (74-106) Calcium Level 7.8 MG/DL 7.3 MG/DL 7.1 MG/DL (8.5-10.1) (8.5-10.1) (8.5-10.1) Phosphorus Level 1.6 MG/DL 1.2 MG/DL 1.7 MG/DL (2.5-4.9) (2.5-4.9) (2.5-4.9) Albumin 3.0 GM/DL (3.4-5.0) Carbon Dioxide Level 20.6 MEQ/L (21.0-32.0) Protein Corrected Calcium 7.8 MG/DL 7.8 MG/DL (8.5-10.1) (8.5-10.1) Total Protein 6.1 GM/DL 5.7 GM/DL (6.4-8.2) (6.4-8.2) Potassium Level 3.1 MEQ/L (3.5-5.1) Creatinine 0.42 MG/DL (0.50-1.00) Test 06/01/16 06/02/16 11:16 03:33 Phosphorus Level 1.4 MG/DL (2.5-4.9) 25-Hydroxy Vitamin D Total 21.4 ng/ML (30-100) Chloride Level 110 MEQ/L (98-107) Blood Urea Nitrogen 3 MG/DL (7-18) Creatinine 0.48 MG/DL (0.50-1.00) Calcium Level 8.0 MG/DL (8.5-10.1) Imaging Upper Extremity Ultrasound 05/27/16 Signed Impressions: Service Date/Time: Friday, May 27, 2016 14:26 - CONCLUSION: Negative for deep venous thrombosis. Julio Calvo MD FACR Brain MRI 05/27/16 Signed Impressions: Service Date/Time: Friday, May 27, 2016 10:18 - CONCLUSION: 1. There is no evidence for acute infarction or ischemic changes. 2. Lacunar infarct on the right with some periventricular white matter changes. 3. There is no parenchymal hemorrhage. Julio Calvo MD FACR Head CT 05/26/161413 Signed Impressions: Service Date/Time: Thursday, May 26, 2016 14:22 - CONCLUSION: No acute intracranial disease. Amanuel Hill MD Chest X-Ray 05/26/161413 Signed Impressions: Service Date/Time: Thursday, May 26, 2016 15:07 - CONCLUSION: 1. Endotracheal tube in satisfactory position. Patchy left basilar airspace disease. Tomer Tan MD Neck CTA 05/26/16 0000 Signed Impressions: Service Date/Time: Thursday, May 26, 2016 14:43 - CONCLUSION: 1. CTA carotids within normal limits for age. Patient intubated. Multiple small thyroid nodules similar to prior chest CT from 2011. Tomer Tan MD Head/Neck CTA with Brain Perfusion 05/26/16 0000 Signed Impressions: Service Date/Time: Thursday, May 26, 2016 14:43 - CONCLUSION: Normal examination. Tomer Tan MD Head CTA 05/26/16 0000 Signed Impressions: Service Date/Time: Thursday, May 26, 2016 14:43 - CONCLUSION: Normal examination for a patient of this age. Tomer Tan MD PE at Discharge GENERAL: Very thin female in NAD SKIN: Warm and dry. HEAD: Normocephalic. Atraumatic EYES: Left eye covered. ENT: No nasal bleeding or discharge. Mucous membranes pink and moist. NECK: Trachea midline. CARDIOVASCULAR: Regular rate and rhythm, sinus rhythm on the monitor.. No murmurs rubs or gallops. RESPIRATORY: Breathing comfortably without accessory muscle use. Lungs clear to auscultation bilaterally GASTROINTESTINAL: Abdomen soft, non-tender, nondistended. Bowel sounds active. MUSCULOSKELETAL: Extremities without clubbing, cyanosis NEUROLOGICAL: No focal deficits. Moves all extremities. Normal speech. Hospital Course Ms. Cortes is a 65 year old male who was admitted to the critical care service on 05/26/16 for acute encephalopathy, respiratory failure, and aspiration pneumonia. She was intubated and started on Zosyn on admission. CT head and neck were normal. MRI was negative for acute changes. Neurology was consulted and recommended supportive care. Encephalopathy and respiratory failure were thought to be related to unintentional medication overdose (benzos and narcotics ). Altered mental status and clinical status improved; patient was extubated on 05/29. In addition, ophthalmology was consulted for retinal detachment of left eye during this hospitalization. She underwent repair on 05/31. Patient tolerated surgery well and continued to improved. Her electrolytes (calcium, potassium, and phosphorus) needed to be replaced several times during hospitalization. Etiology for electrolyte abnormalities were unclear; however thought to be related to AMS. On 06/02/16, patient was deemed stable for discharge home with home health services. She will need to follow up with pcp and repeat labs as outpatient within one week. Pt Condition on Discharge: Stable Discharge Disposition: Discharge Home Discharge Instructions DIET: Follow Instructions for: As Tolerated, No Restrictions Activities you can perform: Regular-No Restrictions Follow up Referrals: PCP Follow-up - 1 Week with Marisela Nicolas MD R1 New Orders: BASIC METABOLIC PROF - 3-5 Days MAGNESIUM (MG) - 3-5 Days PHOSPHORUS (PO4) - 3-5 Days New Medications: Potassium Phosphate Monobasic (K-Phos) 500 Mg Tab 1000 MG PO Q12HR #120 Ref 0 TAB Changed Medications: Diazepam (Diazepam) 2 Mg Tab 1 MG PO HS PRN ANXIETY #30 Ref 0 TAB (Changed from: 2 MG) Hydrocodone-Acetaminophen (Caraway) 7.5-325 mg Tab 0.5 TAB PO Q6H PRN PAIN #30 Ref 0 TAB (Changed from: 1 TAB) Continued Medications: Acetaminophen-Codeine (Tylenol-Codeine #3) 300-30 mg Tab 1 TAB PO Q4-6H PRN PAIN Ref 0 TAB Calcium (Calcium) 500 Mg Tab 500 MG PO DAILY TAB Latanoprost Opth Drops (Latanoprost Opth Drops) 0.005% Drops 1 DROP EACH EYE HS Refrigerate until opened. Glaucoma #2.5 Ref 0 ML Omeprazole (Omeprazole) 20 Mg Tab 20 MG PO DAILY #30 Ref 0 TAB Tizanidine (Tizanidine) 4 Mg Cap 2 MG PO Q6HR Muscle Spasm Ref 0 CAP Trazodone (Trazodone) 100 Mg Tab 100 MG PO HS PRN SLEEP #30 Ref 0 TAB Vitamin D & K (K2 Plus D3 100-1000 Mcg-Unit) 1 Tab Tab 1 TAB PO HS Zoledronic Acid Inj (Reclast Inj) 5 Mg/100 Ml Inj 5 MG IV Q365D #1 Ref 0 BAG Zolpidem (Zolpidem) 10 Mg Tab 10 MG PO HS PRN INSOMNIA Ref 0 TAB Discontinued Medications: Paroxetine (Paroxetine) 30 Mg Tab 30 MG PO DAILY Take one in AM daily. #30 Ref 3 TAB Sertraline (Sertraline) 50 Mg Tab 50 MG PO DAILY #30 Ref 0 TAB Linda Acosta MD 06/13/16 0745: Discharge Summary CBC/BMP: 05/31/16 0345 06/02/16 0333 Discharge Instructions Follow up Referrals: PCP Follow-up - 1 Week with Marisela Nicolas MD R1 New Orders: BASIC METABOLIC PROF - 3-5 Days MAGNESIUM (MG) - 3-5 Days PHOSPHORUS (PO4) - 3-5 Days New Medications: Potassium Phosphate Monobasic (K-Phos) 500 Mg Tab 1000 MG PO Q12HR #120 Ref 0 TAB Changed Medications: Diazepam (Diazepam) 2 Mg Tab 1 MG PO HS PRN ANXIETY #30 Ref 0 TAB (Changed from: 2 MG) Hydrocodone-Acetaminophen (Caraway) 7.5-325 mg Tab 0.5 TAB PO Q6H PRN PAIN #30 Ref 0 TAB (Changed from: 1 TAB) Continued Medications: Acetaminophen-Codeine (Tylenol-Codeine #3) 300-30 mg Tab 1 TAB PO Q4-6H PRN PAIN Ref 0 TAB Calcium (Calcium) 500 Mg Tab 500 MG PO DAILY TAB Latanoprost Opth Drops (Latanoprost Opth Drops) 0.005% Drops 1 DROP EACH EYE HS Refrigerate until opened. Glaucoma #2.5 Ref 0 ML Omeprazole (Omeprazole) 20 Mg Tab 20 MG PO DAILY #30 Ref 0 TAB Tizanidine (Tizanidine) 4 Mg Cap 2 MG PO Q6HR Muscle Spasm Ref 0 CAP Trazodone (Trazodone) 100 Mg Tab 100 MG PO HS PRN SLEEP #30 Ref 0 TAB Vitamin D & K (K2 Plus D3 100-1000 Mcg-Unit) 1 Tab Tab 1 TAB PO HS Zoledronic Acid Inj (Reclast Inj) 5 Mg/100 Ml Inj 5 MG IV Q365D #1 Ref 0 BAG Zolpidem (Zolpidem) 10 Mg Tab 10 MG PO HS PRN INSOMNIA Ref 0 TAB Discontinued Medications: Paroxetine (Paroxetine) 30 Mg Tab 30 MG PO DAILY Take one in AM daily. #30 Ref 3 TAB Sertraline (Sertraline) 50 Mg Tab 50 MG PO DAILY #30 Ref 0 TAB Additional Information She could have been low on her phos as bisphosphonates especially the once a year type can result in low K and low phos in more than 10% which can lead to obtundation or even coma Kira Dickens MD R3 Jun 02, 2016 09:18 Linda Acosta MD Jun 13, 2016 09:45
[2016-06-02 10:00] VITALS: PULSE 80
[2016-06-12] MEDS ORDERED: NYST15T TOPICAL (16:39)
[2016-07-08] MEDS ORDERED: DIAZ2TAB PO ×2 (14:17→14:19)
[2016-07-08] MEDS ORDERED: NYST15T TOPICAL (14:17)
[2016-07-08] MEDS ORDERED: PARO10TA2 PO (14:18)
[2016-07-09] MEDS ORDERED: HYDR-3580 PO (08:49)
[2016-07-09] MEDS ORDERED: EYE EACH EYE ×2 (08:49)
[2016-08-01] MEDS ORDERED: PNEU13P IM (15:46)
[2016-08-01] MEDS ORDERED: PNEU25IN IM (15:54)
== END 2016-06-02 13:00 | disposition home or self-care (01) | DRG 907 ==
LOC: NEPC 14:02 → NEDA 17:17 → HIMW 05-27 00:50
PROVIDERS: ADMIT Internal Medicine Critical Care Medicine; ATTEND Internal Medicine Critical Care Medicine
PROC: 5A1945Z Respiratory Ventilation, 24-96 Consecutive Hours (ICD-10-PCS; 2016-05-26)
PROC: 3E0C3GC Introduction of Other Therapeutic Substance into Eye, Percutaneous Approach (ICD-10-PCS; 2016-05-30)
PROC: 08QF3ZZ Repair Left Retina, Percutaneous Approach (ICD-10-PCS; 2016-05-30)
PROC: 08N53ZZ Release Left Vitreous, Percutaneous Approach (ICD-10-PCS; principal; 2016-05-30 13:35)
DX: T40.601A Poisoning by unspecified narcotics, accidental (unintentional), initial encounter (principal); J96.02 Acute respiratory failure with hypercapnia; J69.0 Pneumonitis due to inhalation of food and vomit; G93.40 Encephalopathy, unspecified; J96.01 Acute respiratory failure with hypoxia; R56.9 Unspecified convulsions; E87.2 Acidosis; K22.2 Esophageal obstruction; H33.22 Serous retinal detachment, left eye; T42.4X1A Poisoning by benzodiazepines, accidental (unintentional), initial encounter; K21.0 Gastro-esophageal reflux disease with esophagitis; M54.12 Radiculopathy, cervical region; H40.9 Unspecified glaucoma; E87.6 Hypokalemia; E16.2 Hypoglycemia, unspecified; M81.0 Age-related osteoporosis without current pathological fracture; M46.92 Unspecified inflammatory spondylopathy, cervical region; R40.2430 Glasgow coma scale score 3-8, unspecified time; E83.39 Other disorders of phosphorus metabolism; G89.29 Other chronic pain; F41.9 Anxiety disorder, unspecified
CPT/HCPCS: 0042T; 31500; 36600; 51702; 70450; 70496; 70498; 70553; 71010; 76937; 80048; 80053; 80307; 80320; 80329; 81001; 82140; 82306; 82550; 82607; 82805; 82948; 83605; 83735; 84100; 84132; 84155; 84443; 84484; 85014; 85018; 85025; 85027; 85610; 85730; 87040; 87641; 93005; 93971; 94002; 94003; 94150; 94640; 94664; 95819; 96361; 96374; A9579; C9113; G0480; J0171; J0330; J0690; J1100; J1650; J2060; J2270; J2370; J2405; J2543; J3010; J3300; J3480; J7030; J7050; J7120; Q9967

== ENCOUNTER 2016-06-27 12:53 | Emergency (ER) | payer MEDICARE, MEDICAID, OTHER ==
[~2016-06-27] VITALS: Ht 180.3 cm; Wt 60.0 kg
[~2016-06-27 12:53] MED LIST changes: +CALC500T42 PO; -CALCCHW25 CHEW; +HYDR-3288 PO; -HYDR1SOL3 PO; +K-PHTAB PO; +NYST15T TOPICAL; +OMEP20TA PO; -PARO30TA2 PO; -TIZA4CAP3 PO; +TRAZ100T4 PO; -TYLETAB34 PO; +VITA1TAB6 PO; -ZOLE5INJ IV
[2016-06-27 12:56] VITALS: BP 146/73; PULSE 71; RESP 18; TEMP 98.1; O2SAT 99
--- NOTE | 2016-06-27 15:54 | PD ---
HPI Chief Complaint: Eye Problems/Injury Time Seen by Provider: 15:50 Travel History International Travel<30 days: No Contact w/Intl Traveler<30days: No Traveled to known affect area: No History of Present Illness HPI 65-year-old female presents the emergency Department with new onset weakness in the right eye with decreased motility and "wandering eye laterally" which started approximately 3 days ago. Patient was seen by Dr. Felton, the animal ride manager earlier today and referred here for further evaluation and treatment. She has a significant medical history of being hospitalized for change in mental status last month with need for neurological evaluation as well as retinal detachment. Patient states she does have a mild 4/10 headache which is typical for her, but has noticed increased difficulty focusing, feeling like she is "looking through a kaleidoscope". These visual changes are intermittent and change through the day. Patient denies any other neurological focal finding. Patient is allergic to corticosteroids. PFSH Past Medical History Arthritis: Yes Asthma: Yes Autoimmune Disease: No Anxiety: Yes Cancer: No Cardiovascular Problems: No High Cholesterol: No Chemotherapy: No COPD: No Cerebrovascular Accident: No Diabetes: No Diminished Hearing: No Diverticulitis: Yes Endocrine: No Gastrointestinal Disorders: Yes (ESOPHAGEAL STRICTURES,DIVERTICULITS) GERD: Yes Genitourinary: No Headaches: Yes Hepatitis: No Hiatal Hernia: No Heparin Induced Thrombocytopen: No Hypertension: No Immune Disorder: No Implanted Vascular Access Dvce: No Kidney Stones: No Musculoskeletal: Yes (PINCHED NERVE ON SPINAL CORD AND NECK- CHRONIC BACK/NECK PAIN) 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) Psychiatric: Yes (PANIC ATTACKS) Reproductive: No Respiratory: Yes (SEVERAL EPISODES PLEURISY) Immunizations Current: No Migraines: Yes Radiation Therapy: No Renal Failure: No Seizures: No Sickle Cell Disease: No Sleep Apnea: No Thyroid Disease: No Ulcer: No PNEUMOCCOCAL Vaccine (Year): 2 ?: Not Menopausal: Yes Past Surgical History Abdominal Surgery: No AICD: No Cardiac Surgery: No Ear Surgery: No Endocrine Surgery: No Eye Surgery: Yes (BILATERAL LENS IMPLANTS, RIGHT LASER FOR DETACHED RETINA) Genitourinary Surgery: No Gynecologic Surgery: No Joint Replacement: No Neurologic Surgery: No Oral Surgery: Yes (LOWER JAW OSTEOTOMY) Pacemaker: No Thoracic Surgery: No Other Surgery: Yes (EPIGASTRIG STRETCHING-SEVERAL TIMES) Social History Alcohol Use: No Tobacco Use: No Substance Use: No Allergies-Medications (Allergen,Severity, Reaction): Coded Allergies: Corticosteroids (Verified Allergy, Severe, Anaphylaxis, 06/27/16) Reported Meds & Prescriptions Reported Meds & Active Scripts Active Nystatin Topical (Nystatin) 100,000 unit/gm Cream 1 Applic TOPICAL BID Ray (Hydrocodone-Acetaminophen) 7.5-325 mg Tab 0.5 Tab PO Q6H PRN Diazepam 2 Mg Tab 1 Mg PO HS PRN K-Phos (Potassium Phosphate Monobasic) 500 Mg Tab 1,000 Mg PO Q12HR Reclast Inj (Zoledronic Acid) 5 Mg/100 Ml Inj 5 Mg IV Q365D Reported Omeprazole 20 Mg Tab 20 Mg PO DAILY Trazodone (Trazodone HCl) 100 Mg Tab 100 Mg PO HS PRN K2 Plus D3 100-1000 Mcg-Unit (Vitamin D & K) 1 Tab Tab 1 Tab PO HS Calcium 500 Mg Tab 500 Mg PO DAILY Zolpidem (Zolpidem Tartrate) 10 Mg Tab 10 Mg PO HS PRN Latanoprost Opth Drops (Latanoprost) 0.005% Drops 1 Drop EACH EYE HS Refrigerate until opened. Review of Systems Except as stated in HPI: all other systems reviewed are Neg General / Constitutional: No: Fever Eyes: Positive: Diploplia, Visual changes, No: Blurred Vision, Photophobia, Drainage, Redness, Foreign Body Sensation, Pain, Tearing, Blind Spots, Blindness HENT: Positive: Headaches (for 10. See history present illness.), No: Vertigo , Lightheadedness, Sore Throat, Rhinitis, Rhinorrhea Cardiovascular: No: Chest Pain or Discomfort Respiratory: No: Shortness of Breath Gastrointestinal: No: Abdominal Pain Genitourinary: No: Dysuria Musculoskeletal: No: Pain Skin: No Rash Neurologic: No: Weakness Psychiatric: No: Depression Endocrine: No: Polydipsia Hematologic/Lymphatic: No: Easy Bruising Physical Exam Narrative GENERAL: Patient appears distress. SKIN: Warm and dry. Normal color. Normal turgor. HEAD: Atraumatic. Normocephalic. EYES: Pupils are unequal secondary to previous ophthalmic surgeries. No scleral icterus. No injection or drainage. Ocular motion seems delayed in the right eye laterally, and with ocular motions laterally the eye tends to lag on the right compared to the left. ENT: No nasal bleeding or discharge. Mucous membranes pink and moist. Pharynx is normal. NECK: Trachea midline. No JVD. Neck is supple. CARDIOVASCULAR: Regular rate and rhythm. RESPIRATORY: No accessory muscle use. Clear to auscultation. Breath sounds equal bilaterally. GASTROINTESTINAL: Abdomen soft, non-tender, nondistended. Hepatic and splenic margins not palpable. MUSCULOSKELETAL: Extremities without clubbing, cyanosis, or edema. No obvious deformities. NEUROLOGICAL: Awake and alert. No obvious cranial nerve deficits. Motor grossly within normal limits. Five out of 5 muscle strength in the arms and legs. Normal speech. PSYCHIATRIC: Appropriate mood and affect; insight and judgment normal. Data Data Last Documented VS Vital Signs Date Time Temp Pulse Resp B/P Pulse Ox O2 Delivery O2 Flow Rate FiO2 06/27/16 12:56 98.1 71 18 146/73 99 Orders Acetamin-Hydrocod 325-5 Mg (Ray 5-325 (06/27/16 16:00) Mri Brain W&W/O Contrast (06/27/16 ) [facility] Medical Decision Making Medical Screen Exam Complete: Yes Emergency Medical Condition: Yes Differential Diagnosis Double vision. Changes in ocular motion on one eye. Intracranial bleed. Tumor. Narrative Course Patient is medically stable at time of exam. Patient discussed with Dr. Tan, the radiologist recommends MRI of the brain with and without contrast. Patient is given Lortab 5/325 for her headache. Patient is awaiting medical bed placement. Condition: Stable Seferino Peterson Jun 27, 2016 15:54
[2016-06-27] MEDS ORDERED: ACETAMINOPHEN/HYDROcodone 325 MG/5 MG TAB PO ONE (16:00)
[2016-06-27] MEDS ORDERED: GADODIAMIDE PF 287 MG/ML 5 ML VIAL (for RAD MRI) IV ONE (17:45)
--- NOTE | 2016-06-27 17:58 | RADRPT ---
EXAM DATE/TIME: 06/27/2016 17:17 [facility] COMPARISON: MRI BRAIN W & W/O CONTRAST, May 27, 2016, 10:18. INDICATIONS : Double vision in right eye. CONTRAST: 12 cc Omniscan (gadodiamide) IV MEDICAL HISTORY : None. SURGICAL HISTORY : Right knee, left shoulder, left heal, jaw, retinal detachment left eye, vitrectomy and esophageal dil ation. ENCOUNTER: Initial ACUITY: 1 day PAIN SCORE: 0/10 LOCATION: Head. TECHNIQUE: Multiplanar, multisequence MRI of the brain was performed both prior to and following the administrat ion of paramagnetic contrast. FINDINGS: MRI of the brain is performed in sagittal, axial and coronal planes. The craniocervical junction and midline structures are unremarkable. Diffusion weighted images demonstrate no abnormality. There is n o evidence of acute cortical infarction, acute hemorrhage, mass effect or midline shift is seen. Foll owing the administration of contrast no abnormal enhancement is identified. There is benign mucosal d isease in the ethmoid air cells bilaterally Posterior fossa structures are unremarkable. CONCLUSION: 1. No evidence of acute intracranial pathology. No masses are identified. Jered Martinez MD on June 27, 2016 at 17:54 Board Certified Radiologist. This report was verified electronically.
--- NOTE | 2016-06-27 18:21 | PD ---
Data Data Last Documented VS Vital Signs Date Time Temp Pulse Resp B/P Pulse Ox O2 Delivery O2 Flow Rate FiO2 06/27/16 12:56 98.1 71 18 146/73 99 Orders Acetamin-Hydrocod 325-5 Mg ([place] 5-325 (06/27/16 16:00) Mri Brain W&W/O Contrast (06/27/16 ) Gadodiamide Pf Inj (Omniscan Pf Inj) (06/27/16 17:45) Morphine Inj (Morphine Inj) (06/27/16 18:30) MDM Supervised Visit with TRISTAN: Yes Narrative Course I, Dr. Lopez, have reviewed the advance practice practitioner's documentation and am in agreement, met with the patient face to face, made the diagnosis, and the medical decision making was done by me. See his note for further details. Briefly this is a 65-year-old female who was admitted last month for metabolic encephalopathy. At that time she had a left retinal detachment that was repaired while in the hospital. 4 days ago the patient began experiencing double vision and feeling as though she is walking through a maze. History of retinal detachment on the right eyes well with surgical and laser repair. She went to her clinical esthetician office today, and he was concerned about her wandering right eye. Patient denies any focal neurologic deficits. She is having a slight headache and complains of chronic neck pain. On exam she has normal range of motion in all of her extremities and normal muscle strength and sensation in all of her extremities. Extraocular movements are intact. Left pupil is 6 mm, right pupil is 3 mm. The patient reports that she had her left eye dilated today by her clinical esthetician. Vital signs show heart rate 71, blood pressure 146/73, pulse ox 99% on room air, oral temperature 98.1F. MRI brain with and without contrast shows no evidence of acute intracranial pathology. No masses are identified. The patient was made aware of all findings. At this point I believe the patient can be further worked up as an outpatient. I have advised her to follow-up with her clinical esthetician. I will also give her the name of the neurologist bacon skin lifter with him to follow-up with. She was informed on when to return to the emergency department. She verbalizes understanding and agreement with plan. Diagnosis Primary Impression: Visual disturbance Referrals: Calvin Burk PhD, MD 3 days Neurologist [employer] 3 days Additional Instruction: Follow-up with your clinical esthetician this week. Follow-up with neurologist Dr. Burk or a neurologist of your choice this week. Return to the emergency department for worsening symptoms or any other concerns as discussed. Disposition: 01 DISCHARGE HOME Condition: Stable Giuseppe Lopez MD Jun 27, 2016 18:21
[2016-06-27] MEDS ORDERED: MORPHINE SULFATE 4 MG/ML INJ IM ONE (18:30)
[2016-07-08] MEDS ORDERED: NYST15T TOPICAL (14:17)
[2016-07-08] MEDS ORDERED: DIAZ2TAB PO ×2 (14:17→14:19)
[2016-07-08] MEDS ORDERED: PARO10TA2 PO (14:18)
[2016-07-09] MEDS ORDERED: HYDR-3580 PO (08:49)
[2016-07-09] MEDS ORDERED: EYE EACH EYE ×2 (08:49)
[2016-08-01] MEDS ORDERED: PNEU13P IM (15:46)
[2016-08-01] MEDS ORDERED: PNEU25IN IM (15:54)
== END 2016-06-28 07:52 | disposition home or self-care (01) ==
LOC: NEPE 12:53
DX: H53.9 Unspecified visual disturbance (principal); Z86.69 Personal history of other diseases of the nervous system and sense organs; Z87.898 Personal history of other specified conditions; Z96.1 Presence of intraocular lens
CPT/HCPCS: 70553; 99283; A9579

== ENCOUNTER 2016-09-12 13:22 | Observation (INO) | payer MEDICARE, OTHER ==
[~2016-09-12] VITALS: Ht 180.3 cm; Wt 72.3 kg
[~2016-09-12 13:22] MED LIST changes: +EYE EACH EYE; -HYDR-3288 PO; +HYDR-3580 PO; -NYST15T TOPICAL; -OMEP20TA PO; +PARO10TA2 PO; -TRAZ100T4 PO; -ZOLP10TA3 PO
[2016-09-12 13:29] VITALS: BP 155/87; PULSE 75; RESP 18; TEMP 97.9; O2SAT 100
[2016-09-12 13:39] VITALS: BP 155/87; PULSE 77; RESP 18; O2SAT 99
--- NOTE | 2016-09-12 13:42 | PD ---
HPI Chief Complaint: General Weakness Time Seen by Provider: 14:20 Travel History International Travel<30 days: No Contact w/Intl Traveler<30days: No Traveled to known affect area: No History of Present Illness HPI 66-year-old female presents via EMS for evaluation. The patient reports that 2 days ago she was walking inside of her house when she became dizzy and fell. She reports that that is lasting that she remembers. She wasn't aware that today was , she thought that it was Friday. She has had amnesia in regards to the events of the past 2 days. Today she called her neighbor who initially helped her back in the bed after her likely syncopal episode 2 days ago. Neighbor called EMS who brought her here. The patient is complaining of global amnesia of the past 2 days as well as generalized pain all over. Focally she is having pain in her right third finger, right foot with associated bruising, likely from the fall. She also has a headache, chronic neck pain. 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 She takes Lortab on a daily basis for chronic neck pain, diazepam for anxiety, ambien to help her sleep. Last week she was prescribed a muscle relaxer of which she does not remember the name, she has been using it as prescribed. She does endorse some diarrhea episodes over the past week. She has no other focal complaints at this time. [facility] Past Medical History Arthritis: Yes Asthma: Yes Autoimmune Disease: No Anxiety: Yes Cancer: No Cardiovascular Problems: No High Cholesterol: No Chemotherapy: No COPD: No Cerebrovascular Accident: No Diabetes: No Diminished Hearing: No Diverticulitis: Yes Endocrine: No Gastrointestinal Disorders: Yes (ESOPHAGEAL STRICTURES,DIVERTICULITS) GERD: Yes Genitourinary: No Headaches: Yes Hepatitis: No Hiatal Hernia: No Heparin Induced Thrombocytopen: No Hypertension: No Immune Disorder: No Implanted Vascular Access Dvce: No Kidney Stones: No Musculoskeletal: Yes (PINCHED NERVE ON SPINAL CORD AND NECK- CHRONIC BACK/NECK PAIN) 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) Psychiatric: Yes (PANIC ATTACKS) Reproductive: No Respiratory: Yes (SEVERAL EPISODES PLEURISY) Immunizations Current: No Migraines: Yes Radiation Therapy: No Renal Failure: No Seizures: No Sickle Cell Disease: No Sleep Apnea: No Thyroid Disease: No Ulcer: No PNEUMOCCOCAL Vaccine (Year): 2 Menopausal: Yes Past Surgical History Abdominal Surgery: No AICD: No Cardiac Surgery: No Ear Surgery: No Endocrine Surgery: No Eye Surgery: Yes (BILATERAL LENS IMPLANTS, RIGHT LASER FOR DETACHED RETINA) Genitourinary Surgery: No Gynecologic Surgery: No Joint Replacement: No Neurologic Surgery: No Oral Surgery: Yes (LOWER JAW OSTEOTOMY) Pacemaker: No Thoracic Surgery: No Other Surgery: Yes (EPIGASTRIG STRETCHING-SEVERAL TIMES) Social History Alcohol Use: No Tobacco Use: No Substance Use: No Allergies-Medications (Allergen,Severity, Reaction): Coded Allergies: Corticosteroids (Verified Allergy, Severe, Anaphylaxis, 09/12/16) Reported Meds & Prescriptions Reported Meds & Active Scripts Active Diazepam 2 Mg Tab 3 Tab PO DAILY PRN Take 1/2 tab one to two times during the day, as needed for anxiety. Take 1-2 tabs at bedtime as needed for sleep. Reported Ambien (Zolpidem Tartrate) 5 Mg Tab 5 Mg PO HS PRN Hydrocodone-Acetaminophen 7.5-325 mg Tab 0.5 Tab PO BID PRN Latanoprost Opth Drops (Latanoprost) 0.005% Drops 1 Drop EACH EYE HS Refrigerate until opened. Review of Systems Except as stated in HPI: all other systems reviewed are Neg Physical Exam Narrative GENERAL: Chronically ill-appearing female who is in no acute distress, answering questions appropriately and responding to commands appropriately. SKIN: Warm and dry. Change in right third finger, contusion right foot. HEAD: Atraumatic. Normocephalic. EYES: Pupils equal and round. No scleral icterus. No injection or drainage. ENT: No nasal bleeding or discharge. Mucous membranes pink and moist. NECK: Trachea midline. No JVD. CARDIOVASCULAR: Regular rate and rhythm. No murmur appreciated. RESPIRATORY: No accessory muscle use. Clear to auscultation. Breath sounds equal bilaterally. GASTROINTESTINAL: Abdomen soft, generalized tenderness to palpation without guarding MUSCULOSKELETAL: No obvious deformities. No clubbing. No cyanosis. No edema. NEUROLOGICAL: Awake and alert. No obvious cranial nerve deficits. Motor grossly within normal limits. Normal speech. PSYCHIATRIC: Appropriate mood and affect; insight and judgment normal. Data Data Last Documented VS Vital Signs Date Time Temp Pulse Resp B/P Pulse Ox O2 Delivery O2 Flow Rate FiO2 09/12/16 15:42 81 18 154/77 98 Room Air 09/12/16 13:29 97.9 Orders Electrocardiogram (09/12/16 13:39) Ammonia (09/12/16 13:39) Complete Blood Count With Diff (09/12/16 13:39) Comprehensive Metabolic Panel (09/12/16 13:39) Creatine Kinase (Cpk) (09/12/16 13:39) Prothrombin Time / Inr (Pt) (09/12/16 13:39) Act Partial Throm Time (Ptt) (09/12/16 13:39) Troponin I (09/12/16 13:39) Urinalysis - C+S If Indicated (09/12/16 13:39) Chest, Single Ap (09/12/16 13:39) Blood Glucose (09/12/16 13:39) Ecg Monitoring (09/12/16 13:39) Iv Access Insert/Monitor (09/12/16 13:39) Oximetry (09/12/16 13:39) Sodium Chloride 0.9% Flush (Ns Flush) (09/12/16 13:45) Finger ([id number]) (09/12/16 ) Foot, Complete ([id number]) (09/12/16 ) Ct Abd/Pel W Iv Contrast(Rout) (09/12/16 13:46) Drug Screen, Random Urine (09/12/16 13:47) Tylenol (Acetaminophen) (09/12/16 14:05) Salicylates (Aspirin) (09/12/16 14:05) CKMB (09/12/16 13:45) CKMB% (09/12/16 13:45) Ct Brain W/O Iv Contrast(Rout) (09/12/16 15:42) Iohexol 350 Inj (Omnipaque 350 Inj) (09/12/16 15:55) Metronidazole 500 Mg Inj (Flagyl 500 Mg (09/12/16 16:15) Ciprofloxacin 400 Mg Premix (Cipro 400 M (09/12/16 16:15) Sodium Chlor 0.9% 1000 Ml Inj (Ns 1000 M (09/12/16 16:22) Potassium Chloride (Kcl) (09/12/16 16:30) Potassium Chloride Powder (Kcl Powder) (09/12/16 16:30) Admit Order (Ed Use Only) (09/12/16 16:44) Labs Laboratory Tests Test 09/12/16 09/12/16 09/12/16 09/12/16 13:35 13:45 14:36 14:42 Ammonia 13 MCMOL/L White Blood Count 9.1 TH/MM3 Red Blood Count 4.77 MIL/MM3 Hemoglobin 13.6 GM/DL Hematocrit 39.8 % Mean Corpuscular Volume 83.4 FL Mean Corpuscular Hemoglobin 28.5 PG Mean Corpuscular Hemoglobin 34.1 % Concent Red Cell Distribution Width 14.0 % Platelet Count 226 TH/MM3 Mean Platelet Volume 8.8 FL Neutrophils (%) (Auto) 76.6 % Lymphocytes (%) (Auto) 16.1 % Monocytes (%) (Auto) 5.9 % Eosinophils (%) (Auto) 0.8 % Basophils (%) (Auto) 0.6 % Neutrophils # (Auto) 7.0 TH/MM3 Lymphocytes # (Auto) 1.5 TH/MM3 Monocytes # (Auto) 0.5 TH/MM3 Eosinophils # (Auto) 0.1 TH/MM3 Basophils # (Auto) 0.1 TH/MM3 CBC Comment DIFF FINAL Differential Comment Prothrombin Time 10.5 SEC Prothromb Time International 1.0 RATIO Ratio Activated Partial 20.5 SEC Thromboplast Time Sodium Level 143 MEQ/L Potassium Level 3.3 MEQ/L Chloride Level 110 MEQ/L Carbon Dioxide Level 22.2 MEQ/L Anion Gap 11 MEQ/L Blood Urea Nitrogen 12 MG/DL Creatinine 0.74 MG/DL Estimat Glomerular Filtration 78 ML/MIN Rate Random Glucose 107 MG/DL Calcium Level 9.1 MG/DL Total Bilirubin 0.8 MG/DL Aspartate Amino Transf 30 U/L (AST/SGOT) Alanine Aminotransferase 24 U/L (ALT/SGPT) Alkaline Phosphatase 86 U/L Total Creatine Kinase 599 U/L Creatine Kinase MB 3.9 NG/ML Creatine Kinase MB % 0.7 % Troponin I LESS THAN 0.02 NG/ML Total Protein 7.4 GM/DL Albumin 3.9 GM/DL Salicylates Level LESS THAN 1.7 MG/DL Acetaminophen Level LESS THAN 2.0 MCG/ML Urine Color LIGHT-YELLOW Urine Turbidity CLEAR Urine pH 7.5 Urine Specific [place] 1.009 Urine Protein NEG mg/dL Urine Glucose (UA) NEG mg/dL Urine Ketones 40 mg/dL Urine Occult Blood NEG Urine Nitrite NEG Urine Bilirubin NEG Urine Urobilinogen LESS THAN 2.0 MG/DL Urine Leukocyte Esterase NEG Urine RBC 1 /hpf Urine WBC 1 /hpf Urine Squamous Epithelial <1 /hpf Cells Urine Hyaline Casts 3 /lpf Microscopic Urinalysis Comment CATH-CULT NOT IND Urine Opiates Screen NEG Urine Barbiturates Screen NEG Urine Amphetamines Screen NEG Urine Benzodiazepines Screen POS Urine Cocaine Screen NEG Urine Cannabinoids Screen NEG MDM Medical Decision Making Medical Screen Exam Complete: Yes Emergency Medical Condition: Yes Medical Record Reviewed: Yes Differential Diagnosis Syncope, intracranial hemorrhage, concussion, polysubstance abuse, encephalopathy, electrolyte abnormality Narrative Course 66-year-old female presents for evaluation after having 2 days of generalized amnesia, syncopal event 2 days ago. She complains of generalized pain. She is on several sedating medications including Lortab, Ambien, time as well as a recently prescribed a muscle relaxer. She seems to take these medications quite liberally. In regards to focal complaints she is also complaining of generalized abdominal pain, diarrhea for one week. Plan is for basic lab work, CT of the brain, abdomen, chest x-ray. The patient's laboratory imaging studies have been reviewed and revealed mild diverticulitis. No leukocytosis, tachycardia or fever. CK is elevated at 599, some ketones in the urine. Potassium mildly low at 3.3. The patient was given IV fluids, IV Cipro and Flagyl. Toxicology positive for benzodiazepines. At this point attempted to intubate the patient personally however she felt very dizzy and weak upon standing and therefore the decision was made to admit the patient observation for generalized weakness, dehydration. Diagnosis Primary Impression: Diverticulitis Qualified Code: K57.80 - Diverticulitis of intestine with perforation without abscess or bleeding, unspecified part of intestinal tract Additional Impressions: Generalized weakness Syncope Qualified Code: R55 - Syncope, unspecified syncope type Dehydration Admitting Information Admitting Physician Requests: Admit Carlito Schwartz September 12, 2016 13:42
[2016-09-12] MEDS ORDERED: SODIUM CHLORIDE 0.9% FLUSH 5 ML FLUSH IV FLUSH PRN (13:45)
[2016-09-12 13:47] VITALS: O2SAT 100
[2016-09-12] MEDS ORDERED: AMBI5TAB PO (13:47)
[2016-09-12 13:55] LABS: BASOPHIL # 0.1 TH/MM3 (0-0.2); BASOPHIL % 0.6 % (0.0-2.0); EOSINOPHIL # 0.1 TH/MM3 (0-0.4); EOSINOPHIL % 0.8 % (0.0-4.0); HEMATOCRIT 39.8 % (35.0-46.0); HEMO FLAGS DIFF FINAL; LYMPH % 16.1 % (9.0-44.0); LYMPHOCYTE # 1.5 TH/MM3 (1.0-4.8); MEAN CELL VOLUME 83.4 FL (80.0-100.0); MEAN CORPUSCULAR HEMOGLOBIN 28.5 PG (27.0-34.0); MEAN CORPUSCULAR HGB CONC 34.1 % (32.0-36.0); MONO % 5.9 % (0.0-8.0); NEUT % 76.6 % (16.0-70.0); PLATELET COUNT 226 TH/MM3 (150-450); RED BLOOD COUNT 4.77 MIL/MM3 (4.00-5.30); WHITE BLOOD COUNT 9.1 TH/MM3 (4.0-11.0)
[2016-09-12 14:10] LABS: ALT (GPT) 24 U/L (10-53); ANION GAP 11 MEQ/L (5-15); AST (GOT) 30 U/L (15-37); BICARBONATE 22.2 MEQ/L (21.0-32.0); BLOOD UREA NITROGEN 12 MG/DL (7-18); CHLORIDE 110 MEQ/L (98-107); GLOMERULAR FILTRATION RATE 78 ML/MIN (>89); POTASSIUM 3.3 MEQ/L (3.5-5.1); SODIUM (NA) 143 MEQ/L (136-145)
[2016-09-12 14:12] LABS: APTT (PATIENT) 20.5 SEC (24.3-30.1); PROTHROMBIN TIME - PATIENT 10.5 SEC (9.8-11.6)
[2016-09-12 14:14] LABS: ALKALINE PHOSPHATASE 86 U/L (45-117); CREATINE KINASE 599 U/L (26-192); TOTAL BILIRUBIN ADULT 0.8 MG/DL (0.2-1.0)
[2016-09-12 14:26] LABS: CKMB 3.9 NG/ML (0.5-3.6)
--- NOTE | 2016-09-12 14:47 | RADRPT ---
EXAM DATE/TIME: 09/12/2016 13:54 [facility] COMPARISON: No previous studies available for comparison. INDICATIONS : Syncope MEDICAL HISTORY : None. SURGICAL HISTORY : None. ENCOUNTER: Initial ACUITY: 1 day PAIN SCORE: 0/10 LOCATION: Bilateral chest FINDINGS: No focal consolidation. There is a nodular density in the right suprahilar region. Further evaluation with chest CT is recommended. No effusion. Heart size normal. CONCLUSION: 1. Focal nodule right suprahilar region. Further evaluation with chest CT recommended. Tomer Tan MD on September 12, 2016 at 14:42 Board Certified Radiologist. This report was verified electronically.
--- NOTE | 2016-09-12 15:05 | RADRPT ---
EXAM DATE/TIME: 09/12/2016 13:53 [facility] COMPARISON: No previous studies available for comparison. INDICATIONS : Right foot pain, fell MEDICAL HISTORY : None. SURGICAL HISTORY : None. ENCOUNTER: Initial ACUITY: 1 day PAIN SCORE: 2/10 LOCATION: Right Foot FINDINGS: Three view examination of the right foot demonstrates no soft tissue swelling, dislocation, or fractu re. The tarsal bones appear intact. The interphalangeal and metatarsophalangeal joints are intact. The calcaneus is intact. Bony mineralization is decreased. CONCLUSION: 1. No acute fracture identified. Bones are mildly osteopenic. Tomer Tan MD on September 12, 2016 at 15:03 Board Certified Radiologist. This report was verified electronically.
[2016-09-12 15:06] LABS: BLOOD, URINE NEG (NEG); COMMENT (UR) CATH-CULT NOT IND; CULTURE IF INDICATED CATH CULTURE NOT IND; GLUCOSE,URINE NEG (NEG); HYALINE CAST, URINE 3 /lpf (RARE); KETONE, URINE 40 mg/dL (NEG); NITRITE,URINE NEG (NEG); PH, URINE 7.5 (5.0-8.5); SQUAMOUS EPITHELIAL CELL URINE <1 /hpf (0-5); URINE COLOR LIGHT-YELLOW (YELLW/STRAW)
--- NOTE | 2016-09-12 15:06 | RADRPT ---
EXAM DATE/TIME: 09/12/2016 13:57 [facility] COMPARISON: No previous studies available for comparison. INDICATIONS : Pain right 3rd finger, fell MEDICAL HISTORY : None. SURGICAL HISTORY : None. ENCOUNTER: Initial ACUITY: 1 day PAIN SCORE: 0/10 LOCATION: Right 3rd finger FINDINGS: Examination of the third digit of the right hand demonstrates no evidence of fracture or dislocation. No radiopaque foreign bodies are seen. The soft tissues are intact. CONCLUSION: 1. No acute fracture identified. Mild osteoarthritis. Tomer Tan MD on September 12, 2016 at 15:04 Board Certified Radiologist. This report was verified electronically.
[2016-09-12 15:12] LABS: AMPHETAMINE, URINE NEG (NEG); BARBITURATES, URINE NEG (NEG); COCAINE, URINE NEG (NEG)
[2016-09-12 15:42] VITALS: BP 154/77; PULSE 81; RESP 18; O2SAT 98
[2016-09-12] MEDS ORDERED: IOHEXOL 350 MG/ML 10 ML VIAL (for RAD DIAG) IV ONE (15:55)
--- NOTE | 2016-09-12 16:05 | RADRPT ---
EXAM DATE/TIME: 09/12/2016 15:12 [facility] COMPARISON: CT BRAIN W/O CONTRAST, May 26, 2016, 14:22. MRI BRAIN W & W/O CONTRAST, June 27, 2016, 17:17. INDICATIONS : Fell two days ago. RADIATION DOSE: 56.35 CTDIvol (mGy) MEDICAL HISTORY : None SURGICAL HISTORY : None. ENCOUNTER: Initial ACUITY: 2 days PAIN SCALE: 4/10 LOCATION: cranial TECHNIQUE: Multiple contiguous axial images were obtained of the head. Using automated exposure control and adj ustment of the mA and/or kV according to patient size, radiation dose was kept as low as reasonably a chievable to obtain optimal diagnostic quality images. 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 There is no evidence of intracranial mass or hemorrhage. There is nothing to suggest acute infarction. The ventricles are stable symmetric and normal. The extracranial structures are benign and intact. CONCLUSION: Stable brain without acute intracranial findings. Amor Gloria MD on September 12, 2016 at 16:00 Board Certified Radiologist. This report was verified electronically.
--- NOTE | 2016-09-12 16:06 | RADRPT ---
EXAM DATE/TIME: 09/12/2016 15:18 [place] COMPARISON: No previous studies available for comparison. INDICATIONS : Neck pain and dizziness, fall on Friday. IV CONTRAST: 75 cc Omnipaque 350 (iohexol) IV ORAL CONTRAST: No oral contrast ingested. RADIATION DOSE: 12.15 CTDIvol (mGy) MEDICAL HISTORY : None SURGICAL HISTORY : None. ENCOUNTER: Initial ACUITY: 1 day PAIN SCALE: 2/10 LOCATION: TECHNIQUE: Volumetric scanning of the abdomen and pelvis was performed. Using automated exposure control and ad justment of the mA and/or kV according to patient size, radiation dose was kept as low as reasonably achievable to obtain optimal diagnostic quality images. FINDINGS: Lung bases are clear except for minimal atelectasis. Multiple hepatic cysts present, similar to September 2014. Spleen, adrenals, kidneys and pancreas demonstr ate no acute findings. Small gallstones in the gallbladder. No free fluid. No bowel obstruction. There is colonic diverticulosis. There is some stranding of fat around the mid sigmoid colon associated with diverticula most characteristic of a mild diverticulitis . No abscess, obstruction, free fluid or free air. CONCLUSION: 1. No acute traumatic injury identified within the abdomen and pelvis. 2. Minimal stranding of fat around the mid sigmoid colon associated with diverticulosis characteristi c of a mild diverticulitis. Tomer Tan MD on September 12, 2016 at 15:57 Board Certified Radiologist. This report was verified electronically.
[2016-09-12] MEDS ORDERED: CIPROFLOXACIN 400 MG PREMIX 200 ML IV ONE (16:15)
[2016-09-12] MEDS ORDERED: metroNIDAZOLE 500 MG INJ 100 ML IV ONE (16:15)
[2016-09-12] MEDS ORDERED: SODIUM CHLOR 0.9% 1000 ML INJ 1,000 ML IV SCH (16:22)
[2016-09-12] MEDS ORDERED: POTASSIUM CHLORIDE 20 MEQ PWD PACKET PO ONE (16:30)
[2016-09-12] MEDS ORDERED: POTASSIUM CHLORIDE 20 MEQ CONTROLLED RELEASE TAB PO ONE (16:30)
--- NOTE | 2016-09-12 17:43 | HHI.HP ---
[facility] Service Family Medicine Primary Care Physician Velma Morales MD Admission Diagnosis diverticulitis, generalized weakness, dehydration, syncope Diagnoses: International Travel<30 Days: No Contact w/Intl Traveler<30days: No Known Affected Area: No History of Present Illness Pt is a 66-year-old woman with a history of diverticulitis, fibrosing esophagitis, dilated every 2-3 months, who presents with generalized weakness in the context of diverticulitis. Pt p/w her sister. Pt is a poor historian because of recent amnesia. Yesterday, patient started having diarrhea with too many episodes to count. Pt does not know if there has been any red or black in her stools. Then, she woke up this morning and couldn't walk or get out of bed. Patient reports that everything felt numb. She then laid back down and couldn't move. She tried to reach for the phone, and couldn't get it. She kept laying in wait, and tried again to reach the phone and was able to push one number on speed dial. She called a neighbor, said "help." The next thing she remembers was the paramedics coming, but not much else. Pt reports that her feet and legs hurt. They feel rubbery. Her thighs hurt like she rode a horse. She can't tell if she is putting pressure on her legs, but then they start to hurt with sustained pressure. She always has trouble swallowing because of esophageal webs, but now it is worse. Prior to this episode of weakness and inability to walk, she had an episode of syncope/amnesia 2 days ago on Friday. Her neighbor, Karen, took her to MRI on Friday, then she left. Around 6pm, pt felt suddenly dizzy, so she went into the bathroom Friday night to take a Lortab for neck pain associated with dizziness after MRI done that day. She thought she fell, but somehow she changed her clothes to go to bed, which she does not remember doing. Karen, her neighbor, said the bathroom was a mess, so she probably fell. She has no memory of Friday. She was likely in bed all day Friday. Prior to that, this past Friday, pt was doing a lot of shopping and walking with her sister. Friday night, pt took a laxative because she was constipated. GI Dr. Oconnor told her to take a laxative when constipated because of her h/o diverticulitis. (Zen Linares MD R1) Review of Systems Constitutional: COMPLAINS OF: Chills (all the time), DENIES: Fever Eyes: COMPLAINS OF: Blurred vision, Diplopia, Vision loss (right eye ~20%), DENIES: Eye pain Ears, nose, mouth, throat: DENIES: Hearing loss, Running Nose, Sinus Pain Respiratory: COMPLAINS OF: Cough (today, associated with taking pills, she has to take liquids for 186 esophageal dilations), Shortness of breath (now ok, after panic attack) Cardiovascular: COMPLAINS OF: Syncope, DENIES: Chest pain Gastrointestinal: COMPLAINS OF: Abdominal pain, Diarrhea (loose, some solid), Nausea (all the time), DENIES: Vomiting Genitourinary: DENIES: Dysuria Integumentary: DENIES: Rash Hematologic/lymphatic: COMPLAINS OF: Bruising (right 3rd finger, right 2nd toe , left knee) Neurologic: COMPLAINS OF: Abnormal gait, Localized weakness, DENIES: Headache Psychiatric: COMPLAINS OF: Anxiety (panic attacks) (Zen Linares MD R1) Past Family Social History Past Medical History h/o right retinal detachment, with residual vision loss, then left retinal detachment, with residual blurry vision and diplopia neck - pinched nerves, Lortab helps, but pain getting worse fibrosing esophagitis with esophageal webs s/pn hundreds of esophageal dilations Past Surgical History jaw surgery shoulder surgery knee surgery left foot surgery Reported Medications Reviewed with patient: Reported Meds & Active Scripts Active Ketorolac Opth Drops 0.5% Drops 1 Drop LEFT EYE DAILY Calcium + D & K (Calcium-Vitamins D & K) 500-1,000-40 Mg-Unit-Mcg Chew 1 Tab CHEW HS Diazepam 2 Mg Tab 3 Tab PO DAILY PRN Take 1/2 tab one to two times during the day, as needed for anxiety. Take 1-2 tabs at bedtime as needed for sleep. Reported Ambien (Zolpidem Tartrate) 5 Mg Tab 5 Mg PO HS PRN Hydrocodone-Acetaminophen 7.5-325 mg Tab 0.5 Tab PO BID PRN Latanoprost Opth Drops (Latanoprost) 0.005% Drops 1 Drop EACH EYE HS Refrigerate until opened. (Zen Linares MD R1) Allergies: Coded Allergies: Corticosteroids (Verified Allergy, Severe, Anaphylaxis, 09/12/16) Family History no FH of similar problems. Social History live alone. sister helps when she can with shopping and drinking. No NEOMY. (Zen Linares MD R1) Physical Exam Vital Signs Vital Signs Date Time Temp Pulse Resp B/P Pulse Ox O2 Delivery O2 Flow Rate FiO2 09/12/16 15:42 81 18 154/77 98 Room Air 09/12/16 13:47 100 Room Air 09/12/16 13:39 100 Room Air 09/12/16 13:39 77 18 155/87 99 Room Air 09/12/16 13:29 97.9 75 18 155/87 100 Physical Exam GENERAL: This is a well-nourished, well-developed elderly female patient, in no apparent distress. SKIN: Ecchymoses of right 3rd finger, right 2nd toe, left knee. No rashes or lesions. Cool and dry. HEAD: Atraumatic. Normocephalic. EYES: Pupils equal round and reactive. Extraocular motions intact. No scleral icterus. No injection or drainage. ENT: Nose without bleeding, purulent drainage. Moist mucous membranes. Throat without erythema, tonsillar hypertrophy or exudate. Uvula midline. Airway patent. NECK: Trachea midline. No JVD or lymphadenopathy. Supple, nontender, no meningeal signs. CARDIOVASCULAR: Regular rate and rhythm without murmurs, gallops, or rubs. RESPIRATORY: Clear to auscultation. Breath sounds equal bilaterally. No wheezes , rales, or rhonchi. GASTROINTESTINAL: Hypoactive bowel sounds present. Abdomen soft, diffusely tender everywhere except right upper quadrant, especially tender in left lower quadrant, but nondistended. MUSCULOSKELETAL: Extremities without clubbing, cyanosis, or edema. No joint tenderness, effusion, or edema noted. No calf tenderness. NEUROLOGICAL: Awake and alert. Cranial nerves II through XII grossly intact. Motor and sensory grossly within normal limits. Normal speech. Laboratory Laboratory Tests Test 09/12/16 09/12/16 09/12/16 09/12/16 13:35 13:45 14:36 14:42 Ammonia 13 White Blood Count 9.1 Red Blood Count 4.77 Hemoglobin 13.6 Hematocrit 39.8 Mean Corpuscular Volume 83.4 Mean Corpuscular Hemoglobin 28.5 Mean Corpuscular Hemoglobin 34.1 Concent Red Cell Distribution Width 14.0 Platelet Count 226 Mean Platelet Volume 8.8 Neutrophils (%) (Auto) 76.6 Lymphocytes (%) (Auto) 16.1 Monocytes (%) (Auto) 5.9 Eosinophils (%) (Auto) 0.8 Basophils (%) (Auto) 0.6 Neutrophils # (Auto) 7.0 Lymphocytes # (Auto) 1.5 Monocytes # (Auto) 0.5 Eosinophils # (Auto) 0.1 Basophils # (Auto) 0.1 CBC Comment DIFF FINAL Differential Comment Prothrombin Time 10.5 Prothromb Time International 1.0 Ratio Activated Partial 20.5 Thromboplast Time Sodium Level 143 Potassium Level 3.3 Chloride Level 110 Carbon Dioxide Level 22.2 Anion Gap 11 Blood Urea Nitrogen 12 Creatinine 0.74 Estimat Glomerular Filtration 78 Rate Random Glucose 107 Calcium Level 9.1 Total Bilirubin 0.8 Aspartate Amino Transf 30 (AST/SGOT) Alanine Aminotransferase 24 (ALT/SGPT) Alkaline Phosphatase 86 Total Creatine Kinase 599 Creatine Kinase MB 3.9 Creatine Kinase MB % 0.7 Troponin I LESS THAN 0.02 Total Protein 7.4 Albumin 3.9 Salicylates Level LESS THAN 1.7 Acetaminophen Level LESS THAN 2.0 Urine Color LIGHT-YELLOW Urine Turbidity CLEAR Urine pH 7.5 Urine Specific [place] 1.009 Urine Protein NEG Urine Glucose (UA) NEG Urine Ketones 40 Urine Occult Blood NEG Urine Nitrite NEG Urine Bilirubin NEG Urine Urobilinogen LESS THAN 2.0 Urine Leukocyte Esterase NEG Urine RBC 1 Urine WBC 1 Urine Squamous Epithelial <1 Cells Urine Hyaline Casts 3 Microscopic Urinalysis Comment CATH-CULT NOT IND Urine Opiates Screen NEG Urine Barbiturates Screen NEG Urine Amphetamines Screen NEG Urine Benzodiazepines Screen POS Urine Cocaine Screen NEG Urine Cannabinoids Screen NEG (Zen Linares MD R1) Result Diagram: 09/12/16 1345 09/12/16 1345 Imaging Last Impressions Head CT 09/12/16 1542 Signed Impressions: Service Date/Time: August 15:12 - CONCLUSION: Stable brain without acute intracranial findings. Amor Gloria MD Abdomen/Pelvis CT 09/12/16 1346 Signed Impressions: Service Date/Time: August 15:18 - CONCLUSION: 1. No acute traumatic injury identified within the abdomen and pelvis. 2. Minimal stranding of fat around the mid sigmoid colon associated with diverticulosis characteristic of a mild diverticulitis. Tomer Tan MD Chest X-Ray 09/12/16 1339 Signed Impressions: Service Date/Time: August 13:54 - CONCLUSION: 1. Focal nodule right suprahilar region. Further evaluation with chest CT recommended. Tomer Tan MD Foot X-Ray 09/12/16 0000 Signed Impressions: Service Date/Time: August 13:53 - CONCLUSION: 1. No acute fracture identified. Bones are mildly osteopenic. Tomer Tan MD Finger X-Ray 09/12/16 0000 Signed Impressions: Service Date/Time: August 13:57 - CONCLUSION: 1. No acute fracture identified. Mild osteoarthritis. Tomer Tan MD Course In the emergency depart, patient had x-ray of foot, x-ray of finger, CT of brain without IV contrast, chest x-ray, UA, troponin, a PTT, PT/INR, CK, CMP, CBC, ammonia, EKG, CK-MB, CT abdomen and pelvis with IV contrast, random urine drug screen, salicylate level, Tylenol level, Cipro 400 mg IV 1, Flagyl 500 mg IV 1, order for potassium that the patient was struggling to ingest, and admission order. (Zen Linares MD R1) Assessment and Plan Assessment and Plan Pt is a 66-year-old woman with a history of diverticulitis who presents with generalized weakness in the context of mild diverticulitis. Would have treated as an outpatient, however patient was unable to walk. Thus, place in observation for bowel rest with clear liquid diet, IV antibiotics, pain control , PT consult. Code Status DNR Discussed Condition With Discussed case with Dr. Feliberto aClderon and GI Dr. Oconnor. (Zen Linares MD R1 ) Attending Attestation Patient seen and examined. Case reviewed and discussed Please refer to resident H&P for further details regarding HPI, ROS, PMH, SurgHx , Fh and SocHx In summary, patient is a 66yoF with who presents after an apparent syncopal episode and subsequent weakness at home. Patient is seen in her hospital room this am, feeling much better. Worked with PT this am. Had a partial syncopal work-up in the recent months, but no Echo. No further episodes, no chest pain, palpitations. CK down trending. GENERAL: Thin female, NAD, sitting up in bed, communicative SKIN: Warm and dry. NO rashes, mild pallor HEAD: Normocephalic. AT EYES: No scleral icterus. No injection or drainage. ENT: OP clear. MMM, mild upper lip edema from fall, no evidence of tongue biting NECK: Supple, trachea midline. No JVD or lymphadenopathy. CARDIOVASCULAR: Regular rate and rhythm without audible murmurs, gallops, or rubs. RESPIRATORY: Breath sounds equal and clear bilaterally. No accessory muscle use. GASTROINTESTINAL: Abdomen soft, non-tender, nondistended. thin, no palpable masses, organomegaly MUSCULOSKELETAL: No cyanosis, or edema. No calf tenderness BACK: Nontender without obvious deformity. No CVA tenderness. NEURO: Awake and alert. Normal speech. CN Grossly intact. A/P: 66yoF admitted with: Syncope of undetermined length Weakness Rhabdomyolysis Mild hypokalemia Chronic neck pain, KRAMER, follows with neurology closely Diverticulitis, acute Pulm nodule, patient informed Telemetry 2D echo Had CTA neck in May, 2016 EEG UA CE, ekg PT Resume home meds IVF Empiric antibiotics for diverticulitis Patient seen and examined. Case reviewed and discussed Agree with plan of care as discussed with me and documented in the resident note. (Betsy Horne MD) Problem List: (1) Generalized weakness Status: Acute Plan: Patient presents with chief complaint of generalized weakness in the context of diarrhea since yesterday, likely associated dehydration, and CT scan showing likely mild diverticulitis. Her inability to walk is what made us place her in observation instead of sending her home with outpatient treatment of mild diverticulitis. Given workup thus far, patient's weakness is unlikely related to anemia/GI bleed, electrolyte abnormalities, toxic overdose (tox screen negative for opiates and positive for benzo's, both of which are prescribed to pt), CVA, UTI, pneumonia, or sepsis. However, pt's weakness and amnesia could be related to pain or benzo's. Placed in observation PT consult Maintenance IV fluids of normal saline plus KCl 40 mEq at 112 mL per hour Monitor CBC and BMP and CK, which was elevated to 599, likely in the context of patient being bedbound (2) Diverticulitis Status: Acute Plan: Patient presents with diarrhea since yesterday and CT scan showing likely mild diverticulitis. Patient received Cipro 400 mg IV 1 and metronidazole 500 mg IV 1 in emergency department. Bowel rest with clear liquid diet IV fluid hydration as above Levaquin 750 mg IV every 24 hours Flagyl 500 mg IV every 8 hours Pain control as below: Continue patient's home medication of [place] 325-7.5 mg 0.5 tab by mouth twice a day when necessary for pain 1-10 Acetaminophen 1 g IV every 6 hours when necessary for pain if patient not tolerating by mouth Morphine 4 mg IV every 3 hours for breakthrough pain Zofran 4 mg IV push every 6 hours when necessary for nausea or vomiting Bedrest Monitor intake and output Monitor vital signs every 4 hours (3) Hypokalemia Status: Acute Plan: Patient presents with hypokalemia of 3.3 in the context of diarrhea and mild diverticulitis. Patient was unable to take the potassium pill, and was struggling to drink her oral liquid potassium, so decided to add potassium to her IV fluids. IV fluids with potassium (4) FEN, ppx, and chronic problems Status: Acute Plan: Fluids: IV fluids with 40 mEq potassium at 112 mL per hour Electrolytes: Monitor and replete as needed. See hypokalemia above. Nutrition: Clear liquid diet GI ppx: Not currently indicated DVT prophylaxis: Lovenox 40 mg subcutaneous every 24 hours Chronic medical conditions: Continue home medication of calcium and vitamin D and K Continue home medication of diazepam 2 mg tab take one half tab 1-2 times during the day as needed for anxiety and 1 tab at night Continue pain medication as above Continue home medication of ketorolac ophthalmologic drops 0.5% drops 1 drop left eye daily for pain/inflammation Continue home medication of [place] pressed ophthalmologic eyedrops 0.005% drops 1 drop each eye daily at bedtime for glaucoma Continue home medication of Ambien 5 mg by mouth daily at bedtime when necessary for insomnia (5) Pulmonary nodule Status: Acute Plan: Pulmonary nodule noted in right lung on chest x-ray. Discussed with patient. Recommended CT follow-up. Plan to discharge patient with instructions for outpatient CT follow-up of right lung nodule (Zen Linares MD R1) Problem Qualifiers (1) Diverticulitis: Qualified Code: K57.80 - Diverticulitis of intestine with perforation without abscess or bleeding, unspecified part of intestinal tract Zen Linares MD R1 September 12, 2016 17:43 Betsy Horne MD September 13, 2016 16:29
[2016-09-12] MEDS ORDERED: ZOLPIDEM TARTRATE 5 MG TAB PO PRN ×2 (18:00→18:30)
[2016-09-12] MEDS ORDERED: NALOXONE HCL 0.4 MG/ML AMP IV PRN (18:00)
[2016-09-12] MEDS ORDERED: ONDANSETRON HCL 4 MG/2 ML VIAL IVP PRN (18:00)
[2016-09-12] MEDS ORDERED: SODIUM CHLORIDE 0.9% FLUSH 10 ML FLUSH IV FLUSH PRN (18:00)
[2016-09-12 18:07] VITALS: BP 149/68; PULSE 81; RESP 18; O2SAT 100
[2016-09-12] MEDS ORDERED: metroNIDAZOLE 500 MG INJ 100 ML IV SCH (18:30)
[2016-09-12] MEDS ORDERED: LEVOFLOXACIN 750 MG PREMIX INJ 150 ML IV SCH (18:30)
[2016-09-12] MEDS ORDERED: DIAZEPAM 2 MG TAB PO PRN (18:30)
[2016-09-12] MEDS ORDERED: KETO0.5S2 LEFT EYE (18:31)
[2016-09-12] MEDS ORDERED: CALCCHW25 CHEW (18:31)
[2016-09-12] MEDS ORDERED: MORPHINE SULFATE 4 MG/ML INJ IV PUSH PRN (18:45)
[2016-09-12] MEDS ORDERED: ACETAMINOPHEN 1000 MG/100 ML VIAL IV PRN (18:45)
[2016-09-12] MEDS: ENOXAPARIN SODIUM 40 MG/0.4 ML SYRINGE SQ SCH (18:56)
[2016-09-12] MEDS: ACETAMINOPHEN/HYDROcodone 325 MG/7.5 MG TAB PO PRN (18:57)
[2016-09-12] MEDS: NS + KCL 40 MEQ INJ 1,000 ML IV SCH (19:25)
[2016-09-12 19:40] VITALS: BP 126/67; PULSE 86; RESP 16; TEMP 98.3; O2SAT 100
[2016-09-12] MEDS ORDERED: LATANOPROST 0.005% OPHT SOLN 2.5 ML BTL EACH EYE SCH (21:00)
[2016-09-12] MEDS: SODIUM CHLORIDE 0.9% FLUSH 10 ML FLUSH IV FLUSH SCH (22:30)
[2016-09-13] VITALS (7 sets, daily range): BP systolic 105–138; BP diastolic 56–80; PULSE 74–90; RESP 16–20; TEMP 96.5–98.1; O2SAT 96–98
[2016-09-13] MEDS: metroNIDAZOLE 500 MG INJ 100 ML IV SCH ×3 (00:28→16:00)
[2016-09-13] MEDS ORDERED: LEVOFLOXACIN 750 MG PREMIX INJ 150 ML IV SCH (05:00)
[2016-09-13] MEDS: NS + KCL 40 MEQ INJ 1,000 ML IV SCH ×2 (05:16→12:22)
[2016-09-13 07:52] LABS: AUTOMATED NEUTROPHIL # 3.5 TH/MM3 (1.8-7.7); BASOPHIL # 0.1 TH/MM3 (0-0.2); EOSINOPHIL # 0.1 TH/MM3 (0-0.4); EOSINOPHIL % 2.2 % (0.0-4.0); HEMATOCRIT 33.9 % (35.0-46.0); HEMO FLAGS DIFF FINAL; LYMPH % 20.1 % (9.0-44.0); MEAN CELL VOLUME 84.6 FL (80.0-100.0); MEAN CORPUSCULAR HEMOGLOBIN 27.6 PG (27.0-34.0); MEAN CORPUSCULAR HGB CONC 32.7 % (32.0-36.0); MONO % 8.9 % (0.0-8.0); NEUT % 67.8 % (16.0-70.0); PLATELET COUNT 180 TH/MM3 (150-450); RED BLOOD COUNT 4.01 MIL/MM3 (4.00-5.30); WHITE BLOOD COUNT 5.2 TH/MM3 (4.0-11.0)
[2016-09-13 07:58] LABS: POTASSIUM 3.5 MEQ/L (3.5-5.1)
[2016-09-13 08:15] LABS: CKMB 3.2 NG/ML (0.5-3.6)
[2016-09-13] MEDS: SODIUM CHLORIDE 0.9% FLUSH 10 ML FLUSH IV FLUSH SCH (08:39)
[2016-09-13] MEDS: ACETAMINOPHEN/HYDROcodone 325 MG/7.5 MG TAB PO PRN (08:39)
--- NOTE | 2016-09-13 09:42 | HHI.FPPN ---
Subjective Remarks No acute events overnight. Vital signs remained stable. Patient goes on to elaborate the circumstances of her fall. She states she is having a severe headache just before passing out. Imaging has been unremarkable thus far including head CT with the exception of the chest x-ray which showed a pulmonary nodule. Per radiology recommendations, a chest CT is pending. Patient does have a long-standing history of neck and head pain. She recently had an MRI performed this past week as an outpatient. She states her headache has resolved. She was just seen by physical therapy and was able to ambulate with assistance. She would like to go home with home health if eligible. ( Markus Fitzpatrick MD R3) Objective Vitals Vital Signs Date Time Temp Pulse Resp B/P Pulse Ox O2 Delivery O2 Flow Rate FiO2 09/13/16 08:11 97.8 80 20 129/80 96 09/13/16 04:07 98.1 90 16 105/56 98 09/13/16 00:05 98.0 83 20 118/58 98 09/12/16 20:30 20 09/12/16 19:40 98.3 86 16 126/67 100 09/12/16 18:07 81 18 149/68 100 Room Air 09/12/16 15:42 81 18 154/77 98 Room Air 09/12/16 13:47 100 Room Air 09/12/16 13:39 100 Room Air 09/12/16 13:39 77 18 155/87 99 Room Air 09/12/16 13:29 97.9 75 18 155/87 100 (Markus Fitzpatrick MD R3) Result Diagram: 09/13/16 0640 09/13/16 0640 Objective Remarks GENERAL: This is a well-nourished, well-developed elderly female patient, in no apparent distress. SKIN: No rashes or lesions. Cool and dry. HEAD: Atraumatic. Normocephalic. EYES: Pupils equal round and reactive. Extraocular motions intact. No scleral icterus. No injection or drainage. NECK: Trachea midline. Neck pain with ROM (baseline) CARDIOVASCULAR: Regular rate and rhythm without murmurs, gallops, or rubs. RESPIRATORY: Clear to auscultation. Breath sounds equal bilaterally. No wheezes , rales, or rhonchi. GASTROINTESTINAL: Hypoactive bowel sounds present. Abdomen soft, nondistended. Mild generalized lower abdominal pain. MUSCULOSKELETAL: Extremities without edema. No calf tenderness. NEUROLOGICAL: Awake and alert. Cranial nerves II through XII grossly intact. Motor and sensory grossly within normal limits. Normal speech. (Markus Fitzpatrick MD R3) A/P Assessment and Plan Pt is a 66-year-old woman with a history of diverticulitis who presents with generalized weakness in the context of mild diverticulitis. Admitted to observation for weakness. Discharge Planning Anticipate discharge home with home health PT today. (Markus Fitzpatrick MD R3) Attending Attestation Patient seen and examined. Case reviewed and discussed Agree with plan of care as discussed with me and documented in the resident note. (Betsy Horne MD) Problem List: (1) Generalized weakness Status: Acute Plan: Patient presents with chief complaint of generalized weakness in the context of diarrhea since yesterday, likely associated dehydration, and CT scan showing likely mild diverticulitis. Her inability to walk is what made us place her in observation instead of sending her home with outpatient treatment of mild diverticulitis. Given workup thus far, patient's weakness is unlikely related to anemia/GI bleed, electrolyte abnormalities, toxic overdose (tox screen negative for opiates and positive for benzo's, both of which are prescribed to pt), CVA, UTI, pneumonia, or sepsis. Currently stable at this time. PT following, likely require PT w/ home health vs PT as outpatient Maintenance IV fluids of normal saline plus KCl 40 mEq at 112 mL per hour Monitor CBC and BMP and CK, which was elevated to 599, likely in the context of patient being bedbound (2) Diverticulitis Status: Acute Plan: Patient presents with diarrhea x2 days and CT scan showing likely mild diverticulitis. Patient received Cipro 400 mg IV 1 and metronidazole 500 mg IV 1 in emergency department. Bowel rest, ADAT IV fluid hydration Levaquin 750 mg IV every 24 hours Flagyl 500 mg IV every 8 hours -> Transition to PO Flagyl and Levaquin at time of discharge Pain control as below: Continue patient's home medication of [place] 325-7.5 mg 0.5 tab by mouth twice a day when necessary for pain 1-10 Acetaminophen 1 g IV every 6 hours when necessary for pain if patient not tolerating by mouth Morphine 4 mg IV every 3 hours for breakthrough pain Zofran 4 mg IV push every 6 hours when necessary for nausea or vomiting (3) Hypokalemia Status: Acute Plan: 3.3 on admission. Now 3.5. Continue KCl in IVF until this afternoon (4) Pulmonary nodule Status: Acute Plan: Pulmonary nodule noted in right lung on chest x-ray. Discussed with patient. Recommended CT follow-up. Will obtain CT at this time (5) FEN, ppx, and chronic problems Status: Acute Plan: Fluids: IV fluids with 40 mEq potassium at 112 mL per hour Electrolytes: Monitor and replete as needed. See hypokalemia above. Nutrition: Clear liquid diet GI ppx: Not currently indicated DVT prophylaxis: Lovenox 40 mg subcutaneous every 24 hours Chronic medical conditions: Continue home medication of calcium and vitamin D and K Continue home medication of diazepam 2 mg tab take one half tab 1-2 times during the day as needed for anxiety and 1 tab at night Continue pain medication as above Continue home medication of ketorolac ophthalmologic drops 0.5% drops 1 drop left eye daily for pain/inflammation Continue home medication of [place] pressed ophthalmologic eyedrops 0.005% drops 1 drop each eye daily at bedtime for glaucoma Continue home medication of Ambien 5 mg by mouth daily at bedtime when necessary for insomnia (Markus Fitzpatrick MD R3) Problem Qualifiers (1) Diverticulitis: Qualified Code: K57.80 - Diverticulitis of intestine with perforation without abscess or bleeding, unspecified part of intestinal tract Markus Fitzpatrick MD R3 September 13, 2016 09:42 Betsy Horne MD September 13, 2016 16:24
--- NOTE | 2016-09-13 11:21 | RADRPT ---
EXAM DATE/TIME: 09/13/2016 10:56 [facility] COMPARISON: No previous studies available for comparison. INDICATIONS : Suprahilar nodule. RADIATION DOSE: 3.80 CTDIvol (mGy) MEDICAL HISTORY : Gastroesophageal reflux disease. Pleurisy, esophageal stricture. SURGICAL HISTORY : None. ENCOUNTER: Initial ACUITY: 1 day PAIN SCALE: 0/10 LOCATION: cranial TECHNIQUE: Volumetric scanning of the chest was performed. Using automated exposure control and adjustment of t he mA and/or kV according to patient size, radiation dose was kept as low as reasonably achievable to obtain optimal diagnostic quality images. FINDINGS: The abnormality on chest radiograph correlates on CT with multifocal clustered nodularity in the righ t upper lobe predominantly in the posterior segment. This is associated with bronchiectasis and bronc hiolectasis with distal mucoid plugging. Small subcentimeter cavitary nodule also present on series 3 image 28. There is also some minimal distal airway disease in the lateral segment right middle lobe. Findings could be characteristic of chronic inflammatory changes possibly related to a low-grade aty pical mycobacterial infection or prior aspiration. There is minimal linear scarring at the lung bases. No significant distal airway disease on the left. No pleural or pericardial effusion. No adenopathy. No acute findings in the upper abdomen. CONCLUSION: 1. Chest radiographically abnormality correlates with multifocal clustered nodularity posterior segme nt right upper lobe associated with cylindrical bronchiectasis, bronchiolectasis with mucoid plugging and a tiny cavitary nodule. Differential diagnosis includes chronic atypical mycobacterial infection or changes related to prior aspiration. No adenopathy or effusion. Tomer Tan MD on September 13, 2016 at 11:13 Board Certified Radiologist. This report was verified electronically.
[2016-09-13] MEDS ORDERED: CIPR500T2 PO (13:12)
[2016-09-13] MEDS ORDERED: METR500T10 PO (13:12)
--- NOTE | 2016-09-13 13:13 | HHI.DCPOC ---
Discharge Care Plan Diagnosis: (1) Syncope (2) Diverticulitis Goals to Promote Your Health * To prevent worsening of your condition and complications * To maintain your health at the optimal level Directions to Meet Your Goals Take your medications as prescribed Follow your dietary instruction Follow activity as directed Keep your appointments as scheduled Take your immunizations and boosters as scheduled If your symptoms worsen call your PCP, if no PCP go to Urgent Care Center or Emergency Room Smoking is Dangerous to Your Health. Avoid second hand smoke Call the 24-hour hour crisis hotline for domestic abuse at Markus Fitzpatrick MD R3 September 13, 2016 13:13 Betsy Horne MD September 13, 2016 16:23
--- NOTE | 2016-09-13 13:18 | HHI.FF ---
Face to Face Verification Diagnosis: (1) Diverticulitis (2) Syncope (3) Generalized weakness Physical Therapy Order: Evaluate and Treat Home Health Nursing Order: Medical education Signs/symptoms of disease process Nursing assessment with vital signs I have seen patient Nidia Cortes on 09/13/16. My clinical findings support the need for the requested home health care services because: Deconditioned w/ increased weakness High risk of falls I certify that my clinical findings support that this patient is homebound because: Unsteady gait/balance Markus Fitzpatrick MD R3 September 13, 2016 13:18 Betsy Horne MD September 13, 2016 16:23
--- NOTE | 2016-09-13 14:22 | EKG ---
Date Performed: 09/12/2016 Time Performed: 14:06:22 PTAGE: 66 years EKG: Sinus rhythm MODERATE ST DEPRESSION ABNORMAL ECG Compared to prior tracing no significant change PREVIOUS TRACING : 05/27/2016 21.39 DOCTOR: Jered Calderon Interpretating Date/Time 09/13/2016 14:20:17
--- NOTE | 2016-09-13 17:56 | EC ---
Study Study Date:09/13/2016 STUDY CONCLUSIONS SUMMARY - Procedure narrative: Transthoracic echocardiography. Image quality was fair. Scanning was performed from the parasternal, apical, and subcostal acoustic windows. - Left ventricle: The cavity size was normal. Wall thickness was normal. Systolic function was normal. The estimated ejection fraction was in the range of 50% to 55%. Although no diagnostic regional wall motion abnormality was identified, this possibility cannot be completely excluded on the basis of this study. - Aortic valve: Trace to mild regurgitation. - Mitral valve: Trace regurgitation. - Tricuspid valve: Trace regurgitation. - Pulmonary arteries: PA peak pressure: 33mm Hg (S). If LV function is below 40, please consider prescribing an ACEI or ARB or document rationale for non-use. PROCEDURE DATA STUDY STATUS: Elective. Procedure: Transthoracic echocardiography. Image quality was fair. Scanning was performed from the parasternal, apical, and subcostal acoustic windows. Study completion: The patient tolerated the procedure well. Transthoracic echocardiography. M-mode, complete 2D, complete spectral Doppler, and color Doppler. Height: Height: 71in. Weight: Weight: 139.7lb. Body mass index: BMI: 19.5kg/m^2. Body surface area: BSA: 1.81m^2. Patient status: Inpatient. CARDIAC ANATOMY LEFT VENTRICLE: The cavity size was normal. Wall thickness was normal. Systolic function was normal. The estimated ejection fraction was in the range of 50% to 55%. Although no diagnostic regional wall motion abnormality was identified, this possibility cannot be completely excluded on the basis of this study. AORTIC VALVE: Trileaflet; normal thickness leaflets. Doppler: Transvalvular velocity was within the normal range. There was no stenosis. Trace to mild regurgitation. Indexed valve area: 0.81cm^2/m^2 (VTI). Indexed valve area: 0.91cm^2/m^2 (Vmax). Mean gradient: 4mm Hg (S). AORTA: Aortic root: The aortic root was normal in size. MITRAL VALVE: Structurally normal valve. Doppler: Transvalvular velocity was within the normal range. There was no evidence for stenosis. Trace regurgitation. Peak gradient: 2mm Hg (D). LEFT ATRIUM: The atrium was normal in size. RIGHT VENTRICLE: The cavity size was normal. Wall thickness was normal. PULMONIC VALVE: Doppler: Transvalvular velocity was within the normal range. There was no evidence for stenosis. No regurgitation. TRICUSPID VALVE: Structurally normal valve. Doppler: Transvalvular velocity was within the normal range. Trace regurgitation. PULMONARY ARTERY: The main pulmonary artery was normal-sized. Systolic pressure was within the normal range. RIGHT ATRIUM: The atrium was normal in size. PERICARDIUM: There was no pericardial effusion. SYSTEMIC VEINS: Inferior vena cava: The vessel was normal in size. Patient weight: 139.7lb _Ejection fraction:_ 65-75% _Fractional shortening:_ 32% up to 5Kg 5-11.5Kg 11.6-22.9Kg 23-45Kg 45-57Kg Aortic Root 7-13 <17 13-22 17-27 17-27 LA diam 6-13 <23 24-38 33-47 37-40 RVID 10-17 7-15 7-15 7-18 8-17 LVIDd 12-22 <32 24-38 33-47 37-40 LVPW 2-4 3-6 5-7 6-8 7-8 IVS 2-4 3-6 5-7 6-8 7-8 BASIC MEASUREMENTS ADULT NORMAL Left ventricle LV internal dimension, ED, chordal 45.4 mm 43-52 level, PLAX LV internal dimension, ES, chordal 33.8 mm 23-38 level, PLAX Fractional shortening, chordal level, *26 % >29 PLAX LV posterior wall thickness, ED 8.87 mm IVS/LVPW ratio, ED 0.99 <1.3 Ventricular septum Septal thickness, ED 8.8 mm Aortic valve Leaflet separation 22 mm 15-26 Aorta Root diameter, ED 34 mm Left atrium Anterior-posterior dimension 16 mm Anterior-posterior dimension index 0.88 cm/m^2 <2.2 BASIC MEASUREMENTS ADULT NORMAL Aortic valve Leaflet separation 22 mm 15-26 DOPPLER MEASUREMENTS ADULT NORMAL Main pulmonary artery Pressure, S *33 mm Hg =30 Aortic valve Peak velocity, S 120 cm/s Mean velocity, S 88.9 cm/s VTI, S 23 cm Mean gradient, S 4 mm Hg Valve area index, VTI 0.81 cm^2/m^2 Valve area index, Vmax 0.91 cm^2/m^2 Regurgitant velocity, ED 361 cm/s Regurgitant deceleration 1380 cm/s^2 Regurgitant pressure half-time 766 ms Regurgitant gradient, ED 52 mm Hg Mitral valve Peak E-wave velocity 72.6 cm/s Peak A-wave velocity 55.3 cm/s Deceleration time *137 ms 150-230 Peak gradient, D 2 mm Hg Peak E/A ratio 1.3 Tricuspid valve Regurgitant peak velocity 248 cm/s Peak RV-RA gradient, S 25 mm Hg Maximal regurgitant velocity 248 cm/s Systemic veins Estimated CVP 10 mm Hg Right ventricle RV pressure, S *35 mm Hg <30 Pulmonic valve Peak velocity, S 71.4 cm/s LEGEND: Mean values are shown as u=mean value. Asterisk (*) goodson values outside specified normal range. Amended Kalpesh Ramsey [id number]
[2016-09-13] MEDS: ENOXAPARIN SODIUM 40 MG/0.4 ML SYRINGE SQ SCH (18:00)
--- NOTE | 2016-09-14 11:53 | MG ---
cc: ARNEL ABEL Lab No: [id number] Date: Age: Sex: F Race: HISTORY: Generalized falling. Dizziness. Global amnesia. Blurred vision. Migraines. Syncope. MEDICATIONS: Levaquin. [place]. DESCRIPTION OF RECORD: A 12 Hz 40 microvolt symmetric posterior rhythm is seen. Photic stimulation was performed without significant posterior driving. Hyperventilation was performed without significant change in the background. No epileptiform or seizure activity was noted. There were no hemisphere asymmetries. IMPRESSION: A generally unremarkable EEG. No evidence for a focal or diffuse abnormality. MD MAXIMILIANO Ferguson/ALBERT /11:35 AM 11:52 AM
== END 2016-09-13 18:14 | disposition home or self-care (01) ==
LOC: NEPC 13:22 → INTOOBSV 16:46 → NEDA 16:46 → NEPGCP 19:31
PROVIDERS: ADMIT Family Medicine; ATTEND Family Medicine
DX: R55 Syncope and collapse (principal); M62.82 Rhabdomyolysis; E87.6 Hypokalemia; G89.29 Other chronic pain; M54.2 Cervicalgia; K57.92 Diverticulitis of intestine, part unspecified, without perforation or abscess without bleeding; R91.1 Solitary pulmonary nodule; E86.0 Dehydration; R41.3 Other amnesia; H53.8 Other visual disturbances; H33.23 Serous retinal detachment, bilateral; H53.2 Diplopia; Q39.4 Esophageal web; J45.909 Unspecified asthma, uncomplicated; K21.9 Gastro-esophageal reflux disease without esophagitis; G43.909 Migraine, unspecified, not intractable, without status migrainosus; K20.8 Other esophagitis; K59.00 Constipation, unspecified; Z66 Do not resuscitate
CPT/HCPCS: 70450; 71010; 71250; 73140; 73630; 74177; 80048; 80053; 80307; 81001; 82140; 82550; 82552; 84484; 85025; 85610; 85730; 93005; 93306; 95819; 97162; 99285; G0378; G8987; G8988; J0744; J1650; J1956; J2270; J2405; J3480; J7030; Q9967

== ENCOUNTER 2017-01-08 09:18 | Emergency (ER) | payer MEDICARE, MEDICAID ==
[~2017-01-08] VITALS: Ht 182.9 cm; Wt 67.0 kg
[~2017-01-08 09:18] MED LIST changes: +AMBI10TA PO; -CALC500T42 PO; +CALCCHW25 CHEW; -EYE EACH EYE; -K-PHTAB PO; +KETO0.5S2 LEFT EYE; -PARO10TA2 PO; -VITA1TAB6 PO; -ZOLE5P IV
[2017-01-08 09:26] VITALS: BP 155/73; PULSE 86; RESP 16; TEMP 98.5; O2SAT 100
[2017-01-08 09:39] VITALS: RESP 16
--- NOTE | 2017-01-08 09:41 | PD ---
HPI Chief Complaint: Injury Time Seen by Provider: 09:32 Travel History International Travel<30 days: No Contact w/Intl Traveler<30days: No Traveled to known affect area: No History of Present Illness HPI The patient was seen and examined in the presence of the nurse. This patient complains of right hand pain. Symptoms severity is moderate. Duration 7 days. She tripped over a dog's leash and fell and landed on it. She says it doesn' t feel any better than when she did it. PFSH Past Medical History Arthritis: Yes Asthma: No Autoimmune Disease: No Blood Disorders: No Anxiety: Yes Depression: No Heart Rhythm Problems: No Cancer: No Cardiovascular Problems: No High Cholesterol: No Chemotherapy: No Chest Pain: No Congestive Heart Failure: No COPD: No Cerebrovascular Accident: No Diabetes: No Diminished Hearing: No Diverticulitis: Yes Endocrine: No Gastrointestinal Disorders: Yes (ESOPHAGEAL STRICTURES,DIVERTICULITS) GERD: Yes Genitourinary: No Headaches: Yes Hepatitis: No Hiatal Hernia: No Heparin Induced Thrombocytopen: No Hypertension: No Immune Disorder: No Implanted Vascular Access Dvce: No Kidney Stones: No Musculoskeletal: Yes (PINCHED NERVE ON SPINAL CORD AND NECK- CHRONIC BACK/NECK PAIN) 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) Psychiatric: Yes (PANIC ATTACKS) Reproductive: No Respiratory: Yes (SEVERAL EPISODES PLEURISY, panic attacks) Immunizations Current: No Migraines: Yes Radiation Therapy: No Renal Failure: No Seizures: No Sickle Cell Disease: No Sleep Apnea: No Thyroid Disease: No Ulcer: No PNEUMOCCOCAL Vaccine (Year): 2 Menopausal: Yes Past Surgical History Abdominal Surgery: No AICD: No Cardiac Surgery: No Ear Surgery: No Endocrine Surgery: No Eye Surgery: Yes (BILATERAL LENS IMPLANTS, RIGHT LASER FOR DETACHED RETINA) Genitourinary Surgery: No Gynecologic Surgery: No Joint Replacement: No Neurologic Surgery: No Oral Surgery: Yes (LOWER JAW OSTEOTOMY) Pacemaker: No Thoracic Surgery: No Other Surgery: Yes (EPIGASTRIG STRETCHING-SEVERAL TIMES) Social History Alcohol Use: No Tobacco Use: No Substance Use: No Allergies-Medications (Allergen,Severity, Reaction): Coded Allergies: amcinonide (Unverified Allergy, Severe, Anaphylaxis, 01/08/17) beclomethasone (Unverified Allergy, Severe, Anaphylaxis, 01/08/17) betamethasone (Unverified Allergy, Severe, Anaphylaxis, 01/08/17) desoximetasone (Unverified Allergy, Severe, Anaphylaxis, 01/08/17) dexamethasone (Unverified Allergy, Severe, Anaphylaxis, 01/08/17) fludrocortisone (Unverified Allergy, Severe, Anaphylaxis, 01/08/17) flunisolide (Unverified Allergy, Severe, Anaphylaxis, 01/08/17) fluocinolone acetonide (Unverified Allergy, Severe, Anaphylaxis, 01/08/17) fluocinonide (Unverified Allergy, Severe, Anaphylaxis, 01/08/17) fluorometholone (Unverified Allergy, Severe, Anaphylaxis, 01/08/17) flurandrenolide (Unverified Allergy, Severe, Anaphylaxis, 01/08/17) fluticasone (Unverified Allergy, Severe, Anaphylaxis, 01/08/17) fluticasone furoate (Unverified Allergy, Severe, Anaphylaxis, 01/08/17) hydrocortisone (Unverified Allergy, Severe, Anaphylaxis, 01/08/17) methylprednisolone (Unverified Allergy, Severe, Anaphylaxis, 01/08/17) mometasone furoate (Unverified Allergy, Severe, Anaphylaxis, 01/08/17) prednisolone (Unverified Allergy, Severe, Anaphylaxis, 01/08/17) prednisone (Unverified Allergy, Severe, Anaphylaxis, 01/08/17) triamcinolone (Unverified Allergy, Severe, Anaphylaxis, 01/08/17) Reported Meds & Prescriptions Reported Meds & Active Scripts Active Ambien (Zolpidem Tartrate) 10 Mg Tab 10 Mg PO HS PRN Calcium + D & K (Calcium-Vitamins D & K) 500-1,000-40 Mg-Unit-Mcg Chew 1 Tab CHEW HS Reported Aspirin 81 (Aspirin) 81 Mg Tabdr 81 Mg PO DAILY Diazepam 2 Mg Tab 2 Mg PO DIRECTED PRN Hydrocodone-Acetaminophen 7.5-325 mg Tab 0.5 Tab PO BID PRN Latanoprost Opth Drops (Latanoprost) 0.005% Drops 1 Drop EACH EYE HS Refrigerate until opened. Review of Systems General / Constitutional: No: Fever HENT: No: Headaches Cardiovascular: No: Chest Pain or Discomfort Physical Exam Narrative SKIN: Focused skin assessment reveals no rash or ulcers. Skin is warm and dry. Palpation shows no induration or nodules. Psych: Normal mood and affect. Normal insight and judgment. Right hand: Patient has some old bruising over the dorsum of the hand over the region of the fourth metacarpal. It's mildly tender. No sign of infection. No neurovascular deficits Data Data Last Documented VS Vital Signs Date Time Temp Pulse Resp B/P (MAP) Pulse Ox O2 Delivery O2 Flow Rate FiO2 01/08/17 09:42 16 100 Room Air 01/08/17 09:26 98.5 86 155/73 (100) Orders Orders Hand, Complete ([id number]) (01/08/17 ) [facility] Medical Decision Making Medical Screen Exam Complete: Yes Emergency Medical Condition: Yes Medical Record Reviewed: Yes Differential Diagnosis Fracture, contusion, soft tissue injury Narrative Course I have reviewed the patient's electronic medical record. I reviewed her right hand x-rays which are normal May have some degree of soft tissue injury causing persistent pain. Her function looks good. Recommend primary care follow-up. Diagnosis Primary Impression: Contusion of right hand, initial encounter Additional Instructions: The patient was advised to follow up with their physician and return if they worsen. Med/Other Pt SpecificInfo: Other Disposition: 01 DISCHARGE HOME Condition: Stable Lyle Caballero MD Jan 08, 2017 09:41
[2017-01-08] MEDS ORDERED: ASPI-110 PO (09:52)
[2017-01-08] MEDS ORDERED: DIAZ2TAB PO (09:52)
--- NOTE | 2017-01-08 10:05 | RADRPT ---
EXAM DATE/TIME: 01/08/2017 09:48 [facility] COMPARISON: No previous studies available for comparison. INDICATIONS : Right hand pain, 4th digit, tripped over the dog. MEDICAL HISTORY : None. SURGICAL HISTORY : None. ENCOUNTER: Initial ACUITY: 1 week PAIN SCORE: 6/10 LOCATION: Right hand 4th digit FINDINGS: Three view examination of the right hand demonstrates no soft tissue swelling, dislocation, or fractu re. The carpal bones appear intact. The interphalangeal and metacarpophalangeal joints are intact. Bony mineralization is normal. CONCLUSION: Negative for fracture. Julio Calvo MD FACR on January 08, 2017 at 10:03 Board Certified Radiologist. This report was verified electronically.
[2017-01-15] MEDS ORDERED: AMBI10TA PO (08:38)
== END 2017-01-08 10:59 | disposition home or self-care (01) ==
LOC: PHED 09:18
DX: S60.221A Contusion of right hand, initial encounter (principal); W18.09XA Striking against other object with subsequent fall, initial encounter
CPT/HCPCS: 73130; 99283

== ENCOUNTER 2017-06-04 10:48 | Emergency (ER) | payer MEDICARE, MEDICAID ==
[~2017-06-04] VITALS: Ht 180.3 cm; Wt 71.4 kg
[~2017-06-04 10:48] MED LIST changes: +ASPI1TAB57 PO; -KETO0.5S2 LEFT EYE
[2017-06-04 10:56] VITALS: BP 149/80; PULSE 78; RESP 16; TEMP 98.1; O2SAT 97
[2017-06-04] MEDS ORDERED: TETANUS/DIPHTHERIA TOXOID ADULT 0.5 ML VIAL IM ONE (11:15)
--- NOTE | 2017-06-04 11:19 | PD ---
HPI Chief Complaint: Injury Time Seen by Provider: 11:09 Travel History International Travel<30 days: No Contact w/Intl Traveler<30days: No Traveled to known affect area: No History of Present Illness HPI 66-year-old female presents to the emergency room for evaluation of laceration to the right foot that occurred last night. Patient has 2 small nails sticking out of the piece of furniture and when walking by it last night, she takes the nails. States she bled a significant amount. She applied a small bottle of hydrogen peroxide, soap, water, and triple antibiotic ointment to the wound. She put a dressing on it and the bleeding eventually stopped. Unknown last tetanus. The nails were brittany. She denies history of diabetes. PFSH Past Medical History Arthritis: Yes Asthma: No Autoimmune Disease: No Blood Disorders: No Anxiety: Yes Depression: No Heart Rhythm Problems: No Cancer: No Cardiovascular Problems: No High Cholesterol: No Chemotherapy: No Chest Pain: No Congestive Heart Failure: No COPD: No Cerebrovascular Accident: No Diabetes: No Diminished Hearing: No Diverticulitis: Yes Endocrine: No Gastrointestinal Disorders: Yes (ESOPHAGEAL STRICTURES,DIVERTICULITS) GERD: Yes Genitourinary: No Headaches: Yes Hepatitis: No Hiatal Hernia: No Heparin Induced Thrombocytopen: No Hypertension: No Immune Disorder: No Implanted Vascular Access Dvce: No Kidney Stones: No Musculoskeletal: Yes (PINCHED NERVE ON SPINAL CORD AND NECK- CHRONIC BACK/NECK PAIN) 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) Psychiatric: Yes (PANIC ATTACKS) Reproductive: No Respiratory: Yes (SEVERAL EPISODES PLEURISY, panic attacks) Immunizations Current: No Migraines: Yes Radiation Therapy: No Renal Failure: No Seizures: Yes Sickle Cell Disease: No Sleep Apnea: No Thyroid Disease: No Ulcer: No PNEUMOCCOCAL Vaccine (Year): 2 ?: Not Menopausal: Yes Past Surgical History Abdominal Surgery: No AICD: No Cardiac Surgery: No Ear Surgery: No Endocrine Surgery: No Eye Surgery: Yes (BILATERAL LENS IMPLANTS, RIGHT LASER FOR DETACHED RETINA) Genitourinary Surgery: No Gynecologic Surgery: No Joint Replacement: No Neurologic Surgery: No Oral Surgery: Yes (LOWER JAW OSTEOTOMY) Pacemaker: No Thoracic Surgery: No Other Surgery: Yes (EPIGASTRIG STRETCHING-SEVERAL TIMES) Social History Alcohol Use: No Tobacco Use: No Substance Use: No Allergies-Medications (Allergen,Severity, Reaction): Coded Allergies: amcinonide (Unverified Allergy, Severe, Anaphylaxis, 06/04/17) beclomethasone (Unverified Allergy, Severe, Anaphylaxis, 06/04/17) betamethasone (Unverified Allergy, Severe, Anaphylaxis, 06/04/17) desoximetasone (Unverified Allergy, Severe, Anaphylaxis, 06/04/17) dexamethasone (Unverified Allergy, Severe, Anaphylaxis, 06/04/17) fludrocortisone (Unverified Allergy, Severe, Anaphylaxis, 06/04/17) flunisolide (Unverified Allergy, Severe, Anaphylaxis, 06/04/17) fluocinolone acetonide (Unverified Allergy, Severe, Anaphylaxis, 06/04/17) fluocinonide (Unverified Allergy, Severe, Anaphylaxis, 06/04/17) fluorometholone (Unverified Allergy, Severe, Anaphylaxis, 06/04/17) flurandrenolide (Unverified Allergy, Severe, Anaphylaxis, 06/04/17) fluticasone (Unverified Allergy, Severe, Anaphylaxis, 06/04/17) fluticasone furoate (Unverified Allergy, Severe, Anaphylaxis, 06/04/17) hydrocortisone (Unverified Allergy, Severe, Anaphylaxis, 06/04/17) methylprednisolone (Unverified Allergy, Severe, Anaphylaxis, 06/04/17) mometasone furoate (Unverified Allergy, Severe, Anaphylaxis, 06/04/17) prednisolone (Unverified Allergy, Severe, Anaphylaxis, 06/04/17) prednisone (Unverified Allergy, Severe, Anaphylaxis, 06/04/17) triamcinolone (Unverified Allergy, Severe, Anaphylaxis, 06/04/17) Reported Meds & Prescriptions Reported Meds & Active Scripts Active Ambien (Zolpidem Tartrate) 10 Mg Tab 10 Mg PO HS PRN Diazepam 2 Mg Tab 2 Mg PO BID PRN Calcium + D & K (Calcium-Vitamins D & K) 500-1,000-40 Mg-Unit-Mcg Chew 1 Tab CHEW HS Reported Aspirin 81 (Aspirin) 81 Mg Tabdr 81 Mg PO DAILY Hydrocodone-Acetaminophen 7.5-325 mg Tab 0.5 Tab PO BID PRN Latanoprost Opth Drops (Latanoprost) 0.005% Drops 1 Drop EACH EYE HS Refrigerate until opened. Review of Systems Except as stated in HPI: all other systems reviewed are Neg Physical Exam Narrative GENERAL: Well-nourished, well-developed female in no acute distress. Afebrile. Ambulatory. SKIN: Focused skin assessment warm/dry. There is a 0.5 cm superficial laceration to the right medial foot. There is a small circular wound 2 cm away. Neither are bleeding. Mild surrounding edema. No erythema, lymphangitis , or tenderness to palpation. HEAD: Normocephalic. EYES: No scleral icterus. No injection or drainage. NECK: Supple, trachea midline. No JVD or lymphadenopathy. CARDIOVASCULAR: Regular rate and rhythm without murmurs, gallops, or rubs. RESPIRATORY: Breath sounds equal bilaterally. No accessory muscle use. MUSCULOSKELETAL: No cyanosis. Less than 2 second capillary refill distally. Data Data Last Documented VS Vital Signs Date Time Temp Pulse Resp B/P (MAP) Pulse Ox O2 Delivery O2 Flow Rate FiO2 06/04/17 10:56 98.1 78 16 149/80 (103) 97 Orders Orders Ed Discharge Order (06/04/17 11:14) Tetanus/Diphtheria Tox Adult (Tetanus/Di (06/04/17 11:15) MDM Medical Decision Making Medical Screen Exam Complete: Yes Emergency Medical Condition: Yes Medical Record Reviewed: Yes Differential Diagnosis Laceration, contusion, abrasion, fracture, sprain, tetanus prophylaxis Narrative Course 66-year-old female presents to the emergency room for evaluation of a laceration to the right medial foot that occurred last night after she cut herself on 2 brittany nails. She denies significant pain. Physical exam reveals 1 superficial 0.5 cm laceration that is nonbleeding. No surrounding erythema. Mild edema but no induration. No evidence of infection. Patient was told to continue wound care with soap and water and triple antibiotic ointment. Updated on tetanus and ED. Told to follow-up with primary care physician or return for worsening symptoms. She understands and agrees to plan. Diagnosis Primary Impression: Foot laceration Qualified Codes: S91.311A - Laceration without foreign body, right foot, initial encounter Referrals: Primary Care Physician Additional Instructions: Keep wound clean and dry. Apply triple antibiotic ointment daily. Follow-up with the primary care physician. Return for worsening symptoms. Disposition: DISCHARGE HOME Condition: Stable Michaela Davis Jun 04, 2017 11:19
== END 2017-06-04 11:47 | disposition home or self-care (01) ==
LOC: PHEFT 10:48
DX: S91.311A Laceration without foreign body, right foot, initial encounter (principal); Z23 Encounter for immunization; W45.0XXA Nail entering through skin, initial encounter; Z88.8 Allergy status to other drugs, medicaments and biological substances
CPT/HCPCS: 90471; 90714